=== PATIENT | male | born 1955 | race Caucasian/White ===

== ENCOUNTER 2018-04-25 15:46 | Inpatient (IN) ==
--- NOTE | 2018-04-25 21:15 | ED ---
HPI General Chief Complaint: Extremity Injury, Lower Stated Complaint: sent Time Seen by Provider: 04/25/18 20:29 Source: patient Mode of arrival: ambulatory Limitations: no limitations History of Present Illness HPI Narrative: 63-year-old male with PMH of DM, HNT, BPH, CAd s/p CABG, bovine MVR, on aspirin presents to the ED for evaluation of chronic foot wound. Patient states that he was sent in by his banking attorney, Dr. Layne for surgery tomorrow. The patient states that he has wound care daily at home and has had low grade temps of ~99.9 frequently. He endorses chills. He voices several frustrations regarding the course of his worsening foot problem, but has no acute complaints today. He stopped taking antibiotics earlier this week. He states that he has a PICC line in the right arm. He is very concerned that he does not currently have a wound vac on his wound. He endorses compliance with his daily medications. Related Data Home Medications Medication Instructions Recorded Confirmed amlodipine 5 mg PO DAILY 04/25/18 04/25/18 aspirin 81 mg PO DAILY 04/25/18 04/25/18 atorvastatin 40 mg PO DAILY 04/25/18 04/25/18 baclofen 10 mg PO TID 04/25/18 04/25/18 finasteride 5 mg PO DAILY 04/25/18 04/25/18 furosemide 20 mg PO DAILY 04/25/18 04/25/18 hydrocodone-acetaminophen 1 tab PO Q4H 04/25/18 04/25/18 insulin degludec [Tresiba 12 unit SUBCUT DAILY 04/25/18 04/25/18 FlexTouch U-100] linezolid [Zyvox] 600 mg PO BID 04/25/18 04/25/18 lisinopril 20 mg PO DAILY 04/25/18 04/25/18 metoprolol tartrate 25 mg PO BID 04/25/18 04/25/18 pantoprazole 40 mg PO DAILY 04/25/18 04/25/18 promethazine 25 mg PO Q6H PRN 04/25/18 04/25/18 tamsulosin 0.4 mg PO DAILY 04/25/18 04/25/18 Allergies Allergy/AdvReac Type Severity Reaction Status Date / Time bee venom protein (honey bee) Allergy Anaphylaxis Verified 04/25/18 16:15 Review of Systems ROS: all other systems reviewed are negative [facility] Surgical History Surgical History Aortic valve replaced (Acute) History of foot surgery (Acute) S/P CABG x 3 (Acute) Social History Social History Smoking Status: Never smoker How Often Do You Have a Drink Containing Alcohol: Never Recent Travel in [facility] [[email or web address]] within the Last 8 Weeks: No Recent Out of Country Travel within the Last 8 Weeks: No Immunization History Tetanus Immunization: Unsure Exam Narrative Exam Narrative: GENERAL: Well-nourished, well-developed white male no acute distress. SKIN: Focused skin assessment warm/dry. There is a approximate 2-1/2 cm x 2-1/ 2 cm wound over the MP joint of the great toe of the right foot. Majority of the wound is well granulated. There is a 1 cm area of yellow biofilm. The wound has a pseudomonal odor. Mild localized erythema and tenderness. HEAD: Atraumatic. Normocephalic. EYES: Pupils equal and round. No scleral icterus. No injection or drainage. ENT: No nasal bleeding or discharge. Mucous membranes pink and moist. NECK: Trachea midline. No JVD. CARDIOVASCULAR: Regular rate and rhythm. No murmur appreciated. RESPIRATORY: No accessory muscle use. Clear to auscultation. Breath sounds equal bilaterally. GASTROINTESTINAL: Abdomen soft, non-tender, nondistended. Hepatic and splenic margins not palpable. MUSCULOSKELETAL: No obvious deformities. No clubbing. No cyanosis. No edema. PICC LINE in the right arm. FOCUSED RIGHT LOWER EXTREMITY EXAM: 2+ DP pulse. Neurovascularly intact distally on each digit. Patient is able to flex and extend the toes and ankle. NEUROLOGICAL: Awake and alert. No obvious cranial nerve deficits. Motor grossly within normal limits. Normal speech. PSYCHIATRIC: Appropriate mood and affect; insight and judgment normal. Course Initial Documented Vital Signs Temperature 98.1 F 04/25/18 16:08 Pulse Rate 62 04/25/18 16:08 Respiratory Rate 18 04/25/18 16:08 Blood Pressure 145/65 H 04/25/18 16:08 Pulse Oximetry 100 04/25/18 16:08 Last Documented Vital Signs Temperature 98.1 F 04/25/18 16:08 Pulse Rate 70 04/25/18 23:44 Respiratory Rate 16 04/25/18 23:44 Blood Pressure 198/91 H 04/25/18 23:44 Pulse Oximetry 98 04/25/18 23:44 Medical Decision Making MDM Narrative Medical decision making narrative: 63-year-old male with PMH of DM, HTN, BPH, CAD status post CABG, bovine MVR, on aspirin presents the ED for admission for surgery. Patient states that his banking attorney, Dr. Layne sent him. He has several complaints about the course of his disease but no acute issues today. Afebrile on presentation. On physical exam is a chronic wound of the MP joint of the right foot without any cellulitic changes. Basic lab work with evidence of dehydration and elevated BGL. The patient was administered 1L NS, will recheck labs. I spoke with Dr. Will who states that he does not want the patient to have antibiotics or wound vac placed. I spoke with Dr. Bellamy who agrees to accept the patient to the medical service. Please see podiatry and medicine notes for disposition. The patient has another . Registration was unable to correct this issue overnight. Medical Screen Exam Complete: Yes Emergency Medical Condition: Yes Differential Diagnosis Differential Diagnosis: Chronic foot wound versus osteomyelitis versus cellulitis versus other Lab Data Result diagrams: 04/25/18 21:44 04/25/18 21:44 Lab Results 04/25/18 04/25/18 04/25/18 Range/Units 21:44 21:44 21:44 WBC 6.5 (4.0-11.0) th/mm3 RBC 2.99 L (4.50-5.90) mil/mm3 Hgb 8.7 L (13.0-17.0) gm/dL Hct 24.5 L (39.0-51.0) % MCV 82.1 (80.0-100.0) fL MCH 28.9 (27.0-34.0) pg MCHC 35.3 (32.0-36.0) % RDW 15.5 (11.6-17.2) % Plt Count 121 L (150-450) th/mm3 MPV 8.1 (7.0-11.0) fL Neut % (Auto) 65.1 (16.0-70.0) % Lymph % (Auto) 17.6 (9.0-44.0) % Pettis % (Auto) 13.5 H (0.0-8.0) % Eos % (Auto) 3.3 (0.0-4.0) % Baso % (Auto) 0.5 (0.0-2.0) % Neut # (Auto) 4.2 (1.8-7.7) th/mm3 Lymph # (Auto) 1.1 (1.0-4.8) th/mm3 [place]ettis # (Auto) 0.9 (0.0-0.9) th/mm3 Eos # (Auto) 0.2 (0.0-0.4) th/mm3 Baso # (Auto) 0.0 (0.0-0.2) th/mm3 WBC Differential . Differential Comment Auto diff final PT 10.8 (9.8-11.6) sec INR 1.1 Ratio APTT 26.8 (23.4-31.7) sec Sodium 138 (136-145) meq/L Potassium 4.7 (3.5-5.1) meq/L Chloride 104 (98-107) meq/L Carbon Dioxide 26.1 (21.0-32.0) meq/L Anion Gap 8 (5-15) meq/L BUN 28 H (7-18) mg/dL Creatinine 1.70 H (0.60-1.30) mg/dL Estimated GFR 41 L (>89) mL/min Random Glucose 314 H (74-106) mg/dL Calcium 8.4 L (8.5-10.1) mg/dL Total Bilirubin 0.3 (0.2-1.0) mg/dL AST 14 L (15-37) U/L ALT 20 (12-78) U/L Alkaline Phosphatase 84 (45-117) U/L Total Protein 6.8 (6.4-8.2) g/dL Albumin 3.2 L (3.4-5.0) g/dL Blood Type Antibody Screen 04/25/18 Range/Units 21:44 WBC (4.0-11.0) th/mm3 RBC (4.50-5.90) mil/mm3 Hgb (13.0-17.0) gm/dL Hct (39.0-51.0) % MCV (80.0-100.0) fL MCH (27.0-34.0) pg MCHC (32.0-36.0) % RDW (11.6-17.2) % Plt Count (150-450) th/mm3 MPV (7.0-11.0) fL Neut % (Auto) (16.0-70.0) % Lymph % (Auto) (9.0-44.0) % [place]ett[place] % (Auto) (0.0-8.0) % Eos % (Auto) (0.0-4.0) % Baso % (Auto) (0.0-2.0) % Neut # (Auto) (1.8-7.7) th/mm3 Lymph # (Auto) (1.0-4.8) th/mm3 [place]ettis # (Auto) (0.0-0.9) th/mm3 Eos # (Auto) (0.0-0.4) th/mm3 Baso # (Auto) (0.0-0.2) th/mm3 WBC Differential Differential Comment PT (9.8-11.6) sec INR Ratio APTT (23.4-31.7) sec Sodium (136-145) meq/L Potassium (3.5-5.1) meq/L Chloride (98-107) meq/L Carbon Dioxide (21.0-32.0) meq/L Anion Gap (5-15) meq/L BUN (7-18) mg/dL Creatinine (0.60-1.30) mg/dL Estimated GFR (>89) mL/min Random Glucose (74-106) mg/dL Calcium (8.5-10.1) mg/dL Total Bilirubin (0.2-1.0) mg/dL AST (15-37) U/L ALT (12-78) U/L Alkaline Phosphatase (45-117) U/L Total Protein (6.4-8.2) g/dL Albumin (3.4-5.0) g/dL Blood Type O Positive Antibody Screen Negative Imaging Data Radiologist's impression: Chest X-Ray 04/25/18 21:11 CONCLUSION: No infiltrates seen. Foot X-Ray 04/25/18 21:11 CONCLUSION: Bony erosive changes at the distal medial aspect of the first metatarsal and probably the medial sesamoid at the MTP most characteristic of osteomyelitis with overlying soft tissue swelling. There is periarticular osteopenia in the right foot as well. ECG Data Attestation: I personally reviewed and interpreted this ECG as follows: Interpretation: Rate 66, sinus rhythm. AL interval 167, QRS 90, QTc [address] changes. Reviewed by Dr. Nelson. Discharge Plan Discharge Disposition Patient Disposition: 30 Still Patient Physicians Team ED Provider: Evans Nelson ED Midlevel Provider: Kiara Schultz Primary Care Provider: NON STAFF,PROVIDER Attending Provider: Gabby Bellamy Other Providers: Andrew Morales ; Silvia Will Status ED Status: Admitted Observation Patient
--- NOTE | 2018-04-25 21:49 | XR ---
EXAM DATE: 04/25/2018 9:46 PM EST AGE/SEX: 63 years / Male INDICATIONS: Evaluate for pneumonia, pneumothorax, or communicable disease. Pre-op right foot. CLINICAL DATA: This is the patient's initial encounter. Patient reports that signs and symptoms have been present for 1 day and indicates a pain score of 0/10. MEDICAL/SURGICAL HISTORY: None. CABG. COMPARISON: [facility] [place] 1[place] AP, 02/15/2018. . FINDINGS: A single AP view of the chest demonstrates the lungs to be symmetrically aerated without evidence of mass, infiltrate or effusion. The cardiomediastinal contours are unremarkable. Osseous structures a re intact. Evidence of prior median sternotomy. CONCLUSION: No infiltrates seen. Electronically signed by: Luis A Hernandez MD 04/25/2018 9:47 PM EST
--- NOTE | 2018-04-25 21:56 | XR ---
EXAM DATE: 04/25/2018 9:50 PM EST AGE/SEX: 63 years / Male INDICATIONS: Right foot infection, swelling, and inflammation. Pre-op right foot. CLINICAL DATA: This is the patient's initial encounter. Patient reports that signs and symptoms have been present for 1 month and indicates a pain score of 5/10. MEDICAL/SURGICAL HISTORY: None. None. [place] [facility] [place]. . FINDINGS: There is soft tissue swelling in the medial aspect of the first MTP with bony erosive changes at the medial aspect of the distal first metatarsal most characteristic of osteomyelitis. There may also be some erosive changes at the medial sesamoid bone at the first MTP. There is periarticular osteopenia in the right foot. CONCLUSION: Bony erosive changes at the distal medial aspect of the first metatarsal and probably the medial sesa moid at the MTP most characteristic of osteomyelitis with overlying soft tissue swelling. There is pe riarticular osteopenia in the right foot as well. Electronically signed by: Memo Braden MD 04/25/2018 9:54 PM EST
[2018-04-25 22:10] LABS: Baso % (Auto) 0.5 % (0.0-2.0); Eos # (Auto) 0.2 th/mm3 (0.0-0.4); Eos % (Auto) 3.3 % (0.0-4.0); Hematocrit 24.5 % (39.0-51.0); Hemoglobin 8.7 gm/dL (13.0-17.0); Lymph # (Auto) 1.1 th/mm3 (1.0-4.8); Lymph % (Auto) 17.6 % (9.0-44.0); Mean Corpuscular HGB Conc 35.3 % (32.0-36.0); Mean Corpuscular Hemoglobin 28.9 pg (27.0-34.0); Mean Corpuscular Volume 82.1 fL (80.0-100.0); Mean Platelet Volume 8.1 fL (7.0-11.0); Mono # (Auto) 0.9 th/mm3 (0.0-0.9); Mono % (Auto) 13.5 % (0.0-8.0); Neut # (Auto) 4.2 th/mm3 (1.8-7.7); Neut % (Auto) 65.1 % (16.0-70.0); Platelet Count 121 th/mm3 (150-450); Red Blood Count 2.99 mil/mm3 (4.50-5.90); Red Cell Distribution Width 15.5 % (11.6-17.2); White Blood Count 6.5 th/mm3 (4.0-11.0)
[2018-04-25 22:30] LABS: Albumin 3.2 g/dL (3.4-5.0); Anion Gap 8 meq/L (5-15); Aspartate Aminotransferase 14 U/L (15-37); Blood Urea Nitrogen 28 mg/dL (7-18); Calcium 8.4 mg/dL (8.5-10.1); Carbon Dioxide 26.1 meq/L (21.0-32.0); Chloride 104 meq/L (98-107); Glomerular Filtration Rate 41 mL/min (>89); Glucose,Random 314 mg/dL (74-106); Potassium 4.7 meq/L (3.5-5.1); Sodium 138 meq/L (136-145)
[2018-04-25 22:31] LABS: Alanine Aminotransferase 20 U/L (12-78)
[2018-04-25 22:33] LABS: Alkaline Phosphatase 84 U/L (45-117); Total Protein 6.8 g/dL (6.4-8.2)
[2018-04-25 22:40] LABS: Activated Partial Thrombo Time 26.8 sec (23.4-31.7); INR 1.1 Ratio; Prothrombin Time 10.8 sec (9.8-11.6)
[2018-04-25] MEDS ORDERED: Sod Chloride 0.9% Inj 1,000 ML IV.SIG ONE (22:46)
[2018-04-26] MEDS ORDERED: Acetaminophen 325 MG Tablet PO PRN (01:03)
[2018-04-26] MEDS ORDERED: Zolpidem Tartrate 5 MG Tablet PO PRN (01:03)
[2018-04-26] MEDS ORDERED: Bisacodyl 10 MG Supp RECTAL PRN (01:03)
[2018-04-26] MEDS ORDERED: Dextrose 50% in Water 50 ML Vial IV.PUSH PRN (01:05)
[2018-04-26] MEDS ORDERED: Sodium Chloride 0.9% 2 ML Flush PRN IV.FLUSH (01:08)
[2018-04-26] MEDS ORDERED: hydrALAZINE HCl Inj 20 MG/ML Vial IV.PUSH ONE (01:15)
[2018-04-26] MEDS: Sod Chloride 0.9% Inj 1,000 ML IV.CONT SCH ×3 (01:23→18:35)
--- NOTE | 2018-04-26 05:09 | P.HP ---
History of Present Illness Service: [facility] Primary Care Physician: PROVIDER NON STAFF History of Present Illness: 63-year-old male with past medical history significant for hypertension, diabetes mellitus, coronary artery disease and hyperlipidemia presents to the emergency department for a scheduled bone biopsy of his right foot with Dr. Layne. The patient reports that he was told he would be a direct admission however on his arrival he was instructed to come to the emergency department. Per the patient, he is being treated for osteomyelitis of the right foot. He was previously on Zyvox through a PICC line for the past 3 weeks that was stopped on Sunday at the instruction of his infectious disease doctor, Dr. 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 He also had a wound VAC present until 3 days ago. The patient denies any recent fevers/chills. No chest pain or shortness of breath. No abdominal pain. No nausea/vomiting/ diarrhea. No focal neurologic symptoms. Inpatient Certification: I certify that the inpatient services were ordered in accordance with Medicare regulations governing the order. This includes certification that hospital inpatient services are reasonable and necessary and in the case of services not specified as inpatient-only under 42 CFR 419.22(n), that they are appropriately provided as inpatient services in accordance to with the 2-midnight benchmark under 43 CFR 412.3(e) Estimated Total Length of Stay (Days): 3 Plans for Post Hospital Care: Home Review of Systems All other systems reviewed negative except as stated [facility] - History History Provided By: Patient - Medical History Medical History: Medical History (Last Updated 04/26/18 @ 04:56 by Gabby Bellamy MD) Coronary artery disease Diabetes mellitus Hypertension - Surgical History Surgical History: Surgical History (Last Reviewed 04/26/18 @ 04:56 by Gabby Bellamy MD) Aortic valve replaced History of foot surgery S/P CABG x 3 - Family History Family History: Family History (Last Updated 04/26/18 @ 04:56 by Gabby Bellamy MD) Other Coronary artery disease Diabetes mellitus - Social History I have reviewed the patient's Social History: Yes - Tobacco History Smoking Status: Never smoker - Alcohol History How Often Do You Have a Drink Containing Alcohol: Never - Travel History Recent Travel in the [facility] Within the Last 8 Weeks: No Recent Travel Out of the Country Within the Last 8 Weeks: No - Immunization History Tetanus Immunization: Unsure Medications and Allergies Active Medications: Active Medications Acetaminophen (Tylenol) 650 mg PO Q4H PRN PRN Reason: Temp > 100.4 Hydrocodone Bitart/Acetaminophen ([place] 10/325) 1 tab PO Q4H PRN PRN Reason: pain>4 Amlodipine Besylate (Norvasc) 5 mg PO DAILY@0600 [facility] Atorvastatin Calcium (Lipitor) 40 mg PO DAILY [facility] Baclofen (Lioresal) 10 mg PO TID [facility] Bisacodyl (Dulcolax Supp) 10 mg RECTAL DAILY PRN PRN Reason: SEVERE CONSITIPATION Dextrose (D50w Vial) 50 ml IV.PUSH UNSCH PRN PRN Reason: PER HYPOGLYCEMIA PROTOCOL Finasteride (Proscar) 5 mg PO DAILY [facility] Furosemide (Lasix) 20 mg PO DAILY [facility] Glucagon (Glucagon Inj) 1 mg OTHER PRN PRN PRN Reason: for Hypoglycemia Protocol Sodium Chloride (Ns Inj) 1,000 mls @ 75 mls/hr IV.CONT .[id number] [facility] Last Admin: 04/26/18 01:23 Dose: 75 mls/hr Insulin Aspart (Novolog Insulin Correctional Sugar Inj) 0 unit SQ ACHS JENNIFER; Protocol Lisinopril (Prinivil) 20 mg PO DAILY [facility] Metoprolol Tartrate (Lopressor) 25 mg PO BID [facility] Pantoprazole Sodium (Protonix) 40 mg PO DAILY [facility] Promethazine HCl (Phenergan) 25 mg PO Q6H PRN PRN Reason: Nausea Sennosides (Senokot) 17.2 mg PO Q12H PRN PRN Reason: Moderate Constipation Sodium Chloride (Ns Flush) 2 ml IV.FLUSH BID [facility] Sodium Chloride (Ns Flush) 2 ml IV.FLUSH PRN PRN PRN Reason: FLUSH AFTER USING IV ACCESS Tamsulosin HCl (Flomax) 0.4 mg PO DAILY [facility] Zolpidem Tartrate (Ambien) 5 mg PO HS PRN PRN Reason: INSOMNIA Allergies Allergy/AdvReac Type Severity Reaction Status Date / Time bee venom protein (honey bee) Allergy Anaphylaxis Verified 04/25/18 16:15 Home Medications Medication Instructions Recorded Confirmed Type amlodipine 5 mg PO DAILY 04/25/18 04/25/18 History aspirin 81 mg PO DAILY 04/25/18 04/25/18 History atorvastatin 40 mg PO DAILY 04/25/18 04/25/18 History baclofen 10 mg PO TID 04/25/18 04/25/18 History finasteride 5 mg PO DAILY 04/25/18 04/25/18 History furosemide 20 mg PO DAILY 04/25/18 04/25/18 History hydrocodone-acetaminophen 1 tab PO Q4H 04/25/18 04/25/18 History insulin degludec [Tresiba 12 unit SUBCUT DAILY 04/25/18 04/25/18 History FlexTouch U-100] linezolid [Zyvox] 600 mg PO BID 04/25/18 04/25/18 History lisinopril 20 mg PO DAILY 04/25/18 04/25/18 History metoprolol tartrate 25 mg PO BID 04/25/18 04/25/18 History pantoprazole 40 mg PO DAILY 04/25/18 04/25/18 History promethazine 25 mg PO Q6H PRN 04/25/18 04/25/18 History tamsulosin 0.4 mg PO DAILY 04/25/18 04/25/18 History Exam Vital signs: Vital Signs 04/25/18 16:08 04/25/18 21:30 04/25/18 22:20 Temperature 98.1 F Pulse Rate 62 68 Respiratory Rate 18 16 Blood Pressure 145/65 H 178/79 H Pulse Oximetry 100 97 98 04/25/18 23:12 04/25/18 23:44 04/26/18 01:21 Temperature Pulse Rate 70 68 Respiratory Rate 16 16 16 Blood Pressure 198/91 H 202/91 H Pulse Oximetry 98 98 04/26/18 01:27 04/26/18 01:32 04/26/18 01:37 Temperature Pulse Rate 71 70 72 Respiratory Rate 18 Blood Pressure 178/79 H 161/72 H 154/59 H Pulse Oximetry 97 04/26/18 01:42 04/26/18 01:47 04/26/18 01:52 Temperature Pulse Rate 72 70 70 Respiratory Rate 18 Blood Pressure 146/65 H 139/65 141/62 H Pulse Oximetry 97 04/26/18 03:58 Temperature 98.5 F Pulse Rate 76 Respiratory Rate 17 Blood Pressure 190/90 H Pulse Oximetry 96 Intake & Output 04/25/18 04/25/18 04/26/18 06:59 18:59 06:59 Intake Total 1000 / 1000 Balance 1000 / 1000 Weight 92.986 kg Intake: IV 1000 / 1000 NS Inj 1,000 ML @ Wide Open IV. 1000 / 1000 SIG BOLUS ONE Rx#:[id number] Narrative: Gen.: No acute distress Head: Normocephalic. Atraumatic. EENT: Pupils equal round and reactive to light. Nose without drainage. Airway intact. Throat without injection. Cardiovascular: Regular rate and rhythm. No murmurs, rubs or gallops. Respiratory: Lungs clear to auscultation bilaterally. No wheezes or rhonchi. Abdomen: Soft, nontender, nondistended. No peritoneal signs. Musculoskeletal: No gross deformities. No edema. Skin: Right foot wound, dressed. Dressing clean/dry/intact. Neuro: Sensory and motor grossly intact. Cranial nerves II through XII grossly intact. Results - Labs CBC & Chem 7: 04/25/18 21:44 04/25/18 21:44 Labs: Laboratory Results - last 24 hr 04/25/18 04/25/18 04/25/18 21:44 21:44 21:44 WBC 6.5 RBC 2.99 L Hgb 8.7 L Hct 24.5 L MCV 82.1 MCH 28.9 MCHC 35.3 RDW 15.5 Plt Count 121 L MPV 8.1 Neut % (Auto) 65.1 Lymph % (Auto) 17.6 [place] % (Auto) 13.5 H Eos % (Auto) 3.3 Baso % (Auto) 0.5 Neut # (Auto) 4.2 Lymph # (Auto) 1.1 [place] # (Auto) 0.9 Eos # (Auto) 0.2 Baso # (Auto) 0.0 WBC Differential . Differential Comment Auto diff final PT 10.8 INR 1.1 APTT 26.8 Sodium 138 Potassium 4.7 Chloride 104 Carbon Dioxide 26.1 Anion Gap 8 BUN 28 H Creatinine 1.70 H Estimated GFR 41 L Random Glucose 314 H Calcium 8.4 L Total Bilirubin 0.3 AST 14 L ALT 20 Alkaline Phosphatase 84 Total Protein 6.8 Albumin 3.2 L Blood Type Antibody Screen 04/25/18 21:44 WBC RBC Hgb Hct MCV MCH MCHC RDW Plt Count MPV Neut % (Auto) Lymph % (Auto) [place] % (Auto) Eos % (Auto) Baso % (Auto) Neut # (Auto) Lymph # (Auto) [place] # (Auto) Eos # (Auto) Baso # (Auto) WBC Differential Differential Comment PT INR APTT Sodium Potassium Chloride Carbon Dioxide Anion Gap BUN Creatinine Estimated GFR Random Glucose Calcium Total Bilirubin AST ALT Alkaline Phosphatase Total Protein Albumin Blood Type O Positive Antibody Screen Negative - Imaging Impressions Chest X-Ray 04/25/18 21:11 CONCLUSION: No infiltrates seen. Foot X-Ray 04/25/18 21:11 CONCLUSION: Bony erosive changes at the distal medial aspect of the first metatarsal and probably the medial sesamoid at the MTP most characteristic of osteomyelitis with overlying soft tissue swelling. There is periarticular osteopenia in the right foot as well. Caprini VTE Risk Assessment Caprini VTE Risk Assessment: Moderate/High Risk (score >= 2) Caprini Risk Assessment Model: Point Value = 1 Point Value = 2 Point Value = 3 Point Value = 5 Age 41-60 Minor surgery BMI > 25 kg/m2 Swollen legs Varicose veins or History of unexplained or recurrent spontaneous Oral contraceptives or hormone replacement Sepsis (< 1 month) Serious lung disease, including pneumonia (< 1 month) Abnormal pulmonary function Acute myocardial infarction Congestive heart failure (< 1 month) History of inflammatory bowel disease Medical patient at bed rest Age 61-74 Arthroscopic surgery Major open surgery (> 45 min) Laparoscopic surgery (> 45 min) Malignancy Confined to bed (> 72 hours) Immobilizing plaster cast Central venous access Age >= 75 History of VTE Family history of VTE Factor V Leiden Prothrombin [id number] Lupus anticoagulant Anticardiolipin antibodies Elevated serum homocysteine Heparin-induced thrombocytopenia Other congenital or acquired thrombophilia Stroke (< 1 month) Elective arthroplasty Hip, pelvis, or leg fracture Acute spinal cord injury (< 1 month) Prophylaxis Regimen: Total Risk Factor Score Risk Level Prophylaxis Regimen 0-1 Low Early ambulation 2 Moderate Order ONE of the following: *Sequential Compression Device (SCD) *Heparin 5000 units SQ BID 3-4 Higher Order ONE of the following medications: *Heparin 5000 units SQ TID *Enoxaparin/Lovenox 40 mg SQ daily (WT < 150 kg, CrCl > 30 mL/min) *Enoxaparin/Lovenox 30 mg SQ daily (WT < 150 kg, CrCl > 10-29 mL/min) *Enoxaparin/Lovenox 30 mg SQ BID (WT < 150 kg, CrCl > 30 mL/min) AND/OR *Sequential Compression Device (SCD) 5 or more Highest Order ONE of the following medications: *Heparin 5000 units SQ TID (Preferred with Epidurals) *Enoxaparin/Lovenox 40 mg SQ daily (WT < 150 kg, CrCl > 30 mL/min) *Enoxaparin/Lovenox 30 mg SQ daily (WT < 150 kg, CrCl > 10-29 mL/min) *Enoxaparin/Lovenox 30 mg SQ BID (WT < 150 kg, CrCl > 30 mL/min) AND *Sequential Compression Device (SCD) Assessment and Plan - Plan Assessment/plan: 1. Right foot osteomyelitis Patient with known MRSA osteomyelitis, admitted at the recommendation of his oxygen plant operator for bone biopsy Foot x-ray significant for bony erosive changes at the distal medial aspect of the first metatarsal most characteristic of osteomyelitis Per podiatry recommendations, holding antibiotics until after bone biopsy completed. See ED documentation for further details. Podiatry consulted, appreciate assistance 2. Coronary artery disease Status post CABG Continue home medications Holding aspirin for bone biopsy 3. Diabetes Sliding-scale insulin Monitor blood glucose 4. Hypertension/hyperlipidemia Continue home medications 5. Acute renal insufficiency Cr 1.70, baseline unknown Likely chronic component IV fluid hydration Monitor renal function FEN N.p.o. Electrolytes: Monitor and replete as needed NS at 100 cc/hour Holding pharmacologic anticoagulation for surgical intervention
[2018-04-26] MEDS: amLODIPine 5 MG Tablet PO SCH (05:18)
[2018-04-26 05:40] LABS: Baso # (Auto) 0.1 th/mm3 (0.0-0.2); Baso % (Auto) 0.9 % (0.0-2.0); Eos # (Auto) 0.2 th/mm3 (0.0-0.4); Eos % (Auto) 2.5 % (0.0-4.0); Hematocrit 23.4 % (39.0-51.0); Hemoglobin 8.3 gm/dL (13.0-17.0); Lymph # (Auto) 0.9 th/mm3 (1.0-4.8); Lymph % (Auto) 12.7 % (9.0-44.0); Mean Corpuscular HGB Conc 35.4 % (32.0-36.0); Mean Platelet Volume 8.1 fL (7.0-11.0); Mono # (Auto) 0.9 th/mm3 (0.0-0.9); Mono % (Auto) 11.9 % (0.0-8.0); Neut # (Auto) 5.2 th/mm3 (1.8-7.7); Platelet Count 108 th/mm3 (150-450); Red Blood Count 2.86 mil/mm3 (4.50-5.90); Red Cell Distribution Width 15.4 % (11.6-17.2); White Blood Count 7.2 th/mm3 (4.0-11.0)
[2018-04-26 06:05] LABS: Carbon Dioxide 24.5 meq/L (21.0-32.0); Potassium 4.2 meq/L (3.5-5.1)
[2018-04-26] MEDS ORDERED: amLODIPine 5 MG Tablet PO SCH (09:00)
[2018-04-26] MEDS: Furosemide 20 MG Tablet PO SCH (09:07)
[2018-04-26] MEDS: Finasteride 5 MG Tablet PO SCH (09:07)
[2018-04-26] MEDS: Lisinopril 20 MG Tablet PO SCH (09:07)
[2018-04-26] MEDS: Baclofen 10 MG Tablet PO SCH ×3 (09:07→18:25)
[2018-04-26] MEDS: Metoprolol Tartrate 25 MG Tablet PO SCH ×2 (09:08→21:04)
[2018-04-26] MEDS: Insulin NovoLOG Aspart Correctional Sugar Inj SQ SCH ×4 (09:09→21:40)
[2018-04-26] MEDS: Sodium Chloride 0.9% 2 ML Flush BID IV.FLUSH SCH ×2 (09:09→22:27)
--- NOTE | 2018-04-26 14:29 | ECG ---
Date Performed: 04/25/2018 Time Performed: 21:41:29 PTAGE: 63 years EKG: Sinus rhythm PROBABLE INFERIOR MYOCARDIAL INFARCTION ABNORMAL ECG NO PREVIOUS TRACING DOCTOR: Afia Fernandez Interpretating Date/Time 04/26/2018 14:27:19
[2018-04-26] MEDS ORDERED: Succinylcholine Inj 100 MG/5 ML Syringe IV.PUSH ONE (15:50)
[2018-04-26] MEDS ORDERED: Glycopyrrolate Inj 1 MG/5 ML Syringe IV.PUSH ONE (15:50)
[2018-04-26] MEDS ORDERED: Bupivacaine PF 0.5% Inj 30 ML Vial ONE (16:14)
--- NOTE | 2018-04-26 16:30 | P.PN ---
Subjective Interval history: Follow up for right foot infection: Patient seen and examined, awake alert and oriented x3. Patient very anxious, has multiple complaints and concerns about his blood pressure. Blood pressure this morning 201/89. Patient very concerned that fifth floor staff cannot administer hydralazine as he was promised. Informed that the staff is not able to give certain types of IV medications to treat blood pressure. Informed him that I have ordered Vasotec PRN. He has just taken his morning medications so we will reevaluate his blood pressure in 1 hour. Reassurance provided to patient, RN and charge nurse at bedside. Physical Exam Vital signs: Vital Signs 04/25/18 21:30 04/25/18 22:20 04/25/18 23:12 Temperature Pulse Rate 68 Respiratory Rate 16 16 Blood Pressure 178/79 H Pulse Oximetry 97 98 04/25/18 23:44 04/26/18 01:21 04/26/18 01:27 Temperature Pulse Rate 70 68 71 Respiratory Rate 16 16 Blood Pressure 198/91 H 202/91 H 178/79 H Pulse Oximetry 98 98 04/26/18 01:32 04/26/18 01:37 04/26/18 01:42 Temperature Pulse Rate 70 72 72 Respiratory Rate 18 18 Blood Pressure 161/72 H 154/59 H 146/65 H Pulse Oximetry 97 97 04/26/18 01:47 04/26/18 01:52 04/26/18 03:58 Temperature 98.5 F Pulse Rate 70 70 76 Respiratory Rate 17 Blood Pressure 139/65 141/62 H 190/90 H Pulse Oximetry 96 04/26/18 08:00 04/26/18 11:15 04/26/18 12:00 Temperature 98.1 F 97.9 F 98.1 F Pulse Rate 84 58 L 84 Respiratory Rate 20 20 20 Blood Pressure 146/73 H 159/74 H 154/73 H Pulse Oximetry 98 98 98 Intake & Output 04/25/18 04/26/18 04/26/18 18:59 06:59 18:59 Intake Total 1000 / 1000 1000 / 1000 Balance 1000 / 1000 1000 / 1000 Weight 92.986 kg 92.98 kg Intake: IV 1000 / 1000 1000 / 1000 NS Inj 1,000 ML @ 100 mls/hr IV 1000 / 1000 .CONT .Q10H [facility] Rx#:[id number] NS Inj 1,000 ML @ Wide Open IV. 1000 / 1000 SIG BOLUS ONE Rx#:[id number] Other: # Voids 1 Date of Last Bowel Movement 04/26/18 04/26/18 Weight On Admission 92.98 kg Narrative: Gen.: No acute distress Head: Normocephalic. Atraumatic. EENT: Pupils equal round and reactive to light. Nose without drainage. Airway intact. Throat without injection. Cardiovascular: Regular rate and rhythm. No murmurs, rubs or gallops. Respiratory: Lungs clear to auscultation bilaterally. No wheezes or rhonchi. Abdomen: Soft, nontender, nondistended. No peritoneal signs. Musculoskeletal: No gross deformities. Bilateral lower extremities with pretibial edema, right leg greater than left. Pedal pulses difficult to palpate on the right foot due to edema. Left pedal pulses 1+. Skin: Right foot wound, dressed. Dressing clean/dry/intact. Neuro: Awake, alert oriented x3. No focal deficits Results - Labs CBC & Chem 7: 04/26/18 05:25 04/26/18 05:25 Laboratory Results - last 24 hr 04/25/18 04/25/18 04/25/18 21:44 21:44 21:44 WBC 6.5 RBC 2.99 L Hgb 8.7 L Hct 24.5 L MCV 82.1 MCH 28.9 MCHC 35.3 RDW 15.5 Plt Count 121 L MPV 8.1 Neut % (Auto) 65.1 Lymph % (Auto) 17.6 Mills % (Auto) 13.5 H Eos % (Auto) 3.3 Baso % (Auto) 0.5 Neut # (Auto) 4.2 Lymph # (Auto) 1.1 [place] # (Auto) 0.9 Eos # (Auto) 0.2 Baso # (Auto) 0.0 WBC Differential . Differential Comment Auto diff final PT 10.8 INR 1.1 APTT 26.8 Sodium 138 Potassium 4.7 Chloride 104 Carbon Dioxide 26.1 Anion Gap 8 BUN 28 H Creatinine 1.70 H Estimated GFR 41 L POC Glucose Random Glucose 314 H Calcium 8.4 L Total Bilirubin 0.3 AST 14 L ALT 20 Alkaline Phosphatase 84 Total Protein 6.8 Albumin 3.2 L Blood Type Antibody Screen 04/25/18 04/26/18 04/26/18 21:44 05:25 05:25 WBC 7.2 RBC 2.86 L Hgb 8.3 L Hct 23.4 L MCV 82.0 MCH 29.0 MCHC 35.4 RDW 15.4 Plt Count 108 L MPV 8.1 Neut % (Auto) 72.0 H Lymph % (Auto) 12.7 [place] % (Auto) 11.9 H Eos % (Auto) 2.5 Baso % (Auto) 0.9 Neut # (Auto) 5.2 Lymph # (Auto) 0.9 L [place] # (Auto) 0.9 Eos # (Auto) 0.2 Baso # (Auto) 0.1 WBC Differential . Differential Comment Auto diff final PT INR APTT Sodium 140 Potassium 4.2 Chloride 107 Carbon Dioxide 24.5 Anion Gap 9 BUN 28 H Creatinine 1.56 H Estimated GFR 45 L POC Glucose Random Glucose 242 H Calcium 8.0 L Total Bilirubin AST ALT Alkaline Phosphatase Total Protein Albumin Blood Type O Positive Antibody Screen Negative 04/26/18 04/26/18 08:12 12:49 WBC RBC Hgb Hct MCV MCH MCHC RDW Plt Count MPV Neut % (Auto) Lymph % (Auto) [place] % (Auto) Eos % (Auto) Baso % (Auto) Neut # (Auto) Lymph # (Auto) [place] # (Auto) Eos # (Auto) Baso # (Auto) WBC Differential Differential Comment PT INR APTT Sodium Potassium Chloride Carbon Dioxide Anion Gap BUN Creatinine Estimated GFR POC Glucose 253 H 139 H Random Glucose Calcium Total Bilirubin AST ALT Alkaline Phosphatase Total Protein Albumin Blood Type Antibody Screen - Imaging Impressions Chest X-Ray 04/25/18 21:11 CONCLUSION: No infiltrates seen. Foot X-Ray 04/25/18 21:11 CONCLUSION: Bony erosive changes at the distal medial aspect of the first metatarsal and probably the medial sesamoid at the MTP most characteristic of osteomyelitis with overlying soft tissue swelling. There is periarticular osteopenia in the right foot as well. 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 - Methicillin resistant Staphylococcus aureus infection, unspecified site Status: Chronic (3) Diabetes 1.5, managed as type 2 Code(s): E10.9 - Type 1 diabetes mellitus without complications Status: Chronic (4) Hypertension Code(s): I10 - Essential (primary) hypertension Status: Chronic (5) Renal insufficiency Code(s): N28.9 - Disorder of kidney and ureter, unspecified Status: Acute (6) Anxiety Code(s): F41.9 - Anxiety disorder, unspecified Status: Acute - Plan 63-year-old male with past medical history significant for hypertension, diabetes mellitus, coronary artery disease and hyperlipidemia presents to the emergency department for a scheduled bone biopsy of his right foot with Dr. Layne. Right foot osteomyelitis Hx of incision and drainage of right foot 02/16/2018 and right foot redebridement 02/19 Patient with known MRSA osteomyelitis, admitted at the recommendation of his campus director for bone biopsy Foot x-ray significant for bony erosive changes at the distal medial aspect of the first metatarsal most characteristic of osteomyelitis -Per podiatry recommendations, holding antibiotics until after bone biopsy completed. See ED documentation for further details. -Podiatry consulted, appreciate assistance Coronary artery disease Status post CABG -Holding aspirin for bone biopsy Diabetes Blood glucose elevated -Sliding-scale insulin -Add Levemir 12 units SQ daily Hypertension/hyperlipidemia -Continue Prinivil, Lopressor, Lasix, Norvasc -continue Lipitor CKD (stage III) Cr 1.70 -continue IV fluid hydration -Monitor renal function -avoid nephrotoxic agents History of prosthetic valve replacement -Had recent echo -stable, continue medical management Hx of urinary retention -continue Flomax. Anemia Likely due to CKD -monitor HH BMP in am Holding pharmacologic anticoagulation for surgical intervention Code Status: Full code Discussed Condition With: RN, pt, charge nurse on Discharge Planning: Likely HHC in 2-3 days (1) Osteomyelitis Qualifiers: Osteomyelitis type: unspecified type Osteomyelitis location: foot (4) Hypertension Qualifiers: Hypertension type: essential hypertension Qualified Code(s): I10 - Essential (primary) hypertension
--- NOTE | 2018-04-26 16:40 | P.CONPOD ---
History of Present Illness Service: Podiatry Consult date: 04/26/18 Reason for Consult: right foot infection, possible osteomyelitis Primary Care Provider: PROVIDER NON STAFF History of Present Illness: Patient had gas gangrene a few months ago and has been on IV antibiotics with wound care and wound vac to right foot. He had areas of beginning necrotic tissue to the medial aspect of the capsule and I explained that bone is beneath that area and he would need to undergo bone biopsy prior to any kind of grafting over the wound. Patient was admitted for further work up and medical/ surgical management of this infection to try to achieve resolution. He has minimal discomfort secondary to neuropathy Review of Systems All other systems reviewed negative except as stated in HPI PMFSH - History History Provided By: Patient - Medical History Medical History: Medical History (Last Updated 04/26/18 @ 04:56 by Gabby Bellamy MD) Coronary artery disease Diabetes mellitus Hypertension - Surgical History Surgical History: Surgical History (Last Reviewed 04/26/18 @ 04:56 by Gabby Bellamy MD) Aortic valve replaced History of foot surgery S/P CABG x 3 - Family History Family History: Family History (Last Updated 04/26/18 @ 04:56 by Gabby Bellamy MD) Other Coronary artery disease Diabetes mellitus - Tobacco History Second Hand Smoke Exposure: No Smoking Status: Never smoker - Alcohol History How Often Do You Have a Drink Containing Alcohol: Never - Substance Use History Substance History: No History of Abuse - Travel History Recent Travel in the [place] Within the Last 8 Weeks: No Recent Travel Out of the Country Within the Last 8 Weeks: No - Immunization History Tetanus Immunization: Unsure Medications and Allergies Active Medications: Active Medications Acetaminophen (Tylenol) 650 mg PO Q4H PRN PRN Reason: Temp > 100.4 Hydrocodone Bitart/Acetaminophen (Laverne 10/325) 1 tab PO Q4H PRN PRN Reason: pain>4 Amlodipine Besylate (Norvasc) 5 mg PO DAILY@0600 [facility] Last Admin: 04/26/18 05:18 Dose: 5 mg Atorvastatin Calcium (Lipitor) 40 mg PO DAILY [facility] Last Admin: 04/26/18 09:08 Dose: 40 mg Baclofen (Lioresal) 10 mg PO TID [facility] Last Admin: 04/26/18 13:23 Dose: 10 mg Bisacodyl (Dulcolax Supp) 10 mg RECTAL DAILY PRN PRN Reason: SEVERE CONSITIPATION Dextrose (D50w Vial) 50 ml IV.PUSH UNSCH PRN PRN Reason: PER HYPOGLYCEMIA PROTOCOL Enalaprilat (Vasotec Inj) 1.25 mg IV.PUSH Q6H PRN PRN Reason: SBP> 165 or DBP> 90 Finasteride (Proscar) 5 mg PO DAILY [facility] Last Admin: 04/26/18 09:07 Dose: 5 mg Furosemide (Lasix) 20 mg PO DAILY [facility] Last Admin: 04/26/18 09:07 Dose: 20 mg Glucagon (Glucagon Inj) 1 mg OTHER PRN PRN PRN Reason: for Hypoglycemia Protocol Sodium Chloride (Ns Inj) 1,000 mls @ 100 mls/hr IV.CONT .Q10H [facility] Last Admin: 04/26/18 13:30 Dose: 75 mls/hr Insulin Aspart (Novolog Insulin Correctional Sugar Inj) 0 unit SQ ACHS [facility]; Protocol Last Admin: 04/26/18 13:02 Dose: Not Given Insulin Detemir (Levemir Inj) 12 unit SQ DAILY [facility] Lisinopril (Prinivil) 20 mg PO DAILY [facility] Last Admin: 04/26/18 09:07 Dose: 20 mg Metoprolol Tartrate (Lopressor) 25 mg PO BID [facility] Last Admin: 04/26/18 09:08 Dose: 25 mg Pantoprazole Sodium (Protonix) 40 mg PO DAILY [facility] Last Admin: 04/26/18 09:07 Dose: 40 mg Promethazine HCl (Phenergan) 25 mg PO Q6H PRN PRN Reason: Nausea Last Admin: 04/26/18 05:19 Dose: 25 mg Sennosides (Senokot) 17.2 mg PO Q12H PRN PRN Reason: Moderate Constipation Sodium Chloride (Ns Flush) 2 ml IV.FLUSH BID [facility] Last Admin: 04/26/18 09:09 Dose: 2 ml Sodium Chloride (Ns Flush) 2 ml IV.FLUSH PRN PRN PRN Reason: FLUSH AFTER USING IV ACCESS Tamsulosin HCl (Flomax) 0.4 mg PO DAILY [facility] Last Admin: 04/26/18 09:07 Dose: 0.4 mg Zolpidem Tartrate (Ambien) 5 mg PO HS PRN PRN Reason: INSOMNIA Allergies Allergy/AdvReac Type Severity Reaction Status Date / Time bee venom protein (honey bee) Allergy Anaphylaxis Verified 04/25/18 16:15 Home Medications Medication Instructions Recorded Confirmed Type amlodipine 5 mg PO DAILY 04/25/18 04/25/18 History aspirin 81 mg PO DAILY 04/25/18 04/25/18 History atorvastatin 40 mg PO DAILY 04/25/18 04/25/18 History baclofen 10 mg PO TID 04/25/18 04/25/18 History finasteride 5 mg PO DAILY 04/25/18 04/25/18 History furosemide 20 mg PO DAILY 04/25/18 04/25/18 History hydrocodone-acetaminophen 1 tab PO Q4H 04/25/18 04/25/18 History insulin degludec [Tresiba 12 unit SUBCUT DAILY 04/25/18 04/25/18 History FlexTouch U-100] linezolid [Zyvox] 600 mg PO BID 04/25/18 04/25/18 History lisinopril 20 mg PO DAILY 04/25/18 04/25/18 History metoprolol tartrate 25 mg PO BID 04/25/18 04/25/18 History pantoprazole 40 mg PO DAILY 04/25/18 04/25/18 History promethazine 25 mg PO Q6H PRN 04/25/18 04/25/18 History tamsulosin 0.4 mg PO DAILY 04/25/18 04/25/18 History Physical Exam Vital signs: Vital Signs 04/25/18 21:30 04/25/18 22:20 04/25/18 23:12 Temperature Pulse Rate 68 Respiratory Rate 16 16 Blood Pressure 178/79 H Pulse Oximetry 97 98 04/25/18 23:44 04/26/18 01:21 04/26/18 01:27 Temperature Pulse Rate 70 68 71 Respiratory Rate 16 16 Blood Pressure 198/91 H 202/91 H 178/79 H Pulse Oximetry 98 98 04/26/18 01:32 04/26/18 01:37 04/26/18 01:42 Temperature Pulse Rate 70 72 72 Respiratory Rate 18 18 Blood Pressure 161/72 H 154/59 H 146/65 H Pulse Oximetry 97 97 04/26/18 01:47 04/26/18 01:52 04/26/18 03:58 Temperature 98.5 F Pulse Rate 70 70 76 Respiratory Rate 17 Blood Pressure 139/65 141/62 H 190/90 H Pulse Oximetry 96 04/26/18 08:00 04/26/18 11:15 04/26/18 12:00 Temperature 98.1 F 97.9 F 98.1 F Pulse Rate 84 58 L 84 Respiratory Rate 20 20 20 Blood Pressure 146/73 H 159/74 H 154/73 H Pulse Oximetry 98 98 98 Intake & Output 04/25/18 04/26/18 04/26/18 18:59 06:59 18:59 Intake Total 1000 / 1000 1000 / 1000 Balance 1000 / 1000 1000 / 1000 Weight 92.986 kg 92.98 kg Intake: IV 1000 / 1000 1000 / 1000 NS Inj 1,000 ML @ 100 mls/hr IV 1000 / 1000 .CONT .Q10H [facility] Rx#:[id number] NS Inj 1,000 ML @ Wide Open IV. 1000 / 1000 SIG BOLUS ONE Rx#:[id number] Other: # Voids 1 Date of Last Bowel Movement 04/26/18 04/26/18 Weight On Admission 92.98 kg Narrative: Right foot sensation to light touch absent, brisk capillary refill to digits, minimal edema. No purulence. No malodor. There is a granular wound over medial/plantar 1st metatarsophalangeal joint area with central necrotic tissue of medial 1st MTP joint capsule present 1cm x 1cm area. Entire wound measures 4 x 3.2 x 0.5cm. Results - Labs CBC & Chem 7: 04/26/18 05:25 04/26/18 05:25 Laboratory Results - last 24 hr 04/25/18 04/25/18 04/25/18 21:44 21:44 21:44 WBC 6.5 RBC 2.99 L Hgb 8.7 L Hct 24.5 L MCV 82.1 MCH 28.9 MCHC 35.3 RDW 15.5 Plt Count 121 L MPV 8.1 Neut % (Auto) 65.1 Lymph % (Auto) 17.6 [place] % (Auto) 13.5 H Eos % (Auto) 3.3 Baso % (Auto) 0.5 Neut # (Auto) 4.2 Lymph # (Auto) 1.1 [place] # (Auto) 0.9 Eos # (Auto) 0.2 Baso # (Auto) 0.0 WBC Differential . Differential Comment Auto diff final PT 10.8 INR 1.1 APTT 26.8 Sodium 138 Potassium 4.7 Chloride 104 Carbon Dioxide 26.1 Anion Gap 8 BUN 28 H Creatinine 1.70 H Estimated GFR 41 L POC Glucose Random Glucose 314 H Calcium 8.4 L Total Bilirubin 0.3 AST 14 L ALT 20 Alkaline Phosphatase 84 Total Protein 6.8 Albumin 3.2 L Blood Type Antibody Screen 04/25/18 04/26/18 04/26/18 21:44 05:25 05:25 WBC 7.2 RBC 2.86 L Hgb 8.3 L Hct 23.4 L MCV 82.0 MCH 29.0 MCHC 35.4 RDW 15.4 Plt Count 108 L MPV 8.1 Neut % (Auto) 72.0 H Lymph % (Auto) 12.7 [place] % (Auto) 11.9 H Eos % (Auto) 2.5 Baso % (Auto) 0.9 Neut # (Auto) 5.2 Lymph # (Auto) 0.9 L [place] # (Auto) 0.9 Eos # (Auto) 0.2 Baso # (Auto) 0.1 WBC Differential . Differential Comment Auto diff final PT INR APTT Sodium 140 Potassium 4.2 Chloride 107 Carbon Dioxide 24.5 Anion Gap 9 BUN 28 H Creatinine 1.56 H Estimated GFR 45 L POC Glucose Random Glucose 242 H Calcium 8.0 L Total Bilirubin AST ALT Alkaline Phosphatase Total Protein Albumin Blood Type O Positive Antibody Screen Negative 04/26/18 04/26/18 08:12 12:49 WBC RBC Hgb Hct MCV MCH MCHC RDW Plt Count MPV Neut % (Auto) Lymph % (Auto) [place] % (Auto) Eos % (Auto) Baso % (Auto) Neut # (Auto) Lymph # (Auto) [place] # (Auto) Eos # (Auto) Baso # (Auto) WBC Differential Differential Comment PT INR APTT Sodium Potassium Chloride Carbon Dioxide Anion Gap BUN Creatinine Estimated GFR POC Glucose 253 H 139 H Random Glucose Calcium Total Bilirubin AST ALT Alkaline Phosphatase Total Protein Albumin Blood Type Antibody Screen - Imaging Impressions Chest X-Ray 04/25/18 21:11 CONCLUSION: No infiltrates seen. Foot X-Ray 04/25/18 21:11 CONCLUSION: Bony erosive changes at the distal medial aspect of the first metatarsal and probably the medial sesamoid at the MTP most characteristic of osteomyelitis with overlying soft tissue swelling. There is periarticular osteopenia in the right foot as well. Assessment and Plan - Plan Osteomyelitis, diabetic foot infection right foot. Plan: To OR for irrigation and debridement of wound right foot with bone biopsy right foot Continue wound vac until bone biopsy results are in. Plan is for further surgery early next week when bone biopsy results are in NPO
--- NOTE | 2018-04-26 16:41 | P.BOP ---
- Preoperative Diagnosis (1) Diabetic infection of right foot (2) Osteomyelitis of right foot - Postoperative Diagnosis (1) Diabetic infection of right foot (2) Osteomyelitis of right foot Date of procedure: 04/26/18 Procedure: 1. Irrigation and debridement of ulcer/bone right foot 2. bone biopsy right foot Right foot sensation to light touch absent, brisk capillary refill to digits, minimal edema. No purulence. No malodor. There is a granular wound over medial/plantar 1st metatarsophalangeal joint area with central necrotic tissue of medial 1st MTP joint capsule present 1cm x 1cm area. Entire wound measures 4 x 3.2 x 0.5cm. Necrotic tissue debrided excisionally with #15 blade and sent for culture. Bone removed from underlying medial eminence of 1st metatarsal head and sent for culture. More bone from the same area was removed and sent as biopsy to pathology. Excisional debridement of the remainder of the wound of fibrotic tissue with # 15 blade down to healthy bleeding granular tissue. No tourniquet utilized. Small granufoam wound vac applied. Maintain at 125mmHg medium continuous setting. DISPOSITION: Nonweightbearing right foot Await bone biopsy to determine further surgery Plan for further surgery early next week with Dr Layne Anesthesia: GETA, local (10mL 0.5% marcaine plain) Surgeon: Ofelia Layne DPM Leather Dresser: staff Estimated blood loss (mL): 10 Pathology: other (1) culture tissue right foot, 2) culture bone right 1st metatarsal head, 3) bone biopsy right 1st metatarsal head) Condition: stable Disposition: PACU
[2018-04-26] MEDS ORDERED: fentaNYL Citrate Inj 100 MCG/2 ML Ampul ONE (16:51)
[2018-04-27] MEDS: Sod Chloride 0.9% Inj 1,000 ML IV.CONT SCH ×2 (01:25→13:16)
[2018-04-27] MEDS: amLODIPine 5 MG Tablet PO SCH ×4 (05:45→22:57)
[2018-04-27 08:30] LABS: Hemoglobin 8.2 gm/dL (13.0-17.0); Mean Corpuscular Hemoglobin 28.5 pg (27.0-34.0); Mean Corpuscular Volume 83.9 fL (80.0-100.0); Mean Platelet Volume 7.9 fL (7.0-11.0); Platelet Count 118 th/mm3 (150-450); Red Blood Count 2.86 mil/mm3 (4.50-5.90); Red Cell Distribution Width 16.2 % (11.6-17.2); White Blood Count 6.3 th/mm3 (4.0-11.0)
[2018-04-27 08:52] LABS: Calcium 7.9 mg/dL (8.5-10.1); Carbon Dioxide 25.6 meq/L (21.0-32.0); Potassium 4.3 meq/L (3.5-5.1)
[2018-04-27] MEDS: Furosemide 20 MG Tablet PO SCH (08:59)
[2018-04-27] MEDS: Lisinopril 20 MG Tablet PO SCH (08:59)
[2018-04-27] MEDS: Metoprolol Tartrate 25 MG Tablet PO SCH ×2 (09:00→22:57)
[2018-04-27] MEDS: Insulin NovoLOG Aspart Correctional Sugar Inj SQ SCH ×4 (09:00→22:58)
[2018-04-27] MEDS ORDERED: Vancomycin Consult Pharmacy OTHER PRN (09:00)
[2018-04-27] MEDS: Finasteride 5 MG Tablet PO SCH (09:00)
[2018-04-27] MEDS: Baclofen 10 MG Tablet PO SCH ×3 (09:00→17:43)
[2018-04-27] MEDS ORDERED: Insulin Detemir Inj 1,000 UNIT/10 ML Vial SQ SCH ×2 (09:00→18:05)
[2018-04-27] MEDS: Sodium Chloride 0.9% 2 ML Flush BID IV.FLUSH SCH ×3 (10:44→22:58)
[2018-04-27] MEDS ORDERED: Vancomycin Inj 1,500 MG in Sodium Chlor 0.9% Inj 500 ML IV.SIG SCH (12:00)
--- NOTE | 2018-04-27 14:54 | P.PNPOD ---
Subjective Interval history: s/p Right foot bone biopsy and VAC application DOS 04/26/18, Dr Layne Surgical site is doing excellent. No Pain. Concerted about his PICC line. Physical Exam Vital signs: Vital Signs 04/26/18 16:42 04/26/18 16:45 04/26/18 17:00 Temperature 97.4 F L Pulse Rate 68 66 65 Respiratory Rate 20 12 13 Blood Pressure 119/62 119/61 132/68 Pulse Oximetry 97 98 98 04/26/18 17:15 04/26/18 17:25 04/26/18 17:30 Temperature 98.4 F Pulse Rate 65 65 Respiratory Rate 14 16 Blood Pressure 159/71 H 158/75 H Pulse Oximetry 99 99 100 04/26/18 17:39 04/26/18 20:00 04/27/18 00:00 Temperature 97.8 F 97.3 F L 98.2 F Pulse Rate 65 68 71 Respiratory Rate 20 20 18 Blood Pressure 179/78 H 153/72 H 179/84 H Pulse Oximetry 100 99 95 04/27/18 04:00 04/27/18 08:00 04/27/18 11:59 Temperature 97.3 F L 98 F 98.7 F Pulse Rate 65 60 59 L Respiratory Rate 20 18 20 Blood Pressure 178/81 H 149/71 H 176/84 H Pulse Oximetry 97 96 100 Intake & Output 04/26/18 04/27/18 04/27/18 18:59 06:59 18:59 Intake Total 3050 / 3050 1000 / 1000 Output Total 20 / 20 Balance 3030 / 3030 1000 / 1000 Weight 89.4 kg Intake: IV 1999 1000 / 1000 NS Inj 1,000 ML @ 100 mls/hr IV 1999 1000 / 1000 .CONT .Q10H JENNIFER Rx#:[id number] Oral 300 / 300 Other 750 / 750 Output: Estimated Blood Loss Wound Vac Amount Right Posterior Foot Other: Mode Setting Right Posterior Foot Continuous Other Intake Source Saline Solution # Voids 2 1 # Incontinent Voids 1 Date of Last Bowel Movement 04/26/18 04/27/18 # Bowel Movements 1 Narrative: RLE Dressing intact and no strikethrough Minimal drainage in the VAC NVS unchanged. Medications and Allergies Active Medications: Active Medications Acetaminophen (Tylenol) 650 mg PO Q4H PRN PRN Reason: Temp > 100.4 Hydrocodone Bitart/Acetaminophen ([place] 10/325) 1 tab PO Q4H PRN PRN Reason: pain>4 Amlodipine Besylate (Norvasc) 5 mg PO DAILY@0600 [facility] Last Admin: 04/27/18 07:36 Dose: Not Given Atorvastatin Calcium (Lipitor) 40 mg PO DAILY [facility] Last Admin: 04/27/18 08:59 Dose: 40 mg Baclofen (Lioresal) 10 mg PO TID [facility] Last Admin: 04/27/18 13:11 Dose: 10 mg Bisacodyl (Dulcolax Supp) 10 mg RECTAL DAILY PRN PRN Reason: SEVERE CONSITIPATION Dextrose (D50w Vial) 50 ml IV.PUSH UNSCH PRN PRN Reason: PER HYPOGLYCEMIA PROTOCOL Enalaprilat (Vasotec Inj) 1.25 mg IV.PUSH Q6H PRN PRN Reason: SBP> 165 or DBP> 90 Last Admin: 04/27/18 06:40 Dose: 1.25 mg Finasteride (Proscar) 5 mg PO DAILY [facility] Last Admin: 04/27/18 09:00 Dose: 5 mg Furosemide (Lasix) 20 mg PO DAILY [facility] Last Admin: 04/27/18 08:59 Dose: 20 mg Glucagon (Glucagon Inj) 1 mg OTHER PRN PRN PRN Reason: for Hypoglycemia Protocol Sodium Chloride (Ns Inj) 1,000 mls @ 100 mls/hr IV.CONT .Q10H [facility] Last Admin: 04/27/18 13:16 Dose: 75 mls/hr Vancomycin HCl 1,500 mg/ (Sodium Chloride) 515 mls @ 250 mls/hr IV.SIG Q18H [facility] Last Admin: 04/27/18 13:08 Dose: 250 mls/hr Insulin Aspart (Novolog Insulin Correctional Sugar Inj) 0 unit SQ ACHS [facility]; Protocol Last Admin: 04/27/18 13:52 Dose: 3 unit Insulin Detemir (Levemir Inj) 12 unit SQ DAILY [facility] Last Admin: 04/27/18 09:01 Dose: 12 unit Lisinopril (Prinivil) 20 mg PO DAILY [facility] Last Admin: 04/27/18 08:59 Dose: 20 mg Metoprolol Tartrate (Lopressor) 25 mg PO BID [facility] Last Admin: 04/27/18 09:00 Dose: 25 mg Miscellaneous Information ([facility] Nursing Information) 1 each OTHER UNSCH PRN PRN Reason: SEE LABEL COMMENTS Stop: 04/27/18 16:42 Miscellaneous Information ([facility] Ordered Lab Info) 0 each OTHER ONCE ONE Stop: 04/29/18 17:46 Pantoprazole Sodium (Protonix) 40 mg PO DAILY [facility] Last Admin: 04/27/18 08:59 Dose: 40 mg Pharmacy Profile Note (Vancomycin Consult Pharmacy) 1 each OTHER UNSCH PRN PRN Reason: Pharmacy to dose Promethazine HCl (Phenergan) 25 mg PO Q6H PRN PRN Reason: Nausea Last Admin: 04/26/18 05:19 Dose: 25 mg Sennosides (Senokot) 17.2 mg PO Q12H PRN PRN Reason: Moderate Constipation Sodium Chloride (Ns Flush) 2 ml IV.FLUSH BID [facility] Last Admin: 04/27/18 10:44 Dose: Not Given Sodium Chloride (Ns Flush) 2 ml IV.FLUSH PRN PRN PRN Reason: FLUSH AFTER USING IV ACCESS Tamsulosin HCl (Flomax) 0.4 mg PO DAILY [facility] Last Admin: 04/27/18 09:00 Dose: 0.4 mg Zolpidem Tartrate (Ambien) 5 mg PO HS PRN PRN Reason: INSOMNIA Allergies Allergy/AdvReac Type Severity Reaction Status Date / Time bee venom protein (honey bee) Allergy Anaphylaxis Verified 04/25/18 16:15 Home Medications Medication Instructions Recorded Confirmed Type amlodipine 5 mg PO DAILY 04/25/18 04/25/18 History aspirin 81 mg PO DAILY 04/25/18 04/25/18 History atorvastatin 40 mg PO DAILY 04/25/18 04/25/18 History baclofen 10 mg PO TID 04/25/18 04/25/18 History finasteride 5 mg PO DAILY 04/25/18 04/25/18 History furosemide 20 mg PO DAILY 04/25/18 04/25/18 History hydrocodone-acetaminophen 1 tab PO Q4H 04/25/18 04/25/18 History insulin degludec [Tresiba 12 unit SUBCUT DAILY 04/25/18 04/25/18 History FlexTouch U-100] linezolid [Zyvox] 600 mg PO BID 04/25/18 04/25/18 History lisinopril 20 mg PO DAILY 04/25/18 04/25/18 History metoprolol tartrate 25 mg PO BID 04/25/18 04/25/18 History pantoprazole 40 mg PO DAILY 04/25/18 04/25/18 History promethazine 25 mg PO Q6H PRN 04/25/18 04/25/18 History tamsulosin 0.4 mg PO DAILY 04/25/18 04/25/18 History Results - Labs CBC & Chem 7: 04/27/18 07:42 04/27/18 07:42 Laboratory Results - last 24 hr 04/26/18 04/26/18 04/26/18 16:46 19:10 19:10 WBC RBC Hgb Hct MCV MCH MCHC RDW Plt Count MPV ESR 45 H Sodium Potassium Chloride Carbon Dioxide Anion Gap BUN Creatinine Estimated GFR POC Glucose 127 H Random Glucose Calcium C-Reactive Protein 0.58 H 04/26/18 04/27/18 04/27/18 21:06 07:40 07:42 WBC 6.3 RBC 2.86 L Hgb 8.2 L Hct 24.0 L MCV 83.9 MCH 28.5 MCHC 34.0 RDW 16.2 Plt Count 118 L MPV 7.9 ESR Sodium Potassium Chloride Carbon Dioxide Anion Gap BUN Creatinine Estimated GFR POC Glucose 202 H 196 H Random Glucose Calcium C-Reactive Protein 04/27/18 04/27/18 07:42 13:19 WBC RBC Hgb Hct MCV MCH MCHC RDW Plt Count MPV ESR Sodium 143 Potassium 4.3 Chloride 109 H Carbon Dioxide 25.6 Anion Gap 8 BUN 22 H Creatinine 1.43 H Estimated GFR 50 L POC Glucose 232 H Random Glucose 173 H Calcium 7.9 L C-Reactive Protein Microbiology 04/26/18 16:15 Tissue - Foot Gram Stain - Final 04/26/18 16:15 Tissue - Foot Wound Culture - Preliminary gram negative rods 04/26/18 16:15 Tissue - Foot Fungal Smear - Final No fungal elements seen 04/26/18 16:15 Tissue - Other Gram Stain - Final 04/26/18 16:15 Tissue - Other Wound Culture - Preliminary No growth in 24 hours 04/26/18 16:15 Other Fungal Smear - Final No fungal elements seen 04/26/18 05:20 Blood - Peripheral Aerobic Blood Culture - Preliminary No growth in 1 day 04/26/18 05:20 Blood - Peripheral Anaerobic Blood Culture - Preliminary No growth in 1 day 04/26/18 05:25 Blood - Peripheral Aerobic Blood Culture - Preliminary No growth in 1 day 04/26/18 05:25 Blood - Peripheral Anaerobic Blood Culture - Preliminary No growth in 1 day Assessment and Plan - Assessment (1) Diabetic infection of right foot Code(s): E11.628 - Type 2 diabetes mellitus with other skin complications; L08.9 - Local infection of the skin and subcutaneous tissue, unspecified Status: Acute (2) Osteomyelitis of right foot Code(s): M86.9 - Osteomyelitis, unspecified Status: Acute - Plan Pending bone biopsy Continue with [facility] Dr Layne will re-evaluate on 04/29/18
[2018-04-27] MEDS ORDERED: Cathflo Activase Inj 2 MG Vial I-CATHETER ONE (16:58)
--- NOTE | 2018-04-27 17:00 | P.PNIM ---
Subjective Interval history: Reports no significant pain. Reports nursing staff is unable to draw labs from his PICC line. No fever or chills. Physical Exam Vital signs: Last Vital Signs Temp 97.9 F 04/27/18 16:00 Pulse 59 L 04/27/18 16:00 Resp 18 04/27/18 16:00 BP 159/74 H 04/27/18 16:00 Pulse Ox 98 04/27/18 16:00 Intake & Output 04/25/18 04/26/18 04/27/18 04/28/18 06:59 06:59 06:59 06:59 Intake Total 1000 / 1000 3050 / 3050 1600 / 1600 Output Total 20 / 20 Balance 1000 / 1000 3030 / 3030 1600 / 1600 Weight 92.98 kg 89.4 kg Narrative: Gen.: Well-nourished well-developed white male no acute distress Respiratory: Lungs clear to auscultation bilaterally. No wheezes or rhonchi. Abdomen: Soft, nontender, nondistended. No peritoneal signs. Musculoskeletal: No gross deformities. Bilateral lower extremities with pretibial edema, right leg greater than left. Skin: Right foot wound, dressed. Dressing clean/dry/intact. Neuro: Awake, alert oriented x3. No focal deficits Results Labs CBC & Chem 7: 04/27/18 07:42 04/27/18 07:42 Labs: Microbiology 04/26/18 16:15 Tissue - Foot Gram Stain - Final 04/26/18 16:15 Tissue - Foot Wound Culture - Preliminary gram negative rods 04/26/18 16:15 Tissue - Foot Fungal Smear - Final No fungal elements seen 04/26/18 16:15 Tissue - Other Gram Stain - Final 04/26/18 16:15 Tissue - Other Wound Culture - Preliminary No growth in 24 hours 04/26/18 16:15 Other Fungal Smear - Final No fungal elements seen 04/26/18 05:20 Blood - Peripheral Aerobic Blood Culture - Preliminary No growth in 1 day 04/26/18 05:20 Blood - Peripheral Anaerobic Blood Culture - Preliminary No growth in 1 day 04/26/18 05:25 Blood - Peripheral Aerobic Blood Culture - Preliminary No growth in 1 day 04/26/18 05:25 Blood - Peripheral Anaerobic Blood Culture - Preliminary No growth in 1 day Assessment and Plan (1) Diabetic infection of right foot: Code(s): E11.628 - Type 2 diabetes mellitus with other skin complications; L08.9 - Local infection of the skin and subcutaneous tissue, unspecified Status: Acute (2) Osteomyelitis of right foot: Code(s): M86.9 - Osteomyelitis, unspecified Status: Acute Plan 63-year-old male with past medical history significant for hypertension, diabetes mellitus, coronary artery disease and hyperlipidemia presents to the emergency department for a scheduled bone biopsy of his right foot with Dr. Layne. 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 Patient's ID provider Dr. Betancur has stopped his Zyvox 5 days ago and requested a bone biopsy. results pending. -Podiatry consulted, appreciate assistance Coronary artery disease Status post CABG -resume aspirin, continue BB Diabetes mellitus, type II, Uncontrolled, insulin dependent with nephropathy Blood glucose elevated -Sliding-scale insulin -increase Levemir to 20 units SQ daily Hypertension/hyperlipidemia -Continue Prinivil, Lopressor, Lasix, Norvasc -continue Lipitor CKD (stage III) -Monitor renal function -avoid nephrotoxic agents History of prosthetic valve replacement -Had recent echo -stable, continue medical management Hx of urinary retention -continue Flomax. Anemia, chronic Likely due to CKD -monitor HH DVT prophylaxis Lovenox Progress Note: Quality VTE Deep Vein Thrombosis/Pulmonary Embolism Present on Admission: No _ (1) Osteomyelitis of right foot Qualifiers: Osteomyelitis type:
--- NOTE | 2018-04-27 21:18 | P.CONPSY ---
Provisional Diagnosis Admission Date: April 26, 2018 02:05 [place] I.: Adjustment disorder History of Present Illness Service: psychiatry Consult date: 04/27/18 Reason for Consult: Evaluate for depression or anxiety Primary Care Provider: PROVIDER NON STAFF Chief Complaint: "frustration" History of Present Illness: Pt is a 63 YOWM who with hx of DM, HTN who was admitted for bone biopsy of foot. Staff report that he has been at times irritable but no agitation or aggression. of 45 years is present at bedside. Pt states that he is frustrated because he feels that primary team is not listening to him or his input. He states that this started at admission when instead of a direct admit like ordered, he was sent to wait for hours in ED. He states that this situation has been hard because his is anxious and that makes him stressed out. He denies depression or anxiety symptoms. He states that today, Dr. Gupta spent 30 minutes with him and he felt heard and trusts her judgment. He states physical therapy session also went well and he has been more pleased with care. He states that he is a glass half-full person and survived open heart surgery, but has been surprised how difficult this illness has been. He states that he now feels that he has a good handle on his treatment plan and he is going to "fight this with everything I have." He denies hx of depression or anxiety. No hx of psychiatric medications or treatment. He denies any symptoms of depression. states that pt has encouraged her to go to [facility] and take time away from bedside in order to prevent burnout. He reports that he has a good support system. No SI/HI. No psychosis or hx of junior. [facility] - History History Provided By: Patient - Medical History Medical History: Medical History (Last Reviewed 04/27/18 @ 06:46 by Marvin Mcfadden) Coronary artery disease Diabetes mellitus Hypertension - Surgical History Surgical History: Surgical History (Last Reviewed 04/27/18 @ 06:46 by Marvin Mcfadden) Aortic valve replaced History of foot surgery S/P CABG x 3 - Family History Family History: Family History (Last Updated 04/26/18 @ 04:56 by Gabby Bellamy MD) Other Coronary artery disease Diabetes mellitus - Tobacco History Second Hand Smoke Exposure: No Smoking Status: Never smoker - Alcohol History How Often Do You Have a Drink Containing Alcohol: Never - Substance Use History Substance History: No History of Abuse - Travel History Recent Travel in the [place] Within the Last 8 Weeks: No Recent Travel Out of the Country Within the Last 8 Weeks: No - Immunization History Tetanus Immunization: Unsure Medications and Allergies Active Medications: Active Medications Acetaminophen (Tylenol) 650 mg PO Q4H PRN PRN Reason: Temp > 100.4 Hydrocodone Bitart/Acetaminophen ([place] 10/325) 1 tab PO Q4H PRN PRN Reason: pain>4 Amlodipine Besylate (Norvasc) 5 mg PO BID [facility] Aspirin (Aspirin Chew) 81 mg PO DAILY [facility] Atorvastatin Calcium (Lipitor) 40 mg PO DAILY [facility] Last Admin: 04/27/18 08:59 Dose: 40 mg Baclofen (Lioresal) 10 mg PO TID [facility] Last Admin: 04/27/18 17:43 Dose: 10 mg Bisacodyl (Dulcolax Supp) 10 mg RECTAL DAILY PRN PRN Reason: SEVERE CONSITIPATION Dextrose (D50w Vial) 50 ml IV.PUSH UNSCH PRN PRN Reason: PER HYPOGLYCEMIA PROTOCOL Enalaprilat (Vasotec Inj) 1.25 mg IV.PUSH Q6H PRN PRN Reason: SBP> 165 or DBP> 90 Last Admin: 04/27/18 06:40 Dose: 1.25 mg Enoxaparin Sodium (Lovenox Inj) 40 mg SQ Q24H [facility] Finasteride (Proscar) 5 mg PO DAILY [facility] Last Admin: 04/27/18 09:00 Dose: 5 mg Furosemide (Lasix) 20 mg PO DAILY [facility] Last Admin: 04/27/18 08:59 Dose: 20 mg Glucagon (Glucagon Inj) 1 mg OTHER PRN PRN PRN Reason: for Hypoglycemia Protocol Insulin Aspart (Novolog Insulin Correctional Sugar Inj) 0 unit SQ ACHS [facility]; Protocol Last Admin: 04/27/18 17:39 Dose: 3 unit Insulin Detemir (Levemir Inj) 20 unit SQ DAILY [facility] Lisinopril (Prinivil) 20 mg PO DAILY [facility] Last Admin: 04/27/18 08:59 Dose: 20 mg Metoprolol Tartrate (Lopressor) 25 mg PO BID [facility] Last Admin: 04/27/18 09:00 Dose: 25 mg Miscellaneous Information ([facility] Ordered Lab Info) 0 each OTHER ONCE ONE Stop: 04/29/18 17:46 Pantoprazole Sodium (Protonix) 40 mg PO DAILY [facility] Last Admin: 04/27/18 08:59 Dose: 40 mg Promethazine HCl (Phenergan) 25 mg PO Q6H PRN PRN Reason: Nausea Last Admin: 04/26/18 05:19 Dose: 25 mg Sennosides (Senokot) 17.2 mg PO Q12H PRN PRN Reason: Moderate Constipation Sodium Chloride (Ns Flush) 2 ml IV.FLUSH BID [facility] Last Admin: 04/27/18 10:44 Dose: Not Given Sodium Chloride (Ns Flush) 2 ml IV.FLUSH PRN PRN PRN Reason: FLUSH AFTER USING IV ACCESS Tamsulosin HCl (Flomax) 0.4 mg PO DAILY [facility] Last Admin: 04/27/18 09:00 Dose: 0.4 mg Zolpidem Tartrate (Ambien) 5 mg PO HS PRN PRN Reason: INSOMNIA Allergies Allergy/AdvReac Type Severity Reaction Status Date / Time bee venom protein (honey bee) Allergy Anaphylaxis Verified 04/25/18 16:15 Home Medications Medication Instructions Recorded Confirmed Type amlodipine 5 mg PO DAILY 04/25/18 04/25/18 History aspirin 81 mg PO DAILY 04/25/18 04/25/18 History atorvastatin 40 mg PO DAILY 04/25/18 04/25/18 History baclofen 10 mg PO TID 04/25/18 04/25/18 History finasteride 5 mg PO DAILY 04/25/18 04/25/18 History furosemide 20 mg PO DAILY 04/25/18 04/25/18 History hydrocodone-acetaminophen 1 tab PO Q4H 04/25/18 04/25/18 History insulin degludec [Tresiba 12 unit SUBCUT DAILY 04/25/18 04/25/18 History FlexTouch U-100] linezolid [Zyvox] 600 mg PO BID 04/25/18 04/25/18 History lisinopril 20 mg PO DAILY 04/25/18 04/25/18 History metoprolol tartrate 25 mg PO BID 04/25/18 04/25/18 History pantoprazole 40 mg PO DAILY 04/25/18 04/25/18 History promethazine 25 mg PO Q6H PRN 04/25/18 04/25/18 History tamsulosin 0.4 mg PO DAILY 04/25/18 04/25/18 History Exam Vital signs: Vital Signs 04/27/18 00:00 04/27/18 04:00 04/27/18 08:00 Temperature 98.2 F 97.3 F L 98 F Pulse Rate 71 65 60 Respiratory Rate 18 20 18 Blood Pressure 179/84 H 178/81 H 149/71 H Pulse Oximetry 95 97 96 04/27/18 11:59 04/27/18 16:00 04/27/18 20:00 Temperature 98.7 F 97.9 F 97.3 F L Pulse Rate 59 L 59 L 64 Respiratory Rate 20 18 18 Blood Pressure 176/84 H 159/74 H 177/79 H Pulse Oximetry 100 98 96 Intake & Output 04/27/18 04/27/18 04/28/18 06:59 18:59 06:59 Intake Total 1600 / 1600 Balance 1600 / 1600 Weight 89.4 kg Intake: IV 1000 / 1000 NS Inj 1,000 ML @ 100 mls/hr IV 1000 / 1000 .CONT .Q10H JENNIFER Rx#:[id number] Oral 600 / 600 Other: # Voids 1 # Incontinent Voids 1 Date of Last Bowel Movement 04/27/18 04/27/18 # Bowel Movements 1 Mental Status Examination Appearance: Appropriate Consciousness: Alert Orientation: x4 Motor Activity: Other (lying in hospital) Speech: Unremarkable Language: Adequate Fund of Knowledge: Adequate Attention and Concentration: Adequate Memory: Unremarkable Mood: Appropriate Affect: Appropriate Thought Process & Associations: Intact Thought Content: Appropriate Hallucination Type: None Delusion Type: None Suicidal Ideation: No Suicidal Plan: No Suicidal Intention: No Homicidal Ideation: No Homicidal Plan: No Homicidal Intention: No Insight: Adequate Judgment: Adequate Assessment and Plan - Assessment (1) Adjustment disorder Code(s): F43.20 - Adjustment disorder, unspecified Status: Acute - Plan Plan: Estimated LOS: [] days Recommend clear communication with team about treatment plans. No medications at this time. Pt was given psychoeducation about depression and anxiety risks with chronic illness and was instructed to monitor mood and notify team if symptoms occur. Justification for Continued Inpatient Stay: complicating medical conditions
[2018-04-27] MEDS: Enoxaparin Inj 40 MG/0.4 ML Syringe SQ SCH (22:57)
[2018-04-28 05:58] LABS: Baso % (Auto) 0.3 % (0.0-2.0); Eos # (Auto) 0.2 th/mm3 (0.0-0.4); Eos % (Auto) 3.6 % (0.0-4.0); Hematocrit 23.2 % (39.0-51.0); Hemoglobin 8.1 gm/dL (13.0-17.0); Mean Corpuscular HGB Conc 34.8 % (32.0-36.0); Mean Corpuscular Hemoglobin 28.8 pg (27.0-34.0); Mean Corpuscular Volume 82.7 fL (80.0-100.0); Mean Platelet Volume 7.9 fL (7.0-11.0); Mono # (Auto) 0.7 th/mm3 (0.0-0.9); Mono % (Auto) 11.1 % (0.0-8.0); Neut # (Auto) 4.2 th/mm3 (1.8-7.7); Platelet Count 131 th/mm3 (150-450); Red Blood Count 2.81 mil/mm3 (4.50-5.90); Red Cell Distribution Width 16.2 % (11.6-17.2); White Blood Count 6.1 th/mm3 (4.0-11.0)
[2018-04-28 06:18] LABS: Calcium 8.3 mg/dL (8.5-10.1); Carbon Dioxide 27.2 meq/L (21.0-32.0); Potassium 4.4 meq/L (3.5-5.1)
[2018-04-28] MEDS: Sodium Chloride 0.9% 2 ML Flush BID IV.FLUSH SCH ×2 (09:23→22:53)
[2018-04-28] MEDS: Metoprolol Tartrate 25 MG Tablet PO SCH ×2 (09:23→22:53)
[2018-04-28] MEDS: Furosemide 20 MG Tablet PO SCH (09:23)
[2018-04-28] MEDS: Lisinopril 20 MG Tablet PO SCH (09:23)
[2018-04-28] MEDS: amLODIPine 5 MG Tablet PO SCH ×2 (09:23→22:53)
[2018-04-28] MEDS: Finasteride 5 MG Tablet PO SCH (09:24)
[2018-04-28] MEDS: Baclofen 10 MG Tablet PO SCH ×2 (09:24→18:24)
[2018-04-28] MEDS: Insulin NovoLOG Aspart Correctional Sugar Inj SQ SCH ×4 (13:27→22:54)
--- NOTE | 2018-04-28 14:47 | P.PNIM ---
Subjective Interval history: Reports PICC line is finally working wand happy to have the left peripheral IV site reviewed. He is complaining of dry mouth. Reports he would prefer to have the p.o. Phenergan as needed for nausea versus the Zofran. He was taking that at home. He will also like to independently unhooked himself from the wound VAC to go to the restroom independently as he has been educated on this by his previous home health care nursing staff. Physical Exam Vital signs: Last Vital Signs Temp 97.9 F 04/28/18 11:41 Pulse 57 L 04/28/18 11:41 Resp 18 04/28/18 11:41 BP 113/61 04/28/18 11:41 Pulse Ox 98 04/28/18 11:41 Intake & Output 04/26/18 04/27/18 04/28/18 04/29/18 06:59 06:59 06:59 06:59 Intake Total 1000 / 1000 3050 / 3050 1600 / 1600 Output Total 20 / 20 Balance 1000 / 1000 3030 / 3030 1600 / 1600 Weight 92.98 kg 89.4 kg 101.1 kg Narrative: Gen.: Well-nourished well-developed white male no acute distress Respiratory: Lungs clear to auscultation bilaterally. No wheezes or rhonchi. Abdomen: Soft, nontender, nondistended. No peritoneal signs. Musculoskeletal: No gross deformities. Bilateral lower extremities with pretibial edema, right leg greater than left. Skin: Right foot with wound VAC. Neuro: Awake, alert oriented x3. No focal deficits Results Labs CBC & Chem 7: 04/28/18 05:35 04/28/18 05:35 Labs: Microbiology 04/26/18 05:20 Blood - Peripheral Aerobic Blood Culture - Preliminary No growth in 2 days 04/26/18 05:20 Blood - Peripheral Anaerobic Blood Culture - Preliminary No growth in 2 days 04/26/18 05:25 Blood - Peripheral Aerobic Blood Culture - Preliminary No growth in 2 days 04/26/18 05:25 Blood - Peripheral Anaerobic Blood Culture - Preliminary No growth in 2 days 04/26/18 16:15 Tissue - Foot Gram Stain - Final 04/26/18 16:15 Tissue - Foot Wound Culture - Preliminary Pseudomonas aeruginosa Escherichia coli Group D Enterococcus 04/26/18 16:15 Tissue - Foot Fungal Smear - Final No fungal elements seen 04/26/18 16:15 Tissue - Other Gram Stain - Final 04/26/18 16:15 Tissue - Other Wound Culture - Preliminary No growth in 48 hours 04/26/18 16:15 Other Fungal Smear - Final No fungal elements seen Assessment and Plan (1) Adjustment disorder: Code(s): F43.20 - Adjustment disorder, unspecified Status: Acute (2) Osteomyelitis of right foot: Code(s): M86.9 - Osteomyelitis, unspecified Status: Acute (3) Diabetes 1.5, managed as type 2: Code(s): E10.9 - Type 1 diabetes mellitus without complications Status: Chronic (4) CKD stage 3 due to type 2 diabetes mellitus: Code(s): E11.22 - Type 2 diabetes mellitus with diabetic chronic kidney disease; N18.3 - Chronic kidney disease, stage 3 (moderate) Status: Acute Plan 63-year-old male with past medical history significant for hypertension, diabetes mellitus, coronary artery disease and hyperlipidemia presents to the emergency department for a scheduled bone biopsy of his right foot with Dr. Layne. 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 Patient's ID provider Dr. Betancur has stopped his Zyvox 5 days ago and requested a bone biopsy. Preliminary cultures show Pseudomonas, E. coli, group D enterococcus, consideration for ID consult when final cultures are available. -Podiatry consulted, appreciate assistance Coronary artery disease Status post CABG -resume aspirin, continue BB Diabetes mellitus, type II, Uncontrolled, insulin dependent with nephropathy Blood glucose elevated -Sliding-scale insulin -increase Levemir to 25 units SQ daily Hypertension/hyperlipidemia -Continue Prinivil, Lopressor, Lasix, Norvasc, blood pressure labile however better controlled after increasing Norvasc to twice daily. -continue Lipitor CKD (stage III) -Monitor renal function, continues to be stable. -avoid nephrotoxic agents History of prosthetic valve replacement -Had recent echo -stable, continue medical management Hx of urinary retention -continue Flomax. Anemia, chronic Likely due to CKD -monitor HH which has remained stable. DVT prophylaxis Lovenox Progress Note: Quality VTE Deep Vein Thrombosis/Pulmonary Embolism Present on Admission: No _ (1) Adjustment disorder Qualifiers: Adjustment disorder type: (2) Osteomyelitis of right foot Qualifiers: Osteomyelitis type:
[2018-04-28] MEDS ORDERED: Insulin Detemir Inj 1,000 UNIT/10 ML Vial SQ SCH (14:48)
[2018-04-28] MEDS: Enoxaparin Inj 40 MG/0.4 ML Syringe SQ SCH (22:53)
[2018-04-29] MEDS: amLODIPine 5 MG Tablet PO SCH ×2 (08:57→22:25)
[2018-04-29] MEDS: Finasteride 5 MG Tablet PO SCH (08:57)
[2018-04-29] MEDS: Lisinopril 20 MG Tablet PO SCH (08:57)
[2018-04-29] MEDS: Furosemide 20 MG Tablet PO SCH (08:57)
[2018-04-29] MEDS: Insulin Detemir Inj 1,000 UNIT/10 ML Vial SQ SCH (08:58)
[2018-04-29] MEDS: Metoprolol Tartrate 25 MG Tablet PO SCH ×2 (08:58→22:25)
[2018-04-29] MEDS: Sodium Chloride 0.9% 2 ML Flush BID IV.FLUSH SCH ×2 (08:58→22:26)
[2018-04-29] MEDS: Insulin NovoLOG Aspart Correctional Sugar Inj SQ SCH ×4 (08:58→22:26)
--- NOTE | 2018-04-29 13:48 | P.PNIM ---
Subjective Interval history: Reports that his nausea is better. No vomiting. No abdominal pain. States that he had 2 episodes of loose stools and diarrhea. Physical Exam Vital signs: Last Vital Signs Temp 97.9 F 04/29/18 12:00 Pulse 61 04/29/18 12:00 Resp 17 04/29/18 12:00 BP 177/84 H 04/29/18 12:00 Pulse Ox 100 04/29/18 12:00 Intake & Output 04/27/18 04/28/18 04/29/18 04/30/18 06:59 06:59 06:59 06:59 Intake Total 3050 / 3050 1600 / 1600 600 / 600 Output Total Balance 3030 / 3030 1600 / 1600 600 / 600 Weight 89.4 kg 101.1 kg 99.2 kg Narrative: Gen.: Well-nourished well-developed white male no acute distress Respiratory: Lungs clear to auscultation bilaterally. No wheezes or rhonchi. Abdomen: Soft, nontender, nondistended. No peritoneal signs. Normoactive bowel sounds Musculoskeletal: No gross deformities. Bilateral lower extremities with pretibial edema, right leg greater than left. Skin: Right foot with wound VAC. Neuro: Awake, alert oriented x3. No focal deficits Results Labs CBC & Chem 7: 04/28/18 05:35 04/28/18 05:35 Labs: Microbiology 04/26/18 05:20 Blood - Peripheral Aerobic Blood Culture - Preliminary No growth in 3 days 04/26/18 05:20 Blood - Peripheral Anaerobic Blood Culture - Preliminary No growth in 3 days 04/26/18 05:25 Blood - Peripheral Aerobic Blood Culture - Preliminary No growth in 3 days 04/26/18 05:25 Blood - Peripheral Anaerobic Blood Culture - Preliminary No growth in 3 days 04/26/18 16:15 Tissue - Foot Acid Fast Bacilli Smear - Final No acid fast bacilli seen 04/26/18 16:15 Other Acid Fast Bacilli Smear - Final No acid fast bacilli seen 04/26/18 16:15 Tissue - Foot Gram Stain - Final 04/26/18 16:15 Tissue - Foot Wound Culture - Final Pseudomonas aeruginosa Escherichia coli Enterococcus faecium VRE 04/26/18 16:15 Tissue - Other Gram Stain - Final 04/26/18 16:15 Tissue - Other Wound Culture - Final No growth in 72 hours (aerobically and anaerobically ) 04/26/18 16:15 Tissue - Foot Fungal Smear - Final No fungal elements seen Assessment and Plan (1) Adjustment disorder: Code(s): F43.20 - Adjustment disorder, unspecified Status: Acute (2) Osteomyelitis of right foot: Code(s): M86.9 - Osteomyelitis, unspecified Status: Acute (3) Diabetes 1.5, managed as type 2: Code(s): E10.9 - Type 1 diabetes mellitus without complications Status: Chronic (4) CKD stage 3 due to type 2 diabetes mellitus: Code(s): E11.22 - Type 2 diabetes mellitus with diabetic chronic kidney disease; N18.3 - Chronic kidney disease, stage 3 (moderate) Status: Acute Plan 63-year-old male with past medical history significant for hypertension, diabetes mellitus, coronary artery disease and hyperlipidemia presents to the emergency department for a scheduled bone biopsy of his right foot with Dr. Layne. History of Right foot osteomyelitis Hx of incision and drainage of right foot 02/16/2018 and right foot redebridement 02/19 Patient with known MRSA osteomyelitis, admitted at the recommendation of his wire setter for bone biopsy Foot x-ray significant for bony erosive changes at the distal medial aspect of the first metatarsal most characteristic of osteomyelitis -Per podiatry recommendations, holding antibiotics until after bone biopsy completed. Patient's ID provider Dr. Betancur has stopped his Zyvox 5 days ago and requested a bone biopsy. Final cultures from bone biopsy show Pseudomonas, E. coli, enterococcus faecalis VRE, will obtain an infectious disease consultation for further recommendations on antibiotic type and duration needed. Coronary artery disease Status post CABG -resume aspirin, continue BB Diabetes mellitus, type II, Uncontrolled, insulin dependent with nephropathy Blood glucose elevated -Sliding-scale insulin -increase Levemir to 30 units SQ daily Hypertension/hyperlipidemia -Continue Prinivil, Lopressor, Lasix, Norvasc, blood pressure labile We will add hydralazine 10 mg p.o. 3 times daily today -continue Lipitor CKD (stage III) -Monitor renal function, continues to be stable. -avoid nephrotoxic agents History of prosthetic valve replacement -Had recent echo -stable, continue medical management Hx of urinary retention -continue Flomax. Anemia, chronic Likely due to CKD -monitor HH which has remained stable. Diarrhea, initially Lactinex if it persists we will do further workup with C. difficile DVT prophylaxis Jonx Progress Note: Quality VTE Deep Vein Thrombosis/Pulmonary Embolism Present on Admission: No _ (1) Adjustment disorder Qualifiers: Adjustment disorder type: (2) Osteomyelitis of right foot Qualifiers: Osteomyelitis type:
[2018-04-29] MEDS ORDERED: Pharmacy Ordered Lab Info OTHER ONE (17:45)
[2018-04-29] MEDS: hydrALAZINE 10 MG Tablet PO SCH (17:47)
[2018-04-29] MEDS: Lactobacillus Acidophilus/L. Spores Tablet PO SCH (17:47)
--- NOTE | 2018-04-29 20:20 | MB ---
cc: Ramo Lei MD DATE: 04/29/2018 DATE OF CONSULTATION: 04/29/2018 REQUESTING PHYSICIAN: Dr. Gupta. REASON FOR VISIT: History of right foot osteomyelitis with positive cultures. HISTORY OF PRESENT ILLNESS: This is a 63-year-old white male who has had a history of right foot infection, which has been treated with antibiotics for some time. The patient was on IV antibiotics for MRSA with vancomycin and then was changed to Zyvox over the past 10 weeks. He was taken off antibiotics a week ago and saw the rocket engine component mechanic and was sent to the hospital for further evaluation. He presented to the emergency department on 04/25/2018 and plans were to do surgery. He underwent bone biopsy of the right foot first metatarsal head. The result is pending. The patient is awake and alert. His white blood cell count is normal. He has no other complaints. The patient states that he has been evaluated for hyperbaric treatment and plans were to possibly do a graft to cover the skin of the open wound at the left 5th metatarsal region. This consultation is requested for infection management. PAST MEDICAL HISTORY: Diabetes mellitus, hypertension, coronary artery disease, aortic valve replacement 3 years ago. PAST SURGICAL HISTORY: History of foot surgery, coronary artery bypass graft surgery x3. ALLERGIES: BEE VENOM. MEDICATIONS: Flomax, Phenergan, Prinivil, Lopressor, Protonix, insulin, Proscar, Vasotec p.r.n., Lovenox, aspirin, Norvasc, Hammond 10 p.r.n. SOCIAL HISTORY: The patient is . No tobacco, no alcohol, no illicit drugs. FAMILY HISTORY: Noncontributory. REVIEW OF SYSTEMS: Negative on 10-point review. PHYSICAL EXAM: GENERAL: This is a well-developed male who is in no acute distress. He is awake and alert and oriented. VITAL SIGNS: Temperature 97.7, BP 143/69, respirations 18, heart rate 60. HEENT: The head is atraumatic. Extraocular movements are grossly intact. Pupils reactive to light. No icterus. NECK: Supple without adenopathy. LUNGS: Clear to auscultation. HEART: Regular rate and rhythm without murmurs, rubs or gallops. ABDOMEN: Bowel sounds present. Soft. No tenderness. RECTAL: Not performed. EXTREMITIES: Right foot has a surgical dressing in place with a wound VAC, which has serosanguineous drainage at the wound bed. SKIN: No diffuse rash. NEUROLOGIC: No gross focal findings. PSYCHIATRIC: The patient is calm and cooperative. LABORATORY DATA: WBC 6.1, platelets 131, hemoglobin 8.1. Estimated GFR 44, creatinine 1.58, BUN 24. Wound culture has pseudomonas, E. coli and VRE. IMPRESSION: 1. Chronic wound infection of the right foot and possibly osteomyelitis. Bone culture is pending. The plain film of the foot shows changes at the MTP characteristic of osteomyelitis. 2. Diabetes mellitus. RECOMMENDATIONS: 1. Give Zyvox p.o. for the VRE. 2. Give cefepime adjusted for kidney function for pseudomonas and E. coli. 3. Monitor the bone culture. If the bone culture is negative, I would give the patient a 2-week course of antibiotic treatment with these antibiotics and after that he can start hyperbaric treatments. If the bone culture is positive, then he will need a longer course of antibiotics and/or surgical intervention versus further debridement and future hyperbaric treatments. Thank you for this consultation. I will monitor the patient's progress along with you. MD JACOBO Julien/eloisa , 04:31 PM , 04:42 PM
--- NOTE | 2018-04-29 21:06 | P.PNPOD ---
Physical Exam Vital signs: Vital Signs 04/29/18 00:00 04/29/18 04:00 04/29/18 08:00 Temperature 97.9 F 98.0 F 97.7 F Pulse Rate 62 66 61 Respiratory Rate 18 20 18 Blood Pressure 154/80 H 163/73 H 194/86 H Pulse Oximetry 98 96 97 04/29/18 12:00 04/29/18 15:54 04/29/18 16:19 Temperature 97.9 F 97.7 F Pulse Rate 61 60 69 Respiratory Rate 17 18 Blood Pressure 177/84 H 143/69 H Pulse Oximetry 100 100 Intake & Output 04/29/18 04/29/18 04/30/18 06:59 18:59 06:59 Intake Total 1100 / 1100 Balance 1100 / 1100 Weight 99.2 kg Intake: IV 100 / 100 Maxipime Inj 2,000 MG In NS Inj 100 / 100 100 ML @ 200 mls/hr IV.SIG Q12H [facility] Rx#:[id number] Oral 1000 / 1000 Other: # Voids 2 3 Date of Last Bowel Movement 04/27/18 04/29/18 # Bowel Movements 1 Narrative: right foot with wound vac in place Medications and Allergies Active Medications: Active Medications Acetaminophen (Tylenol) 650 mg PO Q4H PRN PRN Reason: Temp > 100.4 Hydrocodone Bitart/Acetaminophen (Maljamar 10/325) 1 tab PO Q4H PRN PRN Reason: pain>4 Amlodipine Besylate (Norvasc) 5 mg PO BID [facility] Last Admin: 04/29/18 08:57 Dose: 5 mg Aspirin (Aspirin Chew) 81 mg PO DAILY [facility] Last Admin: 04/29/18 08:57 Dose: 81 mg Atorvastatin Calcium (Lipitor) 40 mg PO DAILY [facility] Last Admin: 04/29/18 08:58 Dose: 40 mg Bisacodyl (Dulcolax Supp) 10 mg RECTAL DAILY PRN PRN Reason: SEVERE CONSITIPATION Dextrose (D50w Vial) 50 ml IV.PUSH UNSCH PRN PRN Reason: PER HYPOGLYCEMIA PROTOCOL Enalaprilat (Vasotec Inj) 1.25 mg IV.PUSH Q6H PRN PRN Reason: SBP> 165 or DBP> 90 Last Admin: 04/27/18 23:53 Dose: 1.25 mg Enoxaparin Sodium (Lovenox Inj) 40 mg SQ Q24H [facility] Last Admin: 04/28/18 22:53 Dose: 40 mg Finasteride (Proscar) 5 mg PO DAILY [facility] Last Admin: 04/29/18 08:57 Dose: 5 mg Furosemide (Lasix) 20 mg PO DAILY [facility] Last Admin: 04/29/18 08:57 Dose: 20 mg Glucagon (Glucagon Inj) 1 mg OTHER PRN PRN PRN Reason: for Hypoglycemia Protocol Hydralazine HCl (Apresoline) 10 mg PO TID [facility] Last Admin: 04/29/18 17:47 Dose: 10 mg Cefepime HCl 2,000 mg/ Sodium (Chloride) 100 mls @ 200 mls/hr IV.SIG Q12H [facility] Last Infusion: 04/29/18 18:43 Dose: Infused Insulin Aspart (Novolog Insulin Correctional Sugar Inj) 0 unit SQ ACHS [facility]; Protocol Last Admin: 04/29/18 17:47 Dose: 3 unit Insulin Detemir (Levemir Inj) 30 unit SQ DAILY [facility] Last Admin: 04/29/18 08:58 Dose: 30 unit Lactobacillus Acidophilus (Lactinex) 1 tab PO TID [facility] Last Admin: 04/29/18 17:47 Dose: 1 tab Linezolid (Zyvox) 600 mg PO Q12HR [facility] Lisinopril (Prinivil) 20 mg PO DAILY [facility] Last Admin: 04/29/18 08:57 Dose: 20 mg Metoprolol Tartrate (Lopressor) 25 mg PO BID [facility] Last Admin: 04/29/18 08:58 Dose: 25 mg Pantoprazole Sodium (Protonix) 40 mg PO DAILY [facility] Last Admin: 04/29/18 08:58 Dose: 40 mg Promethazine HCl (Phenergan) 25 mg PO Q6H PRN PRN Reason: Nausea Last Admin: 04/28/18 09:34 Dose: 25 mg Sennosides (Senokot) 17.2 mg PO Q12H PRN PRN Reason: Moderate Constipation Sodium Chloride (Ns Flush) 2 ml IV.FLUSH BID [facility] Last Admin: 04/29/18 08:58 Dose: 2 ml Sodium Chloride (Ns Flush) 2 ml IV.FLUSH PRN PRN PRN Reason: FLUSH AFTER USING IV ACCESS Tamsulosin HCl (Flomax) 0.4 mg PO DAILY [facility] Last Admin: 04/29/18 08:57 Dose: 0.4 mg Zolpidem Tartrate (Ambien) 5 mg PO HS PRN PRN Reason: INSOMNIA Allergies Allergy/AdvReac Type Severity Reaction Status Date / Time bee venom protein (honey bee) Allergy Anaphylaxis Verified 04/25/18 16:15 Home Medications Medication Instructions Recorded Confirmed Type amlodipine 5 mg PO DAILY 04/25/18 04/25/18 History aspirin 81 mg PO DAILY 04/25/18 04/25/18 History atorvastatin 40 mg PO DAILY 04/25/18 04/25/18 History baclofen 10 mg PO TID 04/25/18 04/25/18 History finasteride 5 mg PO DAILY 04/25/18 04/25/18 History furosemide 20 mg PO DAILY 04/25/18 04/25/18 History hydrocodone-acetaminophen 1 tab PO Q4H 04/25/18 04/25/18 History insulin degludec [Tresiba 12 unit SUBCUT DAILY 04/25/18 04/25/18 History FlexTouch U-100] linezolid [Zyvox] 600 mg PO BID 04/25/18 04/25/18 History lisinopril 20 mg PO DAILY 04/25/18 04/25/18 History metoprolol tartrate 25 mg PO BID 04/25/18 04/25/18 History pantoprazole 40 mg PO DAILY 04/25/18 04/25/18 History promethazine 25 mg PO Q6H PRN 04/25/18 04/25/18 History tamsulosin 0.4 mg PO DAILY 04/25/18 04/25/18 History Results - Labs CBC & Chem 7: 04/28/18 05:35 04/28/18 05:35 Laboratory Results - last 24 hr 04/28/18 04/29/18 04/29/18 21:22 07:45 11:38 POC Glucose 243 H 169 H 215 H 04/29/18 04/29/18 16:46 20:45 POC Glucose 211 H 246 H Microbiology 04/26/18 05:20 Blood - Peripheral Aerobic Blood Culture - Preliminary No growth in 3 days 04/26/18 05:20 Blood - Peripheral Anaerobic Blood Culture - Preliminary No growth in 3 days 04/26/18 05:25 Blood - Peripheral Aerobic Blood Culture - Preliminary No growth in 3 days 04/26/18 05:25 Blood - Peripheral Anaerobic Blood Culture - Preliminary No growth in 3 days 04/26/18 16:15 Tissue - Foot Acid Fast Bacilli Smear - Final No acid fast bacilli seen 04/26/18 16:15 Other Acid Fast Bacilli Smear - Final No acid fast bacilli seen 04/26/18 16:15 Tissue - Foot Gram Stain - Final 04/26/18 16:15 Tissue - Foot Wound Culture - Final Pseudomonas aeruginosa Escherichia coli Enterococcus faecium VRE 04/26/18 16:15 Tissue - Other Gram Stain - Final 04/26/18 16:15 Tissue - Other Wound Culture - Final No growth in 72 hours (aerobically and anaerobically ) Assessment and Plan - Assessment (1) Diabetic infection of right foot Code(s): E11.628 - Type 2 diabetes mellitus with other skin complications; L08.9 - Local infection of the skin and subcutaneous tissue, unspecified Status: Acute (2) Osteomyelitis of right foot Code(s): M86.9 - Osteomyelitis, unspecified Status: Acute - Plan Osteomyelitis, diabetic foot infection right foot. s/p Irrigation and debridement of ulcer/bone right foot and bone biopsy right foot Plan: To OR for further debridement of bone and possible graft tomorrow pending biopsy results. Per pathology, should be resulted by tomorrow morning or mid- day. Long-term plan will be to achieve closure over bone tomorrow, in addition to continued antibiotics per ID, as well as continuing with hyperbarics to assist with healing. NPO after breakfast tomorrow
[2018-04-29] MEDS: Enoxaparin Inj 40 MG/0.4 ML Syringe SQ SCH (22:25)
[2018-04-29] MEDS: Linezolid 600 MG Tablet PO SCH (22:25)
[2018-04-30] MEDS ORDERED: Chlorhexidine Gluconate 2% 1 Pack (2 Cloths) TOPICAL ONE (06:13)
[2018-04-30] MEDS ORDERED: Sodium Chlor 0.9% Inj 500 ML IV.SIG SCH (07:00)
[2018-04-30] MEDS: Insulin NovoLOG Aspart Correctional Sugar Inj SQ SCH ×4 (08:33→21:31)
[2018-04-30] MEDS: hydrALAZINE 10 MG Tablet PO SCH ×3 (08:35→18:30)
[2018-04-30] MEDS: Linezolid 600 MG Tablet PO SCH ×2 (08:36→21:30)
[2018-04-30] MEDS: Furosemide 20 MG Tablet PO SCH (08:36)
[2018-04-30] MEDS: Metoprolol Tartrate 25 MG Tablet PO SCH ×2 (08:36→21:29)
[2018-04-30] MEDS: Finasteride 5 MG Tablet PO SCH (08:36)
[2018-04-30] MEDS: Lactobacillus Acidophilus/L. Spores Tablet PO SCH ×3 (08:36→18:30)
[2018-04-30] MEDS: Lisinopril 20 MG Tablet PO SCH (08:37)
[2018-04-30] MEDS: Insulin Detemir Inj 1,000 UNIT/10 ML Vial SQ SCH (08:37)
[2018-04-30] MEDS: Sodium Chloride 0.9% 2 ML Flush BID IV.FLUSH SCH ×2 (08:37→21:32)
[2018-04-30] MEDS: amLODIPine 5 MG Tablet PO SCH ×2 (08:37→21:30)
[2018-04-30] MEDS ORDERED: Gadobutrol PF 10 MMOL/10 ML Vial (for RAD) IV.SIG ONE (12:04)
--- NOTE | 2018-04-30 12:42 | MR ---
EXAM DATE: 04/30/2018 12:15 PM EST AGE/SEX: 63 years / Male INDICATIONS: . Wound on plantar surface of 1st digit on right foot. CLINICAL DATA: This is the patient's subsequent encounter. Patient reports that signs and symptoms h ave been present for 2 months and indicates a pain score of 3/10. MEDICAL/SURGICAL HISTORY: Diabetes mellitus type II. CABG. Right foot surgery, Aortic valve rep laced, throat surgery COMPARISON: [facility] [place], MR FOOT RIGHT W/O CONTRAST, 02/15/2018. . TECHNIQUE: Multiplanar, multisequence MRI examination was performed without contrast and after th e intravenous administration of 10 ml Gadavist (gadobutrol) single exam dose. FINDINGS: Bones: Since the prior study the patient has developed focal cortical erosion with underlying bone ma rrow edema involving the first metatarsal just proximal to the metatarsal phalangeal joint. Mild alex a is also seen at the base of the proximal phalanx of the great toe. Joint Spaces: A moderate size joint effusion is identified in the first metatarsophalangeal joint. Marva ints are otherwise unremarkable. Tendons: The flexor tendons are intact. Soft Tissues: Status of soft tissue inflammation remains evident throughout the forefoot significant soft tissue swelling along the dorsum soft tissue defect seen along the medial forefoot adjacent to t he above described bony abnormalities. Other: The plantar fascia is intact. No signal abnormalities are seen in the plantar musculature. Post Contrast: Significant enhancement is identified in the bony structures exhibiting bone marrow ed maryam which includes the distal first metatarsal and the base of the proximal phalanx. Soft tissue enha ncement outlines what may be a tract extending to the first metatarsophalangeal joint. CONCLUSION: 1. Interval development of bone marrow edema, cortical erosion and abnormal enhancement involving th e distal first metatarsal characteristic of osteomyelitis. 2. Moderate joint effusion of the first metatarsophalangeal joint which may represent septic arthrit is. 3. Bone marrow edema at the base of the proximal phalanx of the great toe which may represent reacti ve changes or early osteomyelitis. 4. Extensive soft tissue swelling throughout the forefoot with possible tract extending from medial forefoot wound to first metatarsophalangeal joint. Electronically signed by: Taye Harper MD 04/30/2018 12:41 PM EST
[2018-04-30] MEDS ORDERED: Zolpidem Tartrate 5 MG Tablet PO PRN (13:00)
--- NOTE | 2018-04-30 16:15 | P.PNIM ---
Subjective Interval history: Reports that he still having diarrhea. No abdominal pain. Overall pain control. Still with nausea. Did not eat anything last night or this morning anxious about the final pathology report Physical Exam Vital signs: Last Vital Signs Temp 97.1 F L 04/30/18 12:00 Pulse 52 L 04/30/18 12:00 Resp 18 04/30/18 12:00 BP 142/70 H 04/30/18 12:00 Pulse Ox 100 04/30/18 12:00 Intake & Output 04/28/18 04/29/18 04/30/18 05/01/18 06:59 06:59 06:59 06:59 Intake Total 1600 / 1600 600 / 600 1580 / 1580 100 / 100 Balance 1600 / 1600 600 / 600 1580 / 1580 100 / 100 Weight 101.1 kg 99.2 kg 99.3 kg Narrative: Gen.: Well-nourished well-developed white male no acute distress Respiratory: Lungs clear to auscultation bilaterally. No wheezes or rhonchi. Abdomen: Soft, nontender, nondistended. No peritoneal signs. Normoactive bowel sounds Musculoskeletal: Bilateral lower extremities with pretibial edema, right leg greater than left. Skin: Right foot with wound VAC. Neuro: Awake, alert oriented x3. No focal deficits, moves bilateral upper and lower extremities Results Labs CBC & Chem 7: 04/28/18 05:35 04/28/18 05:35 Labs: Microbiology 04/26/18 05:20 Blood - Peripheral Aerobic Blood Culture - Preliminary No growth in 4 days 04/26/18 05:20 Blood - Peripheral Anaerobic Blood Culture - Preliminary No growth in 4 days 04/26/18 05:25 Blood - Peripheral Aerobic Blood Culture - Preliminary No growth in 4 days 04/26/18 05:25 Blood - Peripheral Anaerobic Blood Culture - Preliminary No growth in 4 days Imaging Imaging: Impressions Foot MRI 04/30/18 00:00 CONCLUSION: 1. Interval development of bone marrow edema, cortical erosion and abnormal enhancement involving the distal first metatarsal characteristic of osteomyelitis. 2. Moderate joint effusion of the first metatarsophalangeal joint which may represent septic arthritis. 3. Bone marrow edema at the base of the proximal phalanx of the great toe which may represent reactive changes or early osteomyelitis. 4. Extensive soft tissue swelling throughout the forefoot with possible tract extending from medial forefoot wound to first metatarsophalangeal joint. Assessment and Plan (1) Adjustment disorder: Code(s): F43.20 - Adjustment disorder, unspecified Status: Acute (2) Osteomyelitis of right foot: Code(s): M86.9 - Osteomyelitis, unspecified Status: Acute (3) Diabetes 1.5, managed as type 2: Code(s): E10.9 - Type 1 diabetes mellitus without complications Status: Chronic (4) CKD stage 3 due to type 2 diabetes mellitus: Code(s): E11.22 - Type 2 diabetes mellitus with diabetic chronic kidney disease; N18.3 - Chronic kidney disease, stage 3 (moderate) Status: Acute Plan 63-year-old male with past medical history significant for hypertension, diabetes mellitus, coronary artery disease and hyperlipidemia presents to the emergency department for a scheduled bone biopsy of his right foot with Dr. Layne. History of Right foot osteomyelitis Hx of incision and drainage of right foot 02/16/2018 and right foot redebridement 02/19 Patient with known MRSA osteomyelitis, admitted at the recommendation of his special education supervisor for bone biopsy Foot x-ray significant for bony erosive changes at the distal medial aspect of the first metatarsal most characteristic of osteomyelitis -Per podiatry recommendations, was holding antibiotics until after bone biopsy completed. Patient's ID provider Dr. Betancur has stopped his Zyvox 5 days ago and requested a bone biopsy. Final cultures from bone biopsy show Pseudomonas, E. coli, enterococcus faecalis VRE, infectious disease Dr. Lei consulted and recommending starting Zyvox and cefepime, path from the bone biopsy showed osteomyelitis. Per podiatry likely for surgical intervention today with bone resection. MRI of the right foot also reviewed which showed interval development of bone marrow edema characteristic of osteomyelitis involving the distal first metatarsal Coronary artery disease Status post CABG -resume aspirin, continue BB Diabetes mellitus, type II, Uncontrolled, insulin dependent with nephropathy Blood glucose elevated -Sliding-scale insulin -increase Levemir to 30 units SQ daily Hypertension/hyperlipidemia -Continue Prinivil, Lopressor, Lasix, Norvasc, blood pressure labile We will add hydralazine 10 mg p.o. 3 times daily today -continue Lipitor CKD (stage III) -Monitor renal function, continues to be stable. -avoid nephrotoxic agents History of prosthetic valve replacement -Had recent echo -stable, continue medical management Hx of urinary retention -continue Flomax. Anemia, chronic Likely due to CKD -monitor HH which has remained stable. Diarrhea, on Lactinex will check C. difficile due to persistent diarrhea. DVT prophylaxis Lovenox Progress Note: Quality VTE Deep Vein Thrombosis/Pulmonary Embolism Present on Admission: No _ (1) Adjustment disorder Qualifiers: Adjustment disorder type: (2) Osteomyelitis of right foot Qualifiers: Osteomyelitis type:
[2018-04-30] MEDS: Polymyxin/Trimethop Opth Drops 10 ML Bottle RIGHT EYE SCH (18:55)
[2018-04-30] MEDS: Enoxaparin Inj 40 MG/0.4 ML Syringe SQ SCH (21:28)
--- NOTE | 2018-04-30 22:18 | P.PNPOD ---
Physical Exam Vital signs: Vital Signs 04/30/18 00:00 04/30/18 04:00 04/30/18 08:00 Temperature 98.2 F 98.6 F 96.9 F L Pulse Rate 66 60 57 L Respiratory Rate 18 Blood Pressure 149/69 H 157/72 H 153/97 H Pulse Oximetry 97 98 97 04/30/18 12:00 04/30/18 16:00 04/30/18 20:00 Temperature 97.1 F L 97.7 F 97.4 F L Pulse Rate 52 L 52 L 62 Respiratory Rate 18 Blood Pressure 142/70 H 162/75 H 147/66 H Pulse Oximetry 100 98 100 Intake & Output 04/30/18 04/30/18 05/01/18 06:59 18:59 06:59 Intake Total 480 / 480 100 / 100 100 / 100 Balance 480 / 480 100 / 100 100 / 100 Weight 99.3 kg Intake: IV 100 / 100 100 / 100 Maxipime Inj 2,000 MG In NS Inj 100 / 100 100 / 100 100 ML @ 200 mls/hr IV.SIG Q12H [facility] Rx#:[id number] Oral 480 / 480 Other: # Voids 1 2 Date of Last Bowel Movement 04/29/18 04/29/18 Narrative: Right medial foot wound with granulation tissue starting to form to medial aspect of foot where necrotic tissue and bone was removed for biopsy. No purulence, no malodor. Medications and Allergies Active Medications: Active Medications Acetaminophen (Tylenol) 650 mg PO Q4H PRN PRN Reason: Temp > 100.4 Hydrocodone Bitart/Acetaminophen ([place] 10/325) 1 tab PO Q4H PRN PRN Reason: pain>4 Last Admin: 04/30/18 21:32 Dose: 1 tab Amlodipine Besylate (Norvasc) 5 mg PO BID [facility] Last Admin: 04/30/18 21:30 Dose: 5 mg Aspirin (Aspirin Chew) 81 mg PO DAILY [facility] Last Admin: 04/30/18 08:36 Dose: 81 mg Atorvastatin Calcium (Lipitor) 40 mg PO DAILY [facility] Last Admin: 04/30/18 08:35 Dose: 40 mg Bisacodyl (Dulcolax Supp) 10 mg RECTAL DAILY PRN PRN Reason: SEVERE CONSITIPATION Dextrose (D50w Vial) 50 ml IV.PUSH UNSCH PRN PRN Reason: PER HYPOGLYCEMIA PROTOCOL Enalaprilat (Vasotec Inj) 1.25 mg IV.PUSH Q6H PRN PRN Reason: SBP> 165 or DBP> 90 Last Admin: 04/27/18 23:53 Dose: 1.25 mg Enoxaparin Sodium (Lovenox Inj) 40 mg SQ Q24H [facility] Last Admin: 04/30/18 21:28 Dose: 40 mg Finasteride (Proscar) 5 mg PO DAILY [facility] Last Admin: 04/30/18 08:36 Dose: 5 mg Furosemide (Lasix) 20 mg PO DAILY [facility] Last Admin: 04/30/18 08:36 Dose: 20 mg Glucagon (Glucagon Inj) 1 mg OTHER PRN PRN PRN Reason: for Hypoglycemia Protocol Hydralazine HCl (Apresoline) 10 mg PO TID [facility] Last Admin: 04/30/18 18:30 Dose: 10 mg Cefepime HCl 2,000 mg/ Sodium (Chloride) 100 mls @ 200 mls/hr IV.SIG Q12H [facility] Last Infusion: 04/30/18 19:39 Dose: Infused Lactated Ringer's (Lr 1000 Ml Inj) 1,000 mls @ 30 mls/hr IV.SIG .Q24H [facility] Stop: 05/01/18 06:14 Sodium Chloride (Ns Inj) 500 mls @ 30 mls/hr IV.SIG .Q10H [facility] Insulin Aspart (Novolog Insulin Correctional Sugar Inj) 0 unit SQ ACHS [facility]; Protocol Last Admin: 04/30/18 21:31 Dose: 7 unit Insulin Detemir (Levemir Inj) 30 unit SQ DAILY [facility] Last Admin: 04/30/18 08:37 Dose: Not Given Lactobacillus Acidophilus (Lactinex) 1 tab PO TID [facility] Last Admin: 04/30/18 18:30 Dose: 1 tab Linezolid (Zyvox) 600 mg PO Q12HR [facility] Last Admin: 04/30/18 21:30 Dose: 600 mg Lisinopril (Prinivil) 20 mg PO DAILY [facility] Last Admin: 04/30/18 08:37 Dose: 20 mg Metoprolol Tartrate (Lopressor) 25 mg PO BID [facility] Last Admin: 04/30/18 21:29 Dose: 25 mg Pantoprazole Sodium (Protonix) 40 mg PO DAILY [facility] Last Admin: 04/30/18 08:37 Dose: 40 mg Polymyxin/Trimethoprim Sulfate (Polytrim Opth Drops) 1 drop RIGHT EYE TID [facility] Stop: 05/06/18 09:00 Last Admin: 04/30/18 18:55 Dose: Not Given Promethazine HCl (Phenergan) 25 mg PO Q6H PRN PRN Reason: Nausea Last Admin: 04/30/18 04:01 Dose: 25 mg Sennosides (Senokot) 17.2 mg PO Q12H PRN PRN Reason: Moderate Constipation Sodium Chloride (Ns Flush) 2 ml IV.FLUSH BID [facility] Last Admin: 04/30/18 21:32 Dose: 2 ml Sodium Chloride (Ns Flush) 2 ml IV.FLUSH PRN PRN PRN Reason: FLUSH AFTER USING IV ACCESS Tamsulosin HCl (Flomax) 0.4 mg PO DAILY [facility] Last Admin: 04/30/18 08:35 Dose: 0.4 mg Zolpidem Tartrate (Ambien) 5 mg PO HS PRN PRN Reason: INSOMNIA Allergies Allergy/AdvReac Type Severity Reaction Status Date / Time bee venom protein (honey bee) Allergy Anaphylaxis Verified 04/25/18 16:15 Home Medications Medication Instructions Recorded Confirmed Type amlodipine 5 mg PO DAILY 04/25/18 04/25/18 History aspirin 81 mg PO DAILY 04/25/18 04/25/18 History atorvastatin 40 mg PO DAILY 04/25/18 04/25/18 History baclofen 10 mg PO TID 04/25/18 04/25/18 History finasteride 5 mg PO DAILY 04/25/18 04/25/18 History furosemide 20 mg PO DAILY 04/25/18 04/25/18 History hydrocodone-acetaminophen 1 tab PO Q4H 04/25/18 04/25/18 History insulin degludec [Tresiba 12 unit SUBCUT DAILY 04/25/18 04/25/18 History FlexTouch U-100] linezolid [Zyvox] 600 mg PO BID 04/25/18 04/25/18 History lisinopril 20 mg PO DAILY 04/25/18 04/25/18 History metoprolol tartrate 25 mg PO BID 04/25/18 04/25/18 History pantoprazole 40 mg PO DAILY 04/25/18 04/25/18 History promethazine 25 mg PO Q6H PRN 04/25/18 04/25/18 History tamsulosin 0.4 mg PO DAILY 04/25/18 04/25/18 History Results - Labs CBC & Chem 7: 04/28/18 05:35 04/28/18 05:35 Laboratory Results - last 24 hr 04/30/18 04/30/18 04/30/18 07:48 12:42 17:46 POC Glucose 187 H 156 H 228 H 04/30/18 20:48 POC Glucose 326 H Microbiology 04/26/18 05:20 Blood - Peripheral Aerobic Blood Culture - Preliminary No growth in 4 days 04/26/18 05:20 Blood - Peripheral Anaerobic Blood Culture - Preliminary No growth in 4 days 04/26/18 05:25 Blood - Peripheral Aerobic Blood Culture - Preliminary No growth in 4 days 04/26/18 05:25 Blood - Peripheral Anaerobic Blood Culture - Preliminary No growth in 4 days - Imaging Impressions Foot MRI 04/30/18 00:00 CONCLUSION: 1. Interval development of bone marrow edema, cortical erosion and abnormal enhancement involving the distal first metatarsal characteristic of osteomyelitis. 2. Moderate joint effusion of the first metatarsophalangeal joint which may represent septic arthritis. 3. Bone marrow edema at the base of the proximal phalanx of the great toe which may represent reactive changes or early osteomyelitis. 4. Extensive soft tissue swelling throughout the forefoot with possible tract extending from medial forefoot wound to first metatarsophalangeal joint. Assessment and Plan - Assessment (1) Diabetic infection of right foot Code(s): E11.628 - Type 2 diabetes mellitus with other skin complications; L08.9 - Local infection of the skin and subcutaneous tissue, unspecified Status: Acute (2) Osteomyelitis of right foot Code(s): M86.9 - Osteomyelitis, unspecified Status: Acute - Plan Osteomyelitis, diabetic foot infection right foot. s/p Irrigation and debridement of ulcer/bone right foot and bone biopsy right foot PLAN: Contine M/W/F vac changes while in-house. Reviewed Bone biopsy showing chronic osteomyelitis Discussed with patient to continue current new IV antibiotics per new cultures and hyperbaric oxygen with continued wound vac to foot and possible graft in the future. Recommend patient stay through holiday weekend and monitor reaction to IV antibiotics due to diarrhea with it to make sure he will be able to adhere to this new regimen. Ok with discharge home with [facility] wound vac M/W/F next week. Follow up in my clinic 2 weeks after discharge for wound assessment.
[2018-05-01 07:30] LABS: Baso % (Auto) 0.7 % (0.0-2.0); Eos # (Auto) 0.2 th/mm3 (0.0-0.4); Eos % (Auto) 3.7 % (0.0-4.0); Hematocrit 23.2 % (39.0-51.0); Hemoglobin 7.9 gm/dL (13.0-17.0); Lymph # (Auto) 0.8 th/mm3 (1.0-4.8); Lymph % (Auto) 12.7 % (9.0-44.0); Mean Corpuscular HGB Conc 33.8 % (32.0-36.0); Mean Corpuscular Hemoglobin 28.5 pg (27.0-34.0); Mean Corpuscular Volume 84.2 fL (80.0-100.0); Mean Platelet Volume 8.6 fL (7.0-11.0); Mono # (Auto) 0.6 th/mm3 (0.0-0.9); Mono % (Auto) 9.4 % (0.0-8.0); Neut # (Auto) 4.5 th/mm3 (1.8-7.7); Neut % (Auto) 73.5 % (16.0-70.0); Platelet Count 147 th/mm3 (150-450); Red Blood Count 2.76 mil/mm3 (4.50-5.90); Red Cell Distribution Width 15.9 % (11.6-17.2); White Blood Count 6.1 th/mm3 (4.0-11.0)
[2018-05-01 08:05] LABS: Calcium 7.9 mg/dL (8.5-10.1); Carbon Dioxide 23.3 meq/L (21.0-32.0); Potassium 4.7 meq/L (3.5-5.1)
[2018-05-01] MEDS: Lactobacillus Acidophilus/L. Spores Tablet PO SCH ×3 (08:51→18:17)
[2018-05-01] MEDS: Furosemide 20 MG Tablet PO SCH (08:51)
[2018-05-01] MEDS: Finasteride 5 MG Tablet PO SCH (08:51)
[2018-05-01] MEDS: Lisinopril 20 MG Tablet PO SCH (08:51)
[2018-05-01] MEDS: amLODIPine 5 MG Tablet PO SCH ×2 (08:51→20:56)
[2018-05-01] MEDS: Insulin NovoLOG Aspart Correctional Sugar Inj SQ SCH ×5 (08:52→21:49)
[2018-05-01] MEDS: hydrALAZINE 10 MG Tablet PO SCH ×3 (08:52→18:17)
[2018-05-01] MEDS: Linezolid 600 MG Tablet PO SCH ×2 (08:52→20:57)
[2018-05-01] MEDS: Insulin Detemir Inj 1,000 UNIT/10 ML Vial SQ SCH (08:53)
[2018-05-01] MEDS: Sodium Chloride 0.9% 2 ML Flush BID IV.FLUSH SCH ×2 (08:53→20:56)
[2018-05-01] MEDS: Metoprolol Tartrate 25 MG Tablet PO SCH ×2 (08:53→20:56)
[2018-05-01] MEDS: Polymyxin/Trimethop Opth Drops 10 ML Bottle RIGHT EYE SCH ×3 (09:53→18:17)
--- NOTE | 2018-05-01 13:11 | P.PNID ---
Subjective Remarks: Patient is without complaints. Afebrile. 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 No complaints of pain. Tolerating biotics without problems. This is a 63-year-old white male who has had a history of right foot infection, which has been treated with antibiotics for some time. The patient was on IV antibiotics for MRSA with vancomycin and then was changed to Zyvox over the past 10 weeks. He was taken off antibiotics a week ago and saw the cook ice cream and was sent to the hospital for further evaluation. This consultation is requested for infection management. Past Medical History: PAST MEDICAL HISTORY: Diabetes mellitus, hypertension, coronary artery disease, aortic valve replacement 3 years ago. PAST SURGICAL HISTORY: History of foot surgery, coronary artery bypass graft surgery x3. Allergies/Adverse Reactions: Allergies bee venom protein (honey bee) Allergy (Verified 04/25/18 16:15) Anaphylaxis Objective Vital Signs 04/30/18 16:00 04/30/18 20:00 05/01/18 00:00 Temperature 97.7 F 97.4 F L 97.8 F Pulse Rate 52 L 62 61 Respiratory Rate 18 18 20 Blood Pressure 162/75 H 147/66 H 154/67 H Pulse Oximetry 98 100 98 05/01/18 04:00 05/01/18 08:00 05/01/18 12:00 Temperature 97.8 F 98.4 F 97.4 F L Pulse Rate 55 L 58 L 56 L Respiratory Rate 17 16 16 Blood Pressure 104/59 L 149/70 H 136/69 Pulse Oximetry 98 97 99 Intake & Output 04/30/18 05/01/18 05/01/18 18:59 06:59 18:59 Intake Total 100 / 100 100 / 100 100 / 100 Balance 100 / 100 100 / 100 100 / 100 Weight 101.3 kg Intake: IV 100 / 100 100 / 100 100 / 100 Maxipime Inj 2,000 MG In NS Inj 100 / 100 100 / 100 100 / 100 100 ML @ 200 mls/hr IV.SIG Q12H [facility] Rx#:[id number] Other: # Voids 3 Date of Last Bowel Movement 04/29/18 04/30/18 04/30/18 04/26/18 05:20 Blood - Peripheral Aerobic Blood Culture - Final No growth in 5 days 04/26/18 05:20 Blood - Peripheral Anaerobic Blood Culture - Final No growth in 5 days 04/26/18 05:25 Blood - Peripheral Aerobic Blood Culture - Final No growth in 5 days 04/26/18 05:25 Blood - Peripheral Anaerobic Blood Culture - Final No growth in 5 days 04/26/18 16:15 Tissue - Foot Acid Fast Bacilli Smear - Final No acid fast bacilli seen 04/26/18 16:15 Tissue - Foot Mycobacterial Culture - Pending 04/26/18 16:15 Other Acid Fast Bacilli Smear - Final No acid fast bacilli seen 04/26/18 16:15 Other Mycobacterial Culture - Pending 04/26/18 16:15 Tissue - Foot Gram Stain - Final 04/26/18 16:15 Tissue - Foot Wound Culture - Final Pseudomonas aeruginosa Escherichia coli Enterococcus faecium VRE 04/26/18 16:15 Tissue - Other Gram Stain - Final 04/26/18 16:15 Tissue - Other Wound Culture - Final No growth in 72 hours (aerobically and anaerobically ) 04/26/18 16:15 Tissue - Foot Fungal Smear - Final No fungal elements seen 04/26/18 16:15 Tissue - Foot Fungal Culture - Pending Lab - Hematology Results 05/01/18 06:00 WBC 6.1 RBC 2.76 L Hgb 7.9 L Hct 23.2 L MCV 84.2 MCH 28.5 MCHC 33.8 RDW 15.9 Plt Count 147 L MPV 8.6 Neut % (Auto) 73.5 H Lymph % (Auto) 12.7 [place] % (Auto) 9.4 H Eos % (Auto) 3.7 Baso % (Auto) 0.7 Neut # (Auto) 4.5 Lymph # (Auto) 0.8 L [place] # (Auto) 0.6 Eos # (Auto) 0.2 Baso # (Auto) 0.0 WBC Differential . Differential Comment Auto diff final Lab - Chemistry Results 04/29/18 04/29/18 04/30/18 16:46 20:45 07:48 Sodium Potassium Chloride Carbon Dioxide Anion Gap BUN Creatinine Estimated GFR POC Glucose 211 H 246 H 187 H Random Glucose Calcium 04/30/18 04/30/18 04/30/18 12:42 17:46 20:48 Sodium Potassium Chloride Carbon Dioxide Anion Gap BUN Creatinine Estimated GFR POC Glucose 156 H 228 H 326 H Random Glucose Calcium 05/01/18 05/01/18 05/01/18 06:00 07:46 11:22 Sodium 138 Potassium 4.7 Chloride 106 Carbon Dioxide 23.3 Anion Gap 9 BUN 33 H Creatinine 1.81 H Estimated GFR 38 L POC Glucose 181 H 226 H Random Glucose 184 H Calcium 7.9 L Imaging: ITS Impressions Chest X-Ray 04/25/18 21:11 CONCLUSION: No infiltrates seen. Foot X-Ray 04/25/18 21:11 CONCLUSION: Bony erosive changes at the distal medial aspect of the first metatarsal and probably the medial sesamoid at the MTP most characteristic of osteomyelitis with overlying soft tissue swelling. There is periarticular osteopenia in the right foot as well. Foot MRI 04/30/18 00:00 CONCLUSION: 1. Interval development of bone marrow edema, cortical erosion and abnormal enhancement involving the distal first metatarsal characteristic of osteomyelitis. 2. Moderate joint effusion of the first metatarsophalangeal joint which may represent septic arthritis. 3. Bone marrow edema at the base of the proximal phalanx of the great toe which may represent reactive changes or early osteomyelitis. 4. Extensive soft tissue swelling throughout the forefoot with possible tract extending from medial forefoot wound to first metatarsophalangeal joint. Physical Exam: PHYSICAL EXAM: GENERAL: No acute distress. Awake and alert and oriented. HEENT: The head is atraumatic. Extraocular movements are grossly intact. Pupils reactive to light. No icterus. NECK: Supple without adenopathy. LUNGS: Clear to auscultation. HEART: Regular rate and rhythm without murmurs, rubs or gallops. ABDOMEN: Bowel sounds present. Soft. No tenderness. EXTREMITIES: Right foot has a surgical dressing in place with a wound VAC, which has serosanguineous drainage at the wound bed. SKIN: No diffuse rash. NEUROLOGIC: No gross focal findings. PSYCHIATRIC: Calm and cooperative. Assessment and Plan - Plan IMPRESSION: 1. Chronic wound infection of the right foot with osteomyelitis of the first metatarsal. Bone tissue culture has no growth. Wound of the right foot. Culture has VRE and Pseudomonas and E. coli. 2. Diabetes mellitus. RECOMMENDATIONS: 1. Continue Zyvox p.o. for the VRE x 2 weeks. Monitor platelet count while on Zyvox. 2. Continue cefepime for pseudomonas and E. coli for 2 weeks. Give a 2-week course of antibiotic treatment and after that he can start hyperbaric treatments. Approved for hyperbaric treatments already. He is known to Dr. Betancur and can follow-up with her on discharge.
--- NOTE | 2018-05-01 14:47 | P.PNIM ---
Subjective Interval history: Patient reports that he developed painful lesions down his chin and upper lip. His still has crusty eye discharge from the right eye. He reports no further diarrhea and is tolerating his diet. He has not had any chest pain or any shortness of breath. There is no associated abdominal pain at this time. He would like to see if he can follow-up with our wound care center here versus driving down to [place] for hyperbaric treatment when he is discharged from the hospital. He also reports Lovenox injections are painful and questioned the necessity of the medication. He is open to trying heparin Physical Exam Vital signs: Last Vital Signs Temp 97.4 F L 05/01/18 12:00 Pulse 56 L 05/01/18 12:00 Resp 16 05/01/18 12:00 BP 136/69 05/01/18 12:00 Pulse Ox 99 05/01/18 12:00 Intake & Output 04/29/18 04/30/18 05/01/18 05/02/18 06:59 06:59 06:59 06:59 Intake Total 600 / 600 1580 / 1580 200 / 200 100 / 100 Balance 600 / 600 1580 / 1580 200 / 200 100 / 100 Weight 99.2 kg 99.3 kg 101.3 kg Narrative: Gen.: Well-nourished well-developed white male no acute distress HEENT: No significant drainage seen from the right eye, pupils equal reactive to light bilaterally Respiratory: Lungs clear to auscultation bilaterally. No wheezes or rhonchi. Abdomen: Soft, nontender, nondistended. No peritoneal signs. Normoactive bowel sounds Musculoskeletal: Bilateral lower extremities with pretibial edema, right leg greater than left. Right foot with wound VAC Skin: Supple crusty vesicular papular lesions in the lower chin, left upper lip Neuro: Awake, alert oriented x3. No focal deficits, moves bilateral upper and lower extremities Results Labs CBC & Chem 7: 05/01/18 06:00 05/01/18 06:00 Labs: Microbiology 04/26/18 05:20 Blood - Peripheral Aerobic Blood Culture - Final No growth in 5 days 04/26/18 05:20 Blood - Peripheral Anaerobic Blood Culture - Final No growth in 5 days 04/26/18 05:25 Blood - Peripheral Aerobic Blood Culture - Final No growth in 5 days 04/26/18 05:25 Blood - Peripheral Anaerobic Blood Culture - Final No growth in 5 days Assessment and Plan (1) Adjustment disorder: Code(s): F43.20 - Adjustment disorder, unspecified Status: Acute (2) Osteomyelitis of right foot: Code(s): M86.9 - Osteomyelitis, unspecified Status: Acute (3) Diabetes 1.5, managed as type 2: Code(s): E10.9 - Type 1 diabetes mellitus without complications Status: Chronic (4) CKD stage 3 due to type 2 diabetes mellitus: Code(s): E11.22 - Type 2 diabetes mellitus with diabetic chronic kidney disease; N18.3 - Chronic kidney disease, stage 3 (moderate) Status: Acute Plan 63-year-old male with past medical history significant for hypertension, diabetes mellitus, coronary artery disease and hyperlipidemia presents to the emergency department for a scheduled bone biopsy of his right foot with Dr. Layne. History of Right foot osteomyelitis Hx of incision and drainage of right foot 02/16/2018 and right foot redebridement 02/19 Patient with known MRSA osteomyelitis, admitted at the recommendation of his hyperbaric nurse for bone biopsy Foot x-ray significant for bony erosive changes at the distal medial aspect of the first metatarsal most characteristic of osteomyelitis Patient's ID provider Dr. Betancur has stopped his Zyvox 5 days ago prior to admission and requested a bone biopsy. Final cultures from bone biopsy show Pseudomonas, E. coli, enterococcus faecalis VRE, infectious disease Dr. Lei consulted and recommending Zyvox and cefepime IV twice daily for 2 more weeks, path from the bone biopsy showed chronic osteomyelitis. MRI of the right foot also reviewed which showed interval development of bone marrow edema characteristic of osteomyelitis involving the distal first metatarsal No further surgical intervention from podiatry and recommended continue monitoring antibiotics with discharge planning next week. Patient had diarrhea during the past 2 days however during the past 24-hour had no further stool, will cancel the C. difficile collection Coronary artery disease Status post CABG -resume aspirin, continue BB Diabetes mellitus, type II, Uncontrolled, insulin dependent with nephropathy Blood glucose elevated and still uncontrolled -Sliding-scale insulin -Continue Levemir to 30 units SQ daily Start preprandial NovoLog 4 units p.o. 3 times daily Hypertension/hyperlipidemiablood pressure better controlled -Continue Prinivil, Lopressor, Lasix, Norvasc, and hydralazine -continue Lipitor CKD (stage III) -Monitor renal function, worsening today -continue to monitor on antibiotics. -avoid nephrotoxic agents History of prosthetic valve replacement -Had recent echo -stable, continue medical management, continue with Lopressor, Lasix Hx of urinary retention -continue Flomax. Anemia, chronic Likely due to CKD -monitor HH which has remained stable. Slight drop in hemoglobin today but remains asymptomatic; if continues to drop consider Epogen Diarrhea, on Lactinex -no further episodes to past 24 hours. We will cancel C. difficile collection DVT prophylaxis change Lovenox to heparin subcu twice daily Discharge Planning: Ask employment case manager to evaluate the patient can go to hyperbaric treatment at [facility] wound care as per patient's request as they live in [place]. Will need continued home health care for wound care and IV antibiotic infusion. Progress Note: Quality VTE Deep Vein Thrombosis/Pulmonary Embolism Present on Admission: No _ (1) Adjustment disorder Qualifiers: Adjustment disorder type: (2) Osteomyelitis of right foot Qualifiers: Osteomyelitis type:
[2018-05-01] MEDS ORDERED: Insulin NovoLOG Aspart Correctional Sugar Inj SQ SCH (17:00)
[2018-05-01] MEDS: Heparin - SQ 10,000 UNITS/ML Vial SQ SCH (18:17)
[2018-05-02] MEDS: Heparin - SQ 10,000 UNITS/ML Vial SQ SCH ×2 (05:59→18:11)
[2018-05-02] MEDS: Polymyxin/Trimethop Opth Drops 10 ML Bottle RIGHT EYE SCH ×3 (09:35→18:36)
[2018-05-02] MEDS: Insulin NovoLOG Aspart Correctional Sugar Inj SQ SCH ×7 (09:52→22:13)
[2018-05-02] MEDS: hydrALAZINE 10 MG Tablet PO SCH ×3 (09:53→18:40)
[2018-05-02] MEDS: Lactobacillus Acidophilus/L. Spores Tablet PO SCH ×3 (09:53→18:40)
[2018-05-02] MEDS: Furosemide 20 MG Tablet PO SCH ×2 (09:58→10:01)
[2018-05-02] MEDS: Metoprolol Tartrate 25 MG Tablet PO SCH ×2 (10:00→22:12)
[2018-05-02] MEDS: Lisinopril 20 MG Tablet PO SCH (10:00)
[2018-05-02] MEDS: Linezolid 600 MG Tablet PO SCH ×2 (10:00→22:11)
[2018-05-02] MEDS: amLODIPine 5 MG Tablet PO SCH ×2 (10:00→22:11)
[2018-05-02] MEDS: Sodium Chloride 0.9% 2 ML Flush BID IV.FLUSH SCH ×2 (10:00→22:14)
[2018-05-02] MEDS: Finasteride 5 MG Tablet PO SCH (10:00)
[2018-05-02 11:27] LABS: Hematocrit 23.8 % (39.0-51.0); Hemoglobin 8.1 gm/dL (13.0-17.0); Mean Corpuscular HGB Conc 33.9 % (32.0-36.0); Mean Corpuscular Hemoglobin 28.7 pg (27.0-34.0); Mean Corpuscular Volume 84.5 fL (80.0-100.0); Mean Platelet Volume 7.9 fL (7.0-11.0); Platelet Count 148 th/mm3 (150-450); Red Blood Count 2.82 mil/mm3 (4.50-5.90); Red Cell Distribution Width 16.5 % (11.6-17.2); White Blood Count 5.8 th/mm3 (4.0-11.0)
[2018-05-02 11:50] LABS: Calcium 8.2 mg/dL (8.5-10.1); Carbon Dioxide 26.6 meq/L (21.0-32.0); Potassium 4.4 meq/L (3.5-5.1)
[2018-05-02] MEDS: Insulin Detemir Inj 1,000 UNIT/10 ML Vial SQ SCH (12:02)
--- NOTE | 2018-05-02 14:38 | P.PNIM ---
Subjective Interval history: Patient reports nausea and vomiting today. He is inquiring if this may be related to Zyvox. He denies abdominal pain. He has been taking more pain medication since admitted to the hospital. Physical Exam Vital signs: Vital Signs 05/01/18 16:00 05/01/18 20:00 05/02/18 00:00 Temperature 97.3 F L 97.2 F L 98.3 F Pulse Rate 53 L 57 L 56 L Respiratory Rate 16 18 19 Blood Pressure 139/56 L 140/66 131/63 Pulse Oximetry 98 98 99 05/02/18 04:00 05/02/18 08:00 05/02/18 12:00 Temperature 97.6 F 97.7 F 97.4 F L Pulse Rate 53 L 53 L 56 L Respiratory Rate 20 17 18 Blood Pressure 116/56 L 133/63 120/58 L Pulse Oximetry 96 98 99 Intake & Output 05/01/18 05/02/18 05/02/18 18:59 06:59 18:59 Intake Total 1420 / 1420 100 / 100 Balance 1420 / 1420 100 / 100 Weight 102.3 kg Intake: IV 100 / 100 100 / 100 Maxipime Inj 2,000 MG In NS Inj 100 / 100 100 / 100 100 ML @ 200 mls/hr IV.SIG Q12H JENNIFER Rx#:[id number] Oral 1320 / 1320 Other: Mode Setting Right Posterior Foot Continuous Continuous # Voids 3 Date of Last Bowel Movement 04/30/18 04/30/18 04/30/18 Narrative: Gen.: Well-nourished well-developed white male no acute distress Respiratory: Lungs clear to auscultation bilaterally. No wheezes or rhonchi. Abdomen: Soft, nontender, nondistended. Hypoactive bowel sounds Musculoskeletal: Bilateral lower extremities with pretibial edema, right leg greater than left. Right foot with wound VAC Neuro: Awake, alert oriented x3. No focal deficits, moves bilateral upper and lower extremities Results - Labs CBC & Chem 7: 05/02/18 11:13 05/02/18 11:13 Laboratory Results - last 24 hr 05/01/18 05/01/18 05/02/18 16:56 21:01 08:19 WBC RBC Hgb Hct MCV MCH MCHC RDW Plt Count MPV Sodium Potassium Chloride Carbon Dioxide Anion Gap BUN Creatinine Estimated GFR POC Glucose 190 H 227 H 118 H Random Glucose Calcium 05/02/18 05/02/18 05/02/18 11:13 11:13 12:21 WBC 5.8 RBC 2.82 L Hgb 8.1 L Hct 23.8 L MCV 84.5 MCH 28.7 MCHC 33.9 RDW 16.5 Plt Count 148 L MPV 7.9 Sodium 139 Potassium 4.4 Chloride 106 Carbon Dioxide 26.6 Anion Gap 6 BUN 35 H Creatinine 1.73 H Estimated GFR 40 L POC Glucose 158 H Random Glucose 133 H Calcium 8.2 L Microbiology 04/26/18 05:20 Blood - Peripheral Aerobic Blood Culture - Final No growth in 5 days 04/26/18 05:20 Blood - Peripheral Anaerobic Blood Culture - Final No growth in 5 days 04/26/18 05:25 Blood - Peripheral Aerobic Blood Culture - Final No growth in 5 days 04/26/18 05:25 Blood - Peripheral Anaerobic Blood Culture - Final No growth in 5 days Assessment and Plan - Assessment (1) Adjustment disorder Code(s): F43.20 - Adjustment disorder, unspecified Status: Acute (2) Osteomyelitis of right foot Code(s): M86.9 - Osteomyelitis, unspecified Status: Acute (3) Diabetes 1.5, managed as type 2 Code(s): E10.9 - Type 1 diabetes mellitus without complications Status: Chronic (4) CKD stage 3 due to type 2 diabetes mellitus Code(s): E11.22 - Type 2 diabetes mellitus with diabetic chronic kidney disease ; N18.3 - Chronic kidney disease, stage 3 (moderate) Status: Acute - Plan 63-year-old male with past medical history significant for hypertension, diabetes mellitus, coronary artery disease and hyperlipidemia presents to the emergency department for a scheduled bone biopsy of his right foot with Dr. Layne. History of Right foot osteomyelitis Hx of incision and drainage of right foot 02/16/2018 and right foot redebridement 02/19 Patient with known MRSA osteomyelitis, admitted at the recommendation of his securities broker for bone biopsy Foot x-ray significant for bony erosive changes at the distal medial aspect of the first metatarsal most characteristic of osteomyelitis Patient's ID provider Dr. Betancur has stopped his Zyvox 5 days ago prior to admission and requested a bone biopsy. Final cultures from bone biopsy show Pseudomonas, E. coli, enterococcus faecalis VRE, infectious disease Dr. Lei consulted and recommending Zyvox and cefepime IV twice daily for 2 more weeks, path from the bone biopsy showed chronic osteomyelitis. MRI of the right foot also reviewed which showed interval development of bone marrow edema characteristic of osteomyelitis involving the distal first metatarsal No further surgical intervention from podiatry and recommended continue antibiotics and wound VAC changes. Case management working on obtaining wound VAC for home health. Nausea and vomiting today: - Could be medication side effects. Doubt Zyvox. - We will switch him from [place] to Percocet as it tends to have less GI side effects. - Obtain abdominal x-ray. Antiemetics as needed. Coronary artery disease Status post CABG -Continue aspirin, continue BB Diabetes mellitus, type II, Uncontrolled, insulin dependent with nephropathy Blood glucose elevated and still uncontrolled -Sliding-scale insulin -Continue Levemir to 30 units SQ daily Preprandial NovoLog 4 units p.o. 3 times daily Hypertension/hyperlipidemiablood pressure better controlled -Continue Prinivil, Lopressor, Lasix, Norvasc, and hydralazine -continue Lipitor CKD (stage III) -Monitor renal function, stable today -continue to monitor on antibiotics. -avoid nephrotoxic agents History of prosthetic valve replacement -Had recent echo -stable, continue medical management, continue with Lopressor, Lasix Hx of urinary retention -continue Flomax. Anemia, chronic Likely due to CKD -monitor HH which has remained stable. Diarrhea, on Lactinex -no further episodes for the past couple of days. C-diff testing canceled. DVT prophylaxis with heparin subcu twice daily Discharge Planning: Need to set up wound VAC and home antibiotics with home health. Case management assisting.
--- NOTE | 2018-05-02 15:07 | XR ---
EXAM DATE: 05/02/2018 3:03 PM EST AGE/SEX: 63 years / Male INDICATIONS: Vomiting today. CLINICAL DATA: This is the patient's initial encounter. Patient reports that signs and symptoms have been present for 1 day and indicates a pain score of 0/10. MEDICAL/SURGICAL HISTORY: . none known . none known COMPARISON: [facility] [place] & PELVIS W CONTRAST, 02/23/2018. . FINDINGS: Moderate amount of stool in the colon. No small, large bowel are gastric distention demonstrated. No free air. No evidence of organomegaly. CONCLUSION: Benign-appearing abdomen. Considerable stool in the colon. Electronically signed by: Khoa Eugene MD 05/02/2018 3:06 PM EST
[2018-05-02] MEDS: oxyCODONE/Acetaminophen 10/325 Tablet PO PRN ×2 (15:38→22:11)
[2018-05-03] MEDS: Heparin - SQ 10,000 UNITS/ML Vial SQ SCH ×2 (04:45→16:31)
[2018-05-03 05:13] LABS: Hematocrit 24.2 % (39.0-51.0); Hemoglobin 8.2 gm/dL (13.0-17.0); Mean Corpuscular HGB Conc 33.9 % (32.0-36.0); Mean Corpuscular Hemoglobin 28.4 pg (27.0-34.0); Mean Corpuscular Volume 83.8 fL (80.0-100.0); Mean Platelet Volume 8.4 fL (7.0-11.0); Platelet Count 175 th/mm3 (150-450); Red Blood Count 2.89 mil/mm3 (4.50-5.90); Red Cell Distribution Width 16.1 % (11.6-17.2); White Blood Count 5.6 th/mm3 (4.0-11.0)
[2018-05-03 05:30] LABS: Calcium 8.3 mg/dL (8.5-10.1); Carbon Dioxide 25.8 meq/L (21.0-32.0); Potassium 4.5 meq/L (3.5-5.1)
[2018-05-03] MEDS: amLODIPine 5 MG Tablet PO SCH ×2 (09:29→20:46)
[2018-05-03] MEDS: Furosemide 20 MG Tablet PO SCH (09:29)
[2018-05-03] MEDS: Polymyxin/Trimethop Opth Drops 10 ML Bottle RIGHT EYE SCH ×3 (09:29→18:05)
[2018-05-03] MEDS: Metoprolol Tartrate 25 MG Tablet PO SCH ×2 (09:30→20:46)
[2018-05-03] MEDS: Lactobacillus Acidophilus/L. Spores Tablet PO SCH ×3 (09:30→17:30)
[2018-05-03] MEDS: hydrALAZINE 10 MG Tablet PO SCH ×3 (09:30→17:30)
[2018-05-03] MEDS: Linezolid 600 MG Tablet PO SCH ×2 (09:30→20:46)
[2018-05-03] MEDS: Finasteride 5 MG Tablet PO SCH (09:31)
[2018-05-03] MEDS: Sodium Chloride 0.9% 2 ML Flush BID IV.FLUSH SCH ×2 (09:31→22:39)
[2018-05-03] MEDS: Lisinopril 20 MG Tablet PO SCH (09:31)
[2018-05-03] MEDS: Insulin NovoLOG Aspart Correctional Sugar Inj SQ SCH ×7 (09:31→20:52)
[2018-05-03] MEDS: Insulin Detemir Inj 1,000 UNIT/10 ML Vial SQ SCH (09:32)
[2018-05-03] MEDS: oxyCODONE/Acetaminophen 10/325 Tablet PO PRN ×3 (09:33→20:46)
--- NOTE | 2018-05-03 14:09 | P.PNIM ---
Subjective Interval history: Patient reports he is feeling better today. No longer having nausea or vomiting. Wound VAC scheduled to be changed today. Discussed with RN. Physical Exam Vital signs: Vital Signs 05/02/18 16:00 05/02/18 19:40 05/03/18 00:00 Temperature 97.3 F L 98.1 F 97.6 F Pulse Rate 57 L 84 64 Respiratory Rate 18 18 22 Blood Pressure 145/71 H 138/69 134/63 Pulse Oximetry 98 99 98 05/03/18 00:05 05/03/18 04:33 05/03/18 08:00 Temperature 98.0 F 97.8 F Pulse Rate 58 L 59 L Respiratory Rate 18 18 20 Blood Pressure 132/58 L 160/71 H Pulse Oximetry 97 94 L 05/03/18 10:18 Temperature Pulse Rate Respiratory Rate 18 Blood Pressure Pulse Oximetry Intake & Output 05/02/18 05/03/18 05/03/18 18:59 06:59 18:59 Intake Total 100 / 100 550 / 550 Balance 100 / 100 550 / 550 Weight 101 kg Intake: IV 100 / 100 100 / 100 Maxipime Inj 2,000 MG In NS Inj 100 / 100 100 / 100 100 ML @ 200 mls/hr IV.SIG Q12H JENNIFER Rx#:[id number] Oral 450 / 450 Other: Mode Setting Right Posterior Foot Continuous Continuous Continuous # Voids 4 Date of Last Bowel Movement 04/30/18 05/02/18 Narrative: Gen.: Well-nourished well-developed white male no acute distress Respiratory: Lungs clear to auscultation bilaterally. No wheezes or rhonchi. Abdomen: Soft, nontender, nondistended. Hypoactive bowel sounds Musculoskeletal: Bilateral lower extremities with pretibial edema, right leg greater than left. Right foot with wound VAC Neuro: Awake, alert oriented x3. No focal deficits, moves bilateral upper and lower extremities Results - Labs CBC & Chem 7: 05/03/18 04:40 05/03/18 04:40 Laboratory Results - last 24 hr 05/02/18 05/02/18 05/03/18 18:18 22:02 04:40 WBC 5.6 RBC 2.89 L Hgb 8.2 L Hct 24.2 L MCV 83.8 MCH 28.4 MCHC 33.9 RDW 16.1 Plt Count 175 MPV 8.4 Sodium Potassium Chloride Carbon Dioxide Anion Gap BUN Creatinine Estimated GFR POC Glucose 226 H 164 H Random Glucose Calcium 05/03/18 05/03/18 05/03/18 04:40 07:47 12:55 WBC RBC Hgb Hct MCV MCH MCHC RDW Plt Count MPV Sodium 138 Potassium 4.5 Chloride 106 Carbon Dioxide 25.8 Anion Gap 6 BUN 42 H Creatinine 2.09 H Estimated GFR 32 L POC Glucose 223 H 179 H Random Glucose 222 H Calcium 8.3 L Microbiology 04/26/18 16:15 Tissue - Foot Fungal Smear - Final No fungal elements seen 04/26/18 16:15 Tissue - Foot Fungal Culture - Preliminary No growth in 1 week 04/26/18 16:15 Tissue - Foot Acid Fast Bacilli Smear - Final No acid fast bacilli seen 04/26/18 16:15 Tissue - Foot Mycobacterial Culture - Preliminary No growth in 1 week 04/26/18 16:15 Other Fungal Smear - Final No fungal elements seen 04/26/18 16:15 Other Fungal Culture - Preliminary No growth in 1 week 04/26/18 16:15 Other Acid Fast Bacilli Smear - Final No acid fast bacilli seen 04/26/18 16:15 Other Mycobacterial Culture - Preliminary No growth in 1 week - Imaging Impressions Abdomen X-Ray 05/02/18 00:00 CONCLUSION: Benign-appearing abdomen. Considerable stool in the colon. Assessment and Plan - Assessment (1) Adjustment disorder Code(s): F43.20 - Adjustment disorder, unspecified Status: Acute (2) Osteomyelitis of right foot Code(s): M86.9 - Osteomyelitis, unspecified Status: Acute (3) Diabetes 1.5, managed as type 2 Code(s): E10.9 - Type 1 diabetes mellitus without complications Status: Chronic (4) CKD stage 3 due to type 2 diabetes mellitus Code(s): E11.22 - Type 2 diabetes mellitus with diabetic chronic kidney disease ; N18.3 - Chronic kidney disease, stage 3 (moderate) Status: Acute - Plan 63-year-old male with past medical history significant for hypertension, diabetes mellitus, coronary artery disease and hyperlipidemia presents to the emergency department for a scheduled bone biopsy of his right foot with Dr. Layne. History of Right foot osteomyelitis Hx of incision and drainage of right foot 02/16/2018 and right foot redebridement 02/19 Patient with known MRSA osteomyelitis, admitted at the recommendation of his rn pain management for bone biopsy Foot x-ray significant for bony erosive changes at the distal medial aspect of the first metatarsal most characteristic of osteomyelitis Patient's ID provider Dr. Betancur has stopped his Zyvox 5 days ago prior to admission and requested a bone biopsy. Final cultures from bone biopsy show Pseudomonas, E. coli, enterococcus faecalis VRE, infectious disease Dr. Lei consulted and recommending Zyvox and cefepime IV twice daily for 2 more weeks, path from the bone biopsy showed chronic osteomyelitis. MRI of the right foot also reviewed which showed interval development of bone marrow edema characteristic of osteomyelitis involving the distal first metatarsal No further surgical intervention from podiatry and recommended continue antibiotics and wound VAC changes. Case management working on obtaining wound VAC for home health. -Wound VAC change Sunday, Sunday, Sunday. Discussed with patient that the floor RN is qualified and trained to change the wound VAC. Nausea and vomiting: Likely secondary to medication side effect. Improved since he was changed from [place] to Percocet. -Nominal x-ray unremarkable except for some stool in the colon. Antiemetics and stool softener as needed. Coronary artery disease Status post CABG -Continue aspirin, continue BB Diabetes mellitus, type II, Uncontrolled, insulin dependent with nephropathy Blood glucose elevated and still uncontrolled -Sliding-scale insulin -Continue Levemir to 30 units SQ daily Preprandial NovoLog 4 units p.o. 3 times daily Hypertension/hyperlipidemiablood pressure better controlled -Continue Prinivil, Lopressor, Lasix, Norvasc, and hydralazine -continue Lipitor CKD (stage III) -Monitor renal function, stable today -continue to monitor on antibiotics. -avoid nephrotoxic agents History of prosthetic valve replacement -Had recent echo -stable, continue medical management, continue with Lopressor, Lasix Hx of urinary retention -continue Flomax. Anemia, chronic Likely due to CKD -monitor HH which has remained stable. Diarrhea, resolved. C-diff testing canceled. DVT prophylaxis with heparin subcu twice daily Discharge Planning: Need to set up wound VAC and home antibiotics with home health. Case management assisting.
[2018-05-04] MEDS: oxyCODONE/Acetaminophen 10/325 Tablet PO PRN ×4 (01:30→22:27)
[2018-05-04] MEDS: Heparin - SQ 10,000 UNITS/ML Vial SQ SCH ×2 (06:44→18:27)
[2018-05-04 08:10] LABS: Hematocrit 23.7 % (39.0-51.0); Hemoglobin 8.2 gm/dL (13.0-17.0); Mean Corpuscular HGB Conc 34.8 % (32.0-36.0); Mean Corpuscular Hemoglobin 28.8 pg (27.0-34.0); Mean Corpuscular Volume 82.9 fL (80.0-100.0); Mean Platelet Volume 8.9 fL (7.0-11.0); Platelet Count 159 th/mm3 (150-450); Red Blood Count 2.85 mil/mm3 (4.50-5.90); Red Cell Distribution Width 16.3 % (11.6-17.2); White Blood Count 5.3 th/mm3 (4.0-11.0)
[2018-05-04] MEDS: Insulin NovoLOG Aspart Correctional Sugar Inj SQ SCH ×7 (08:11→20:37)
[2018-05-04 08:28] LABS: Calcium 8.3 mg/dL (8.5-10.1); Carbon Dioxide 25.2 meq/L (21.0-32.0); Potassium 4.5 meq/L (3.5-5.1)
[2018-05-04] MEDS: Furosemide 20 MG Tablet PO SCH (10:42)
[2018-05-04] MEDS: Lactobacillus Acidophilus/L. Spores Tablet PO SCH ×3 (10:42→18:28)
[2018-05-04] MEDS: amLODIPine 5 MG Tablet PO SCH ×2 (10:43→20:37)
[2018-05-04] MEDS: Linezolid 600 MG Tablet PO SCH ×2 (10:43→20:36)
[2018-05-04] MEDS: hydrALAZINE 10 MG Tablet PO SCH ×3 (10:43→18:28)
[2018-05-04] MEDS: Metoprolol Tartrate 25 MG Tablet PO SCH ×2 (10:43→20:36)
[2018-05-04] MEDS: Finasteride 5 MG Tablet PO SCH (10:43)
[2018-05-04] MEDS: Lisinopril 20 MG Tablet PO SCH (10:44)
[2018-05-04] MEDS: Insulin Detemir Inj 1,000 UNIT/10 ML Vial SQ SCH (10:45)
[2018-05-04] MEDS: Sodium Chloride 0.9% 2 ML Flush BID IV.FLUSH SCH ×2 (10:47→20:38)
[2018-05-04] MEDS: Polymyxin/Trimethop Opth Drops 10 ML Bottle RIGHT EYE SCH ×3 (10:49→18:28)
--- NOTE | 2018-05-04 14:42 | P.PNIM ---
Subjective Interval history: Patient has no specific complaints today. He is generally unhappy about his hospitalization. No nausea or vomiting. Pain is controlled. Physical Exam Vital signs: Vital Signs 05/03/18 16:00 05/03/18 20:00 05/04/18 00:00 Temperature 98.2 F 97.6 F 98.6 F Pulse Rate 56 L 56 L 54 L Respiratory Rate 20 18 18 Blood Pressure 139/64 124/57 L 138/66 Pulse Oximetry 97 97 98 05/04/18 04:00 05/04/18 08:00 05/04/18 12:00 Temperature 98.2 F 98.4 F 97.8 F Pulse Rate 59 L 58 L 54 L Respiratory Rate 18 20 20 Blood Pressure 135/61 118/57 L 149/70 H Pulse Oximetry 96 97 97 Intake & Output 05/03/18 05/04/18 05/04/18 18:59 06:59 18:59 Intake Total 100 / 100 220 / 220 100 / 100 Balance 100 / 100 220 / 220 100 / 100 Intake: IV 100 / 100 100 / 100 Maxipime Inj 2,000 MG In NS Inj 100 / 100 100 / 100 100 ML @ 200 mls/hr IV.SIG Q12H JENNIFER Rx#:[id number] Oral 220 / 220 Other: Mode Setting Right Posterior Foot Continuous Continuous Continuous # Voids 2 4 Narrative: Gen.: Well-nourished well-developed white male no acute distress Respiratory: Lungs clear to auscultation bilaterally. No wheezes or rhonchi. Abdomen: Soft, nontender, nondistended. Hypoactive bowel sounds Musculoskeletal: Bilateral lower extremities with pretibial edema, right leg greater than left. Right foot with wound VAC Results - Labs CBC & Chem 7: 05/04/18 06:00 05/04/18 06:00 Laboratory Results - last 24 hr 05/03/18 05/03/18 05/04/18 16:29 20:52 06:00 WBC 5.3 RBC 2.85 L Hgb 8.2 L Hct 23.7 L MCV 82.9 MCH 28.8 MCHC 34.8 RDW 16.3 Plt Count 159 MPV 8.9 Sodium Potassium Chloride Carbon Dioxide Anion Gap BUN Creatinine Estimated GFR POC Glucose 113 H 115 H Random Glucose Calcium 05/04/18 05/04/18 05/04/18 06:00 08:07 11:49 WBC RBC Hgb Hct MCV MCH MCHC RDW Plt Count MPV Sodium 140 Potassium 4.5 Chloride 108 H Carbon Dioxide 25.2 Anion Gap 7 BUN 37 H Creatinine 1.92 H Estimated GFR 35 L POC Glucose 102 116 H Random Glucose 94 D Calcium 8.3 L Microbiology 04/26/18 16:15 Tissue - Foot Fungal Smear - Final No fungal elements seen 04/26/18 16:15 Tissue - Foot Fungal Culture - Preliminary No growth in 1 week 04/26/18 16:15 Tissue - Foot Acid Fast Bacilli Smear - Final No acid fast bacilli seen 04/26/18 16:15 Tissue - Foot Mycobacterial Culture - Preliminary No growth in 1 week 04/26/18 16:15 Other Fungal Smear - Final No fungal elements seen 04/26/18 16:15 Other Fungal Culture - Preliminary No growth in 1 week 04/26/18 16:15 Other Acid Fast Bacilli Smear - Final No acid fast bacilli seen 04/26/18 16:15 Other Mycobacterial Culture - Preliminary No growth in 1 week Assessment and Plan - Assessment (1) Adjustment disorder Code(s): F43.20 - Adjustment disorder, unspecified Status: Acute (2) Osteomyelitis of right foot Code(s): M86.9 - Osteomyelitis, unspecified Status: Acute (3) Diabetes 1.5, managed as type 2 Code(s): E10.9 - Type 1 diabetes mellitus without complications Status: Chronic (4) CKD stage 3 due to type 2 diabetes mellitus Code(s): E11.22 - Type 2 diabetes mellitus with diabetic chronic kidney disease ; N18.3 - Chronic kidney disease, stage 3 (moderate) Status: Acute - Plan 63-year-old male with past medical history significant for hypertension, diabetes mellitus, coronary artery disease and hyperlipidemia presents to the emergency department for a scheduled bone biopsy of his right foot with Dr. Layne. History of Right foot osteomyelitis Hx of incision and drainage of right foot 02/16/2018 and right foot redebridement 02/19 Patient with known MRSA osteomyelitis, admitted at the recommendation of his um specialist for bone biopsy Foot x-ray significant for bony erosive changes at the distal medial aspect of the first metatarsal most characteristic of osteomyelitis Patient's ID provider Dr. Betancur has stopped his Zyvox 5 days ago prior to admission and requested a bone biopsy. Final cultures from bone biopsy show Pseudomonas, E. coli, enterococcus faecalis VRE, infectious disease Dr. Lei consulted and recommending Zyvox and cefepime IV twice daily for 2 more weeks, path from the bone biopsy showed chronic osteomyelitis. MRI of the right foot also reviewed which showed interval development of bone marrow edema characteristic of osteomyelitis involving the distal first metatarsal No further surgical intervention from podiatry and recommended continue antibiotics and wound VAC changes. Case management working on obtaining wound VAC for home health. -Wound VAC change Sunday, Sunday, Sunday. Discussed with patient that the floor RN is qualified and trained to change the wound VAC. - Awaiting for arrangement for wound vac at home. Likely Sunday. Nausea and vomiting: Likely secondary to medication side effect. Resolved -Nominal x-ray unremarkable except for some stool in the colon. Antiemetics and stool softener as needed. Coronary artery disease Status post CABG -Continue aspirin, continue BB Diabetes mellitus, type II, Uncontrolled, insulin dependent with nephropathy Blood glucose elevated and still uncontrolled -Sliding-scale insulin -Continue Levemir to 30 units SQ daily Preprandial NovoLog 4 units p.o. 3 times daily Hypertension/hyperlipidemiablood pressure better controlled -Continue Prinivil, Lopressor, Lasix, Norvasc, and hydralazine -continue Lipitor CKD (stage III) -Monitor renal function, stable today -continue to monitor on antibiotics. -avoid nephrotoxic agents History of prosthetic valve replacement -Had recent echo -stable, continue medical management, continue with Lopressor, Lasix Hx of urinary retention -continue Flomax. Anemia, chronic Likely due to CKD -monitor HH which has remained stable. Diarrhea, resolved. DVT prophylaxis with heparin subcu twice daily Discharge Planning: Need to set up wound VAC and home antibiotics with home health. Case management assisting.
[2018-05-05] MEDS: Heparin - SQ 10,000 UNITS/ML Vial SQ SCH ×2 (04:46→17:25)
[2018-05-05] MEDS: oxyCODONE/Acetaminophen 10/325 Tablet PO PRN ×4 (04:47→21:30)
[2018-05-05] MEDS: Insulin NovoLOG Aspart Correctional Sugar Inj SQ SCH ×7 (08:45→21:52)
[2018-05-05] MEDS: Linezolid 600 MG Tablet PO SCH ×2 (08:47→21:27)
[2018-05-05] MEDS: hydrALAZINE 10 MG Tablet PO SCH ×3 (08:48→17:27)
[2018-05-05] MEDS: Metoprolol Tartrate 25 MG Tablet PO SCH ×2 (08:48→21:27)
[2018-05-05] MEDS: Furosemide 20 MG Tablet PO SCH (08:48)
[2018-05-05] MEDS: Finasteride 5 MG Tablet PO SCH (08:48)
[2018-05-05] MEDS: Lactobacillus Acidophilus/L. Spores Tablet PO SCH ×3 (08:48→17:27)
[2018-05-05] MEDS: Lisinopril 20 MG Tablet PO SCH (08:49)
[2018-05-05] MEDS: amLODIPine 5 MG Tablet PO SCH ×2 (08:49→21:27)
[2018-05-05] MEDS: Polymyxin/Trimethop Opth Drops 10 ML Bottle RIGHT EYE SCH ×3 (08:50→18:00)
[2018-05-05] MEDS: Insulin Detemir Inj 1,000 UNIT/10 ML Vial SQ SCH (09:59)
--- NOTE | 2018-05-05 12:36 | MP ---
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 He underwent incision and drainage with debridement and had a wound VAC placed on the area. He has had a wound VAC at home that has not been functioning properly and has had issues with it having to be replaced and the bandages not remaining adherent to the skin, as well as other failures of his equipment that he has made very clear to both his insurance and the company that is providing the equipment. I saw him in the clinic and discussed with him that we needed to take a bone biopsy, since there was noted to be some necrotic capsule to the medial aspect of the first metatarsal head area, in order to determine what his further treatment plan would be. He agreed to move forward with irrigation and debridement of ulcer and bone, right foot and bone biopsy, right foot. He was seen in preoperative holding by myself, nursing staff and anesthesia where the correct patient, side, and site were all confirmed to be correct in the right foot. He was then taken to the surgical suite in supine position. Right foot was prepped and draped in normal sterile fashion, after a timeout per facility protocol. There was noted to be a granular wound over the medial and plantar aspect of first metatarsophalangeal joint with a central necrotic area over the medial first metatarsophalangeal joint capsule that represented approximately 1 cm diameter area. The entire wound measured approximately 4 x 3.2 x 0.5 cm. The necrotic tissue was located, debrided excisionally with a 15 blade, and sent for culture. Bone was also removed from the underlying bone at the medial eminence of the first metatarsal head and sent for both culture and bone biopsy to pathology. Excisional debridement was also performed of the remainder of the wound, fibrotic tissue with 15 blade down to healthy clean granular tissue, followed by irrigation with normal saline and application of a small ring wound VAC after nonadherent Adaptic was applied to the wound overall. . Wound VAC was then set at 125 mmHg medium continuous. The patient tolerated the procedure and anesthesia well without complications and was taken back to PACU with vital signs stable and vascular status intact to the right foot. He will be nonweightbearing to the right foot. We will await the bone biopsy and cultures to determine further treatment. SHORT OPERATIVE NOTE SURGEON: Ofelia Layne DPM MAILROOM SUPERVISOR: Staff. PREOPERATIVE DIAGNOSES: 1. Diabetic infection, right foot, with ulcer. 2. Osteomyelitis. POSTOPERATIVE DIAGNOSES: 1. Diabetic infection, right foot, with ulcer. 2. Osteomyelitis. PROCEDURE: Irrigation and debridement of ulcer and bone, right foot, bone biopsy right foot. PATHOLOGY: 1. Culture right foot. 2. Culture bone, right first metatarsal head. 3. Biopsy of bone, right first metatarsal. ESTIMATED BLOOD LOSS: 10 mL. ANESTHESIA: General endotracheal anesthesia plus local consisting of 10 mL of 0.5% Marcaine plain. SPECIMENS: None. CONDITION: Stable to PACU. DISPOSITION: Nonweightbearing right foot. Await bone biopsy and culture results to determine further treatment. JEANINE Bowers/nadege , 09:16 AM , 09:25 AM
[2018-05-05] MEDS: Sodium Chloride 0.9% 2 ML Flush BID IV.FLUSH SCH ×2 (14:04→21:27)
--- NOTE | 2018-05-05 14:55 | P.PNIM ---
Subjective Interval history: Patient reports he is feeling okay today. Pain control. Afebrile. Physical Exam Vital signs: Vital Signs 05/04/18 16:00 05/04/18 20:00 05/04/18 23:39 Temperature 98.1 F 97.5 F L Pulse Rate 53 L 55 L Respiratory Rate 20 20 18 Blood Pressure 144/72 H 156/74 H Pulse Oximetry 99 97 05/05/18 00:00 05/05/18 00:45 05/05/18 04:00 Temperature 97.8 F 97.8 F Pulse Rate 54 L 73 Respiratory Rate 20 17 20 Blood Pressure 150/70 H 134/59 L Pulse Oximetry 98 94 L 05/05/18 08:00 05/05/18 12:00 Temperature 98.2 F 98.7 F Pulse Rate 58 L 56 L Respiratory Rate 20 20 Blood Pressure 138/66 111/56 L Pulse Oximetry 96 96 Intake & Output 05/04/18 05/05/18 05/05/18 18:59 06:59 18:59 Intake Total 100 / 100 200 / 200 Balance 100 / 100 200 / 200 Weight 72.3 kg Intake: IV 100 / 100 200 / 200 Maxipime Inj 2,000 MG In NS Inj 100 / 100 200 / 200 100 ML @ 200 mls/hr IV.SIG Q12H [facility] Rx#:[id number] Other: Mode Setting Right Posterior Foot Continuous Continuous # Voids 1 Date of Last Bowel Movement 05/04/18 Narrative: Gen.: Well-nourished well-developed white male no acute distress Respiratory: Lungs clear to auscultation bilaterally. No wheezes or rhonchi. Abdomen: Soft, nontender, nondistended. Musculoskeletal: Bilateral lower extremities with pretibial edema, right leg greater than left. Right foot with wound VAC Results - Labs CBC & Chem 7: 05/04/18 06:00 05/04/18 06:00 Laboratory Results - last 24 hr 05/04/18 05/04/18 05/05/18 17:41 19:49 08:42 POC Glucose 204 H 200 H 103 05/05/18 12:41 POC Glucose 108 Assessment and Plan - Assessment (1) Adjustment disorder Code(s): F43.20 - Adjustment disorder, unspecified Status: Acute (2) Osteomyelitis of right foot Code(s): M86.9 - Osteomyelitis, unspecified Status: Acute (3) Diabetes 1.5, managed as type 2 Code(s): E10.9 - Type 1 diabetes mellitus without complications Status: Chronic (4) CKD stage 3 due to type 2 diabetes mellitus Code(s): E11.22 - Type 2 diabetes mellitus with diabetic chronic kidney disease ; N18.3 - Chronic kidney disease, stage 3 (moderate) Status: Acute - Plan 63-year-old male with past medical history significant for hypertension, diabetes mellitus, coronary artery disease and hyperlipidemia presents to the emergency department for a scheduled bone biopsy of his right foot with Dr. Layne. History of Right foot osteomyelitis Hx of incision and drainage of right foot 02/16/2018 and right foot redebridement 02/19 Patient with known MRSA osteomyelitis, admitted at the recommendation of his chief executive officer for bone biopsy Foot x-ray significant for bony erosive changes at the distal medial aspect of the first metatarsal most characteristic of osteomyelitis Patient's ID provider Dr. Betancur has stopped his Zyvox 5 days ago prior to admission and requested a bone biopsy. Final cultures from bone biopsy show Pseudomonas, E. coli, enterococcus faecalis VRE, infectious disease Dr. Lei consulted and recommending Zyvox and cefepime IV twice daily for 2 more weeks, path from the bone biopsy showed chronic osteomyelitis. MRI of the right foot also reviewed which showed interval development of bone marrow edema characteristic of osteomyelitis involving the distal first metatarsal No further surgical intervention from podiatry and recommended continue antibiotics and wound VAC changes. Case management working on obtaining wound VAC for home health. -Wound VAC change Sunday, Sunday, Sunday. Discussed with patient that the floor RN is qualified and trained to change the wound VAC. - Awaiting for arrangement for wound vac at home. Likely tomorrow. Nausea and vomiting: Likely secondary to medication side effect. May have gastroparesis. Symptoms significantly improved. -Nominal x-ray unremarkable except for some stool in the colon. Antiemetics and stool softener as needed. Coronary artery disease Status post CABG -Continue aspirin, continue BB Diabetes mellitus, type II, Uncontrolled, insulin dependent with nephropathy Blood glucose elevated and still uncontrolled -Sliding-scale insulin -Continue Levemir to 30 units SQ daily Preprandial NovoLog 4 units p.o. 3 times daily Hypertension/hyperlipidemiablood pressure better controlled -Continue Prinivil, Lopressor, Lasix, Norvasc, and hydralazine -continue Lipitor CKD (stage III) -Monitor renal function, stable today -continue to monitor on antibiotics. -avoid nephrotoxic agents History of prosthetic valve replacement -Had recent echo -stable, continue medical management, continue with Lopressor, Lasix Hx of urinary retention -continue Flomax. Anemia, chronic Likely due to CKD -monitor HH which has remained stable. Diarrhea, resolved. DVT prophylaxis with heparin subcu twice daily Discharge Planning: Need to set up wound VAC and home antibiotics with home health. Case management assisting.
[2018-05-06] MEDS: oxyCODONE/Acetaminophen 10/325 Tablet PO PRN (02:43)
[2018-05-06] MEDS: Heparin - SQ 10,000 UNITS/ML Vial SQ SCH ×2 (05:04→17:00)
[2018-05-06 05:24] LABS: Hematocrit 24.5 % (39.0-51.0); Hemoglobin 8.3 gm/dL (13.0-17.0); Mean Corpuscular HGB Conc 33.7 % (32.0-36.0); Mean Corpuscular Hemoglobin 28.6 pg (27.0-34.0); Mean Corpuscular Volume 84.7 fL (80.0-100.0); Mean Platelet Volume 8.4 fL (7.0-11.0); Platelet Count 147 th/mm3 (150-450); Red Blood Count 2.89 mil/mm3 (4.50-5.90); Red Cell Distribution Width 16.8 % (11.6-17.2); White Blood Count 5.8 th/mm3 (4.0-11.0)
[2018-05-06 05:55] LABS: Calcium 8.3 mg/dL (8.5-10.1); Carbon Dioxide 24.9 meq/L (21.0-32.0)
[2018-05-06] MEDS: Linezolid 600 MG Tablet PO SCH ×2 (09:00→21:46)
[2018-05-06] MEDS: Insulin NovoLOG Aspart Correctional Sugar Inj SQ SCH ×7 (09:06→21:49)
[2018-05-06] MEDS: Insulin Detemir Inj 1,000 UNIT/10 ML Vial SQ SCH (09:08)
[2018-05-06] MEDS: Lisinopril 20 MG Tablet PO SCH (09:10)
[2018-05-06] MEDS: Lactobacillus Acidophilus/L. Spores Tablet PO SCH ×3 (09:10→18:00)
[2018-05-06] MEDS: Metoprolol Tartrate 25 MG Tablet PO SCH ×2 (09:10→21:46)
[2018-05-06] MEDS: hydrALAZINE 10 MG Tablet PO SCH ×3 (09:10→17:00)
[2018-05-06] MEDS: amLODIPine 5 MG Tablet PO SCH ×2 (09:10→21:46)
[2018-05-06] MEDS: Furosemide 20 MG Tablet PO SCH (09:10)
[2018-05-06] MEDS: Sodium Chloride 0.9% 2 ML Flush BID IV.FLUSH SCH ×2 (09:11→21:52)
[2018-05-06] MEDS: Finasteride 5 MG Tablet PO SCH (09:17)
[2018-05-06] MEDS: Polymyxin/Trimethop Opth Drops 10 ML Bottle RIGHT EYE SCH (09:17)
[2018-05-06 13:14] LABS: Hemoglobin A1c 7.5 % (4.3-6.0)
--- NOTE | 2018-05-06 17:05 | P.PNIM ---
Subjective Interval history: Patient expressing frustration that his insurance company has not approved wound VAC for home. He is requesting clarification from paving and surfacing labourer that bedside nursing are capable of changing his wound VAC. Physical Exam Vital signs: Vital Signs 05/05/18 20:00 05/05/18 22:30 05/06/18 00:00 Temperature 97.3 F L 97.5 F L Pulse Rate 57 L 63 Respiratory Rate 18 18 20 Blood Pressure 127/62 144/66 H Pulse Oximetry 98 98 05/06/18 01:30 05/06/18 03:30 05/06/18 04:00 Temperature 97.8 F Pulse Rate 62 Respiratory Rate 18 18 18 Blood Pressure 134/62 Pulse Oximetry 98 05/06/18 08:00 05/06/18 12:00 Temperature 97.7 F 97.4 F L Pulse Rate 64 60 Respiratory Rate 18 16 Blood Pressure 138/65 139/65 Pulse Oximetry 95 97 Intake & Output 05/05/18 05/06/18 05/06/18 18:59 06:59 18:59 Intake Total 1070 / 1070 100 / 100 Output Total Balance 1060 / 1060 100 / 100 Weight 99.2 kg Intake: IV 100 / 100 100 / 100 Maxipime Inj 2,000 MG In NS Inj 100 / 100 100 / 100 100 ML @ 200 mls/hr IV.SIG Q12H [facility] Rx#:[id number] Oral 220 / 220 Other 750 / 750 Output: Estimated Blood Loss 10 10 Other: Mode Setting Right Posterior Foot Continuous Continuous Other Intake Source Saline Solution # Voids 1 2 # Incontinent Voids 1 Date of Last Bowel Movement 05/04/18 # Bowel Movements 1 Narrative: Gen.: Well-nourished well-developed white male no acute distress Musculoskeletal: Bilateral lower extremities with pretibial edema, right leg greater than left. Right foot with wound VAC Results - Labs CBC & Chem 7: 05/06/18 05:00 05/06/18 05:00 Laboratory Results - last 24 hr 05/05/18 05/05/18 05/06/18 17:33 21:26 05:00 WBC 5.8 RBC 2.89 L Hgb 8.3 L Hct 24.5 L MCV 84.7 MCH 28.6 MCHC 33.7 RDW 16.8 Plt Count 147 L MPV 8.4 Sodium Potassium Chloride Carbon Dioxide Anion Gap BUN Creatinine Estimated GFR POC Glucose 110 207 H Random Glucose Calcium 05/06/18 05/06/18 05/06/18 05:00 08:25 13:00 WBC RBC Hgb Hct MCV MCH MCHC RDW Plt Count MPV Sodium 139 Potassium 5.0 Chloride 107 Carbon Dioxide 24.9 Anion Gap 7 BUN 37 H Creatinine 2.10 H Estimated GFR 32 L POC Glucose 186 H 128 H Random Glucose 156 H Calcium 8.3 L Assessment and Plan - Assessment (1) Adjustment disorder Code(s): F43.20 - Adjustment disorder, unspecified Status: Acute (2) Osteomyelitis of right foot Code(s): M86.9 - Osteomyelitis, unspecified Status: Acute (3) Diabetes 1.5, managed as type 2 Code(s): E10.9 - Type 1 diabetes mellitus without complications Status: Chronic (4) CKD stage 3 due to type 2 diabetes mellitus Code(s): E11.22 - Type 2 diabetes mellitus with diabetic chronic kidney disease ; N18.3 - Chronic kidney disease, stage 3 (moderate) Status: Acute - Plan 63-year-old male with past medical history significant for hypertension, diabetes mellitus, coronary artery disease and hyperlipidemia presents to the emergency department for a scheduled bone biopsy of his right foot with Dr. Layne. History of Right foot osteomyelitis Hx of incision and drainage of right foot 02/16/2018 and right foot redebridement 02/19 Patient with known MRSA osteomyelitis, admitted at the recommendation of his paving and surfacing labourer for bone biopsy Foot x-ray significant for bony erosive changes at the distal medial aspect of the first metatarsal most characteristic of osteomyelitis Patient's ID provider Dr. Betancur has stopped his Zyvox 5 days ago prior to admission and requested a bone biopsy. Final cultures from bone biopsy show Pseudomonas, E. coli, enterococcus faecalis VRE, infectious disease Dr. Lei consulted and recommending Zyvox and cefepime IV twice daily for 2 more weeks, path from the bone biopsy showed chronic osteomyelitis. MRI of the right foot also reviewed which showed interval development of bone marrow edema characteristic of osteomyelitis involving the distal first metatarsal No further surgical intervention from podiatry and recommended continue antibiotics and wound VAC changes. Case management working on obtaining wound VAC for home health. -Wound VAC change Sunday, Sunday, Sunday. Discussed with patient that the floor RN is qualified and trained to change the wound VAC. -Podiatry will follow up today and provide clarification for the patient as well. Awaiting for arrangement for wound vac at home. -Clinically the patient is stable for discharge home once wound VAC and antibiotics can be arranged. - ID will follow up Nausea and vomiting: Resolved. May have gastroparesis. Symptoms significantly improved. -Nominal x-ray unremarkable except for some stool in the colon. Antiemetics and stool softener as needed. Coronary artery disease Status post CABG -Continue aspirin, continue BB Diabetes mellitus, type II, insulin dependent with nephropathy Blood glucose better controlled. -Sliding-scale insulin -Continue Levemir to 30 units SQ daily Preprandial NovoLog 4 units p.o. 3 times daily Hemoglobin A1c is pending. Hypertension/hyperlipidemiablood pressure better controlled -Continue Prinivil, Lopressor, Lasix, Norvasc, and hydralazine -continue Lipitor CKD (stage III) -Monitor renal function, stable -avoid nephrotoxic agents History of prosthetic valve replacement -Had recent echo -stable, continue medical management, continue with Lopressor, Lasix Hx of urinary retention -continue Flomax. Anemia, chronic Likely due to CKD -monitor HH which has remained stable. Diarrhea, resolved. DVT prophylaxis with heparin subcu twice daily Discharge Planning: Need to set up wound VAC and home antibiotics with home health. Case management assisting.
--- NOTE | 2018-05-06 18:26 | P.PNPOD ---
Physical Exam Vital signs: Vital Signs 05/05/18 20:00 05/05/18 22:30 05/06/18 00:00 Temperature 97.3 F L 97.5 F L Pulse Rate 57 L 63 Respiratory Rate 18 18 20 Blood Pressure 127/62 144/66 H Pulse Oximetry 98 98 05/06/18 01:30 05/06/18 03:30 05/06/18 04:00 Temperature 97.8 F Pulse Rate 62 Respiratory Rate 18 18 18 Blood Pressure 134/62 Pulse Oximetry 98 05/06/18 08:00 05/06/18 12:00 Temperature 97.7 F 97.4 F L Pulse Rate 64 60 Respiratory Rate 18 16 Blood Pressure 138/65 139/65 Pulse Oximetry 95 97 Intake & Output 05/05/18 05/06/18 05/06/18 18:59 06:59 18:59 Intake Total 1070 / 1070 100 / 100 Output Total 10 / 10 Balance 1060 / 1060 100 / 100 Weight 99.2 kg Intake: IV 100 / 100 100 / 100 Maxipime Inj 2,000 MG In NS Inj 100 / 100 100 / 100 100 ML @ 200 mls/hr IV.SIG Q12H [facility] Rx#:[id number] Oral 220 / 220 Other 750 / 750 Output: Estimated Blood Loss Other: Mode Setting Right Posterior Foot Continuous Continuous Other Intake Source Saline Solution # Voids 1 2 # Incontinent Voids 1 Date of Last Bowel Movement 05/04/18 # Bowel Movements 1 Narrative: right medial foot 1st metatarsal head area with granulation tissue present throughout. No signs of acute infection. see 04/26 procedure note for measurements. Medications and Allergies Active Medications: Active Medications Acetaminophen (Tylenol) 650 mg PO Q4H PRN PRN Reason: Temp > 100.4 Acyclovir (Zovirax 5% Oint) 1 applicatio TOPICAL 5 TIMES A DAY [facility] Stop: 05/08/18 14:36 Last Admin: 05/06/18 05:08 Dose: 1 applicatio Amlodipine Besylate (Norvasc) 5 mg PO BID [facility] Last Admin: 05/06/18 09:10 Dose: 5 mg Aspirin (Aspirin Chew) 81 mg PO DAILY [facility] Last Admin: 05/06/18 09:10 Dose: 81 mg Atorvastatin Calcium (Lipitor) 40 mg PO DAILY [facility] Last Admin: 05/06/18 09:11 Dose: 40 mg Bisacodyl (Dulcolax Supp) 10 mg RECTAL DAILY PRN PRN Reason: SEVERE CONSITIPATION Dextrose (D50w Vial) 50 ml IV.PUSH UNSCH PRN PRN Reason: PER HYPOGLYCEMIA PROTOCOL Enalaprilat (Vasotec Inj) 1.25 mg IV.PUSH Q6H PRN PRN Reason: SBP> 165 or DBP> 90 Last Admin: 04/27/18 23:53 Dose: 1.25 mg Finasteride (Proscar) 5 mg PO DAILY [facility] Last Admin: 05/06/18 09:17 Dose: 5 mg Furosemide (Lasix) 20 mg PO DAILY [facility] Last Admin: 05/06/18 09:10 Dose: 20 mg Glucagon (Glucagon Inj) 1 mg OTHER PRN PRN PRN Reason: for Hypoglycemia Protocol Heparin Sodium (Porcine) (Heparin Inj) 5,000 units SQ Q12H [facility] Last Admin: 05/06/18 05:04 Dose: 5,000 units Hydralazine HCl (Apresoline) 10 mg PO TID [facility] Last Admin: 05/06/18 09:10 Dose: 10 mg Cefepime HCl 2,000 mg/ Sodium (Chloride) 100 mls @ 200 mls/hr IV.SIG Q12H [facility] Last Infusion: 05/06/18 06:20 Dose: Infused Sodium Chloride (Ns Inj) 500 mls @ 30 mls/hr IV.SIG .Q10H [facility] Last Admin: 05/01/18 10:36 Dose: Not Given Insulin Aspart (Novolog Insulin Correctional Sugar Inj) 0 unit SQ ACHS [facility]; Protocol Last Admin: 05/06/18 09:06 Dose: 1 unit Insulin Aspart (Novolog Insulin Correctional Sugar Inj) 4 unit SQ TIDAC [facility]; Protocol Last Admin: 05/06/18 09:08 Dose: 4 unit Insulin Detemir (Levemir Inj) 30 unit SQ DAILY [facility] Last Admin: 05/06/18 09:08 Dose: 30 unit Lactobacillus Acidophilus (Lactinex) 1 tab PO TID [facility] Last Admin: 05/06/18 09:10 Dose: 1 tab Linezolid (Zyvox) 600 mg PO Q12HR [facility] Last Admin: 05/05/18 21:27 Dose: 600 mg Lisinopril (Prinivil) 20 mg PO DAILY [facility] Last Admin: 05/06/18 09:10 Dose: 20 mg Metoprolol Tartrate (Lopressor) 25 mg PO BID [facility] Last Admin: 05/06/18 09:10 Dose: 25 mg Oxycodone/Acetaminophen (Percocet 10/325 Mg) 1 tab PO Q4H PRN PRN Reason: PAIN SCALE 6 TO 10 Last Admin: 05/06/18 02:43 Dose: 1 tab Pantoprazole Sodium (Protonix) 40 mg PO DAILY [facility] Last Admin: 05/05/18 08:47 Dose: 40 mg Promethazine HCl (Phenergan) 25 mg PO Q6H PRN PRN Reason: Nausea Last Admin: 05/05/18 21:27 Dose: 25 mg Sennosides (Senokot) 17.2 mg PO Q12H PRN PRN Reason: Moderate Constipation Sodium Chloride (Ns Flush) 2 ml IV.FLUSH BID [facility] Last Admin: 05/06/18 09:11 Dose: 2 ml Sodium Chloride (Ns Flush) 2 ml IV.FLUSH PRN PRN PRN Reason: FLUSH AFTER USING IV ACCESS Tamsulosin HCl (Flomax) 0.4 mg PO DAILY [facility] Last Admin: 05/06/18 09:10 Dose: 0.4 mg Zolpidem Tartrate (Ambien) 5 mg PO HS PRN PRN Reason: INSOMNIA Allergies Allergy/AdvReac Type Severity Reaction Status Date / Time bee venom protein (honey bee) Allergy Anaphylaxis Verified 04/25/18 16:15 Home Medications Medication Instructions Recorded Confirmed Type amlodipine 5 mg PO DAILY 04/25/18 04/25/18 History aspirin 81 mg PO DAILY 04/25/18 04/25/18 History atorvastatin 40 mg PO DAILY 04/25/18 04/25/18 History baclofen 10 mg PO TID 04/25/18 04/25/18 History finasteride 5 mg PO DAILY 04/25/18 04/25/18 History furosemide 20 mg PO DAILY 04/25/18 04/25/18 History hydrocodone-acetaminophen 1 tab PO Q4H 04/25/18 04/25/18 History insulin degludec [Tresiba 12 unit SUBCUT DAILY 04/25/18 04/25/18 History FlexTouch U-100] linezolid [Zyvox] 600 mg PO BID 04/25/18 04/25/18 History lisinopril 20 mg PO DAILY 04/25/18 04/25/18 History metoprolol tartrate 25 mg PO BID 04/25/18 04/25/18 History pantoprazole 40 mg PO DAILY 04/25/18 04/25/18 History promethazine 25 mg PO Q6H PRN 04/25/18 04/25/18 History tamsulosin 0.4 mg PO DAILY 04/25/18 04/25/18 History Results - Labs CBC & Chem 7: 05/06/18 05:00 05/06/18 05:00 Laboratory Results - last 24 hr 05/05/18 05/05/18 05/06/18 14:20 21:26 05:00 WBC 5.8 RBC 2.89 L Hgb 8.3 L Hct 24.5 L MCV 84.7 MCH 28.6 MCHC 33.7 RDW 16.8 Plt Count 147 L MPV 8.4 Sodium Potassium Chloride Carbon Dioxide Anion Gap BUN Creatinine Estimated GFR POC Glucose 207 H Random Glucose Hemoglobin A1c 7.5 H Calcium 05/06/18 05/06/18 05/06/18 05:00 08:25 13:00 WBC RBC Hgb Hct MCV MCH MCHC RDW Plt Count MPV Sodium 139 Potassium 5.0 Chloride 107 Carbon Dioxide 24.9 Anion Gap 7 BUN 37 H Creatinine 2.10 H Estimated GFR 32 L POC Glucose 186 H 128 H Random Glucose 156 H Hemoglobin A1c Calcium 8.3 L 05/06/18 18:05 WBC RBC Hgb Hct MCV MCH MCHC RDW Plt Count MPV Sodium Potassium Chloride Carbon Dioxide Anion Gap BUN Creatinine Estimated GFR POC Glucose 88 Random Glucose Hemoglobin A1c Calcium Assessment and Plan - Assessment (1) Diabetic infection of right foot Code(s): E11.628 - Type 2 diabetes mellitus with other skin complications; L08.9 - Local infection of the skin and subcutaneous tissue, unspecified Status: Acute (2) Osteomyelitis of right foot Code(s): M86.9 - Osteomyelitis, unspecified Status: Acute - Plan Osteomyelitis, diabetic foot infection right foot. s/p Irrigation and debridement of ulcer/bone right foot and bone biopsy right foot PLAN: Please discharge patient as soon as possible, as he is frustrated with being here and being extremely difficult with both nursing staff, physicians, and aggressive to his spouse in front of staff. Continue M/W/F vac changes while in-house PER NURSING STAFF (wound care nurse NOT required to change this simple vac dressing) Bone biopsy showing chronic osteomyelitis Discussed with patient to continue current new IV antibiotics per new cultures and hyperbaric oxygen with continued wound vac to foot and possible graft in the future. Ok with discharge home with [facility] wound vac M/W/F per home health nursing He will be following up in my clinic in 2-3 weeks to assess wound, but also will be seeing wound care center [facility] for further care regarding hyperbarics. Will discuss case with Dr Recinos
[2018-05-07] MEDS: Heparin - SQ 10,000 UNITS/ML Vial SQ SCH ×2 (04:03→18:37)
[2018-05-07] MEDS: oxyCODONE/Acetaminophen 10/325 Tablet PO PRN ×4 (04:04→22:31)
[2018-05-07 08:15] LABS: Hematocrit 25.9 % (39.0-51.0); Mean Corpuscular HGB Conc 34.7 % (32.0-36.0); Mean Corpuscular Hemoglobin 29.3 pg (27.0-34.0); Mean Corpuscular Volume 84.2 fL (80.0-100.0); Mean Platelet Volume 8.6 fL (7.0-11.0); Platelet Count 165 th/mm3 (150-450); Red Blood Count 3.08 mil/mm3 (4.50-5.90); Red Cell Distribution Width 17.1 % (11.6-17.2); White Blood Count 6.8 th/mm3 (4.0-11.0)
[2018-05-07 08:16] LABS: Calcium 8.7 mg/dL (8.5-10.1); Carbon Dioxide 22.6 meq/L (21.0-32.0); Potassium 5.2 meq/L (3.5-5.1)
[2018-05-07] MEDS: Insulin NovoLOG Aspart Correctional Sugar Inj SQ SCH ×7 (09:21→22:34)
[2018-05-07] MEDS: Furosemide 20 MG Tablet PO SCH (09:21)
[2018-05-07] MEDS: Lactobacillus Acidophilus/L. Spores Tablet PO SCH ×3 (09:21→18:37)
[2018-05-07] MEDS: Metoprolol Tartrate 25 MG Tablet PO SCH ×2 (09:21→22:32)
[2018-05-07] MEDS: amLODIPine 5 MG Tablet PO SCH ×2 (09:21→22:31)
[2018-05-07] MEDS: hydrALAZINE 10 MG Tablet PO SCH ×3 (09:22→18:37)
[2018-05-07] MEDS: Lisinopril 20 MG Tablet PO SCH (09:23)
[2018-05-07] MEDS: Insulin Detemir Inj 1,000 UNIT/10 ML Vial SQ SCH (09:23)
[2018-05-07] MEDS: Finasteride 5 MG Tablet PO SCH (09:23)
[2018-05-07] MEDS: Linezolid 600 MG Tablet PO SCH ×2 (09:23→22:31)
--- NOTE | 2018-05-07 11:36 | P.DCO ---
Post Hospital Infusion Therapy - Infusion Therapy Location of Infusion Therapy: Home Health Care IV Infusion Order - Patient Information Patient Weight: 99.2 kg - Administer Medication Cefepime Dose: 2 grams IV Directions: q 12 hours Stop Treatment: 05/14/18 - Additional Information Venous Access: PICC Line Additional Instructions: [x] Peripheral flush and dressing changes per protocol [x] Implanted port and central milliner helper: * Implanted port: 10 ml Normal Saline followed by 5 ml Heparin 100 units/ml Heparin flush after each use and monthly to maintain. [] May leave port accessed during therapy. [] May leave peripheral site accessed for duration of therapy. [x] If patient has SOB or respiratory distress, check oxygen saturation. If less than 90% or clinical signs of respiratory distress, administer oxygen at 2 L/min. via nasal cannula and notify physician. [x] Anaphylaxis/Reaction orders: * Stop infusion. * Keep IV line open with saline flush. * Notify physician. * Monitor vital signs every 15 minutes until symptoms resolve. * Check Oxygen saturation; Oxygen at 2 L/min. via nasal cannula if less than 90% or clinical signs of respiratory distress. * Administer diphenhydramine (Benadryl) 25 mg IV STAT, (unless patient has received as pre-med). May repeat once, if necessary. * Solu-Cortef 250 mg IVP over 30-60 seconds, use 100 mg vials for each dissolution. * Epinephrine (1mg/1 ml) 0.3 mg subcutaneously or IVP now with any signs of respiratory distress. * Check with physician for new additional pre-med orders if patient is re- challenged or re-treated. [x] May remove PICC line when treatment complete, after confirming with Physician. [x] If the patient is admitted to the hospital, the ED, or transferred via [facility] , complete transfer form including medication reconciliation order sheet. Weekly Labs: CBC w/diff Additional Information: Follow up with Dr. Betancur for infectious disease in 1 week. - Case Management Consult Case Management Consult-IVF: Yes - Patient Information Allergies bee venom protein (honey bee) Allergy (Verified 04/25/18 16:15) Anaphylaxis
--- NOTE | 2018-05-07 11:43 | P.PNID ---
Subjective Remarks: Patient complaining of nausea and vomiting. States that he vomited this morning. Afebrile. 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 Bone tissue culture has no growth. This is a 63-year-old white male who has had a history of right foot infection, which has been treated with antibiotics for some time. The patient was on IV antibiotics for MRSA with vancomycin and then was changed to Zyvox. He was taken off antibiotics a week ago and saw the nonprofit fundraiser and was sent to the hospital for further evaluation. This consultation is requested for infection management. Past Medical History: PAST MEDICAL HISTORY: Diabetes mellitus, hypertension, coronary artery disease, aortic valve replacement 3 years ago. PAST SURGICAL HISTORY: History of foot surgery, coronary artery bypass graft surgery x3. Allergies/Adverse Reactions: Allergies bee venom protein (honey bee) Allergy (Verified 04/25/18 16:15) Anaphylaxis Objective Vital Signs 05/06/18 12:00 05/06/18 16:00 05/06/18 20:00 Temperature 97.4 F L 97.8 F 98.2 F Pulse Rate 60 66 64 Respiratory Rate 16 18 20 Blood Pressure 139/65 156/73 H 185/84 H Pulse Oximetry 97 98 97 05/07/18 00:00 05/07/18 04:00 05/07/18 08:00 Temperature 97.8 F 98.0 F 97.5 F L Pulse Rate 55 L 62 62 Respiratory Rate 20 20 20 Blood Pressure 152/74 H 154/72 H 156/76 H Pulse Oximetry 96 98 97 Intake & Output 05/06/18 05/07/18 05/07/18 18:59 06:59 18:59 Intake Total 1070 / 1070 Output Total Balance 1060 / 1060 Weight 99.2 kg 99.2 kg Intake: IV 100 / 100 Maxipime Inj 2,000 MG In NS Inj 100 / 100 100 ML @ 200 mls/hr IV.SIG Q12H JENNIFER Rx#:[id number] Oral 220 / 220 Other 750 / 750 Output: Estimated Blood Loss Other: Mode Setting Right Posterior Foot Continuous Continuous Other Intake Source Saline Solution # Voids 2 2 # Incontinent Voids 1 Date of Last Bowel Movement 05/04/18 05/06/18 # Bowel Movements 1 Lab - Hematology Results 05/06/18 05/07/18 05:00 07:36 WBC 5.8 6.8 RBC 2.89 L 3.08 L Hgb 8.3 L 9.0 L Hct 24.5 L 25.9 L MCV 84.7 84.2 MCH 28.6 29.3 MCHC 33.7 34.7 RDW 16.8 17.1 Plt Count 147 L 165 MPV 8.4 8.6 Lab - Chemistry Results 05/05/18 05/05/18 05/05/18 12:41 14:20 17:33 Sodium Potassium Chloride Carbon Dioxide Anion Gap BUN Creatinine Estimated GFR POC Glucose 108 110 Random Glucose Hemoglobin A1c 7.5 H Calcium 05/05/18 05/06/18 05/06/18 21:26 05:00 08:25 Sodium 139 Potassium 5.0 Chloride 107 Carbon Dioxide 24.9 Anion Gap 7 BUN 37 H Creatinine 2.10 H Estimated GFR 32 L POC Glucose 207 H 186 H Random Glucose 156 H Hemoglobin A1c Calcium 8.3 L 05/06/18 05/06/18 05/06/18 13:00 18:05 20:13 Sodium Potassium Chloride Carbon Dioxide Anion Gap BUN Creatinine Estimated GFR POC Glucose 128 H 88 91 Random Glucose Hemoglobin A1c Calcium 05/07/18 05/07/18 07:30 07:36 Sodium 140 Potassium 5.2 H Chloride 110 H Carbon Dioxide 22.6 Anion Gap 7 BUN 37 H Creatinine 1.88 H Estimated GFR 36 L POC Glucose 117 H Random Glucose 106 Hemoglobin A1c Calcium 8.7 Imaging: ITS Impressions Chest X-Ray 04/25/18 21:11 CONCLUSION: No infiltrates seen. Foot X-Ray 04/25/18 21:11 CONCLUSION: Bony erosive changes at the distal medial aspect of the first metatarsal and probably the medial sesamoid at the MTP most characteristic of osteomyelitis with overlying soft tissue swelling. There is periarticular osteopenia in the right foot as well. Foot MRI 04/30/18 00:00 CONCLUSION: 1. Interval development of bone marrow edema, cortical erosion and abnormal enhancement involving the distal first metatarsal characteristic of osteomyelitis. 2. Moderate joint effusion of the first metatarsophalangeal joint which may represent septic arthritis. 3. Bone marrow edema at the base of the proximal phalanx of the great toe which may represent reactive changes or early osteomyelitis. 4. Extensive soft tissue swelling throughout the forefoot with possible tract extending from medial forefoot wound to first metatarsophalangeal joint. Abdomen X-Ray 05/02/18 00:00 CONCLUSION: Benign-appearing abdomen. Considerable stool in the colon. Physical Exam: PHYSICAL EXAM: GENERAL: No acute distress. Awake and alert and oriented. HEENT: Head is atraumatic. Extraocular movements are grossly intact. Pupils reactive to light. No icterus. NECK: Supple without adenopathy. LUNGS: Clear to auscultation. HEART: Regular rate and rhythm without murmurs, rubs or gallops. ABDOMEN: Bowel sounds present. Soft. No tenderness. EXTREMITIES: Right foot has a surgical dressing in place with wound VAC, which has serosanguineous drainage at the wound bed. SKIN: No diffuse rash. NEUROLOGIC: No gross focal findings. PSYCHIATRIC: Calm and cooperative. Assessment and Plan - Plan IMPRESSION: 1. Chronic wound infection of the right foot with osteomyelitis of the first metatarsal. Bone tissue culture has no growth. Wound of the right foot. Culture has VRE and Pseudomonas and E. coli. 2. Diabetes mellitus. RECOMMENDATIONS: 1. Continue Zyvox p.o. for the VRE x 2 weeks until 05/14/2018. Monitor platelet count while on Zyvox. 2. Continue cefepime for pseudomonas and E. coli for 2 weeks until 05/14/2018. Orders written for outpatient antibiotics. Give a 2-week course of antibiotic treatment and after that he can start hyperbaric treatments. Approved for hyperbaric treatments already. Follow up with Dr. Betancur for infectious disease management after discharge.
[2018-05-07] MEDS: Sodium Chloride 0.9% 2 ML Flush BID IV.FLUSH SCH ×2 (14:06→22:32)
--- NOTE | 2018-05-07 15:14 | P.PNIM ---
Subjective Interval history: Patient reports he is not feeling well today. He complains of nausea and one episode of vomiting earlier. He could not tolerate lunch. He is having a hard time telling me about his GI history. At one point he states that he never has any GI problem but then later admitted that he believed he had a gastric emptying study at some point. Physical Exam Vital signs: Vital Signs 05/06/18 16:00 05/06/18 20:00 05/07/18 00:00 Temperature 97.8 F 98.2 F 97.8 F Pulse Rate 66 64 55 L Respiratory Rate 18 20 20 Blood Pressure 156/73 H 185/84 H 152/74 H Pulse Oximetry 98 97 96 05/07/18 04:00 05/07/18 08:00 05/07/18 12:00 Temperature 98.0 F 97.5 F L 98.0 F Pulse Rate 62 62 58 L Respiratory Rate 20 20 20 Blood Pressure 154/72 H 156/76 H 179/76 H Pulse Oximetry 98 97 94 L Intake & Output 05/06/18 05/07/18 05/07/18 18:59 06:59 18:59 Intake Total 1070 / 1070 Output Total 10 Balance 1060 / 1060 Weight 99.2 kg 99.2 kg Intake: IV 100 / 100 Maxipime Inj 2,000 MG In NS Inj 100 / 100 100 ML @ 200 mls/hr IV.SIG Q12H JENNIFER Rx#:[id number] Oral 220 / 220 Other 750 / 750 Output: Estimated Blood Loss 10 10 Other: Mode Setting Right Posterior Foot Continuous Continuous Continuous Other Intake Source Saline Solution # Voids 2 2 # Incontinent Voids 1 Date of Last Bowel Movement 05/04/18 05/06/18 05/06/18 # Bowel Movements 1 Narrative: Gen.: Well-nourished well-developed white male no acute distress Musculoskeletal: Bilateral lower extremities with pretibial edema, right leg greater than left. Right foot with wound VAC Abdomen: Soft, non tender, non distended. Results - Labs CBC & Chem 7: 05/07/18 07:36 05/07/18 11:00 Laboratory Results - last 24 hr 05/05/18 05/06/18 05/06/18 14:20 18:05 20:13 WBC RBC Hgb Hct MCV MCH MCHC RDW Plt Count MPV Sodium Potassium Chloride Carbon Dioxide Anion Gap BUN Creatinine Estimated GFR POC Glucose 88 91 Random Glucose Hemoglobin A1c 7.5 H Calcium 05/07/18 05/07/18 05/07/18 07:30 07:36 07:36 WBC 6.8 RBC 3.08 L Hgb 9.0 L Hct 25.9 L MCV 84.2 MCH 29.3 MCHC 34.7 RDW 17.1 Plt Count 165 MPV 8.6 Sodium 140 Potassium 5.2 H Chloride 110 H Carbon Dioxide 22.6 Anion Gap 7 BUN 37 H Creatinine 1.88 H Estimated GFR 36 L POC Glucose 117 H Random Glucose 106 Hemoglobin A1c Calcium 8.7 05/07/18 05/07/18 11:00 12:13 WBC RBC Hgb Hct MCV MCH MCHC RDW Plt Count MPV Sodium Potassium 5.3 H Chloride Carbon Dioxide Anion Gap BUN Creatinine Estimated GFR POC Glucose 128 H Random Glucose Hemoglobin A1c Calcium Assessment and Plan - Assessment (1) Adjustment disorder Code(s): F43.20 - Adjustment disorder, unspecified Status: Acute (2) Osteomyelitis of right foot Code(s): M86.9 - Osteomyelitis, unspecified Status: Acute (3) Diabetes 1.5, managed as type 2 Code(s): E10.9 - Type 1 diabetes mellitus without complications Status: Chronic (4) CKD stage 3 due to type 2 diabetes mellitus Code(s): E11.22 - Type 2 diabetes mellitus with diabetic chronic kidney disease ; N18.3 - Chronic kidney disease, stage 3 (moderate) Status: Acute - Plan 63-year-old male with past medical history significant for hypertension, diabetes mellitus, coronary artery disease and hyperlipidemia presents to the emergency department for a scheduled bone biopsy of his right foot with Dr. Layne. History of Right foot osteomyelitis Hx of incision and drainage of right foot 02/16/2018 and right foot redebridement 02/19 Patient with known MRSA osteomyelitis, admitted at the recommendation of his precision lens grinder for bone biopsy Foot x-ray significant for bony erosive changes at the distal medial aspect of the first metatarsal most characteristic of osteomyelitis Patient's ID provider Dr. Betancur has stopped his Zyvox 5 days ago prior to admission and requested a bone biopsy. Final cultures from bone biopsy show Pseudomonas, E. coli, enterococcus faecalis VRE, infectious disease Dr. Lei consulted and recommending Zyvox and cefepime IV twice daily for 2 more weeks, path from the bone biopsy showed chronic osteomyelitis. MRI of the right foot also reviewed which showed interval development of bone marrow edema characteristic of osteomyelitis involving the distal first metatarsal No further surgical intervention from podiatry and recommended continue antibiotics and wound VAC changes. Case management working on obtaining wound VAC for home health. -Wound VAC change Sunday, Sunday, Sunday. Discussed with patient that the floor RN is qualified and trained to change the wound VAC. -Podiatry will follow up today and provide clarification for the patient as well. Awaiting for arrangement for wound vac at home. -The patient is cleared for discharge from infectious disease and podiatry standpoint. Wound VAC and IV antibiotics has been arranged for home Nausea and vomiting: Patient had an episode a few days ago that resolved but he reports that he had one episode of vomiting again today. He states he did not eat much yesterday and had chicken fingers last night. He could not tolerate lunch per his report. May have gastroparesis. -The patient was not clear about his GI history. He tells me that he never had any GI problems but later indicated that he has had a gastric emptying study in the past. -Consult GI for assistance. - Antiemetics. He states Zofran does not work for him. Continue Phenergan PRN. Coronary artery disease Status post CABG -Continue aspirin, continue BB Diabetes mellitus, type II, insulin dependent with nephropathy Blood glucose better controlled. -Sliding-scale insulin -Continue Levemir to 30 units SQ daily Preprandial NovoLog 4 units p.o. 3 times daily Hemoglobin A1c is pending. Hypertension/hyperlipidemiablood pressure better controlled -Continue Prinivil, Lopressor, Lasix, Norvasc, and hydralazine -continue Lipitor CKD (stage III) -Monitor renal function, stable -Mild hyperkalemia. Given reported vomiting, hold off on Kayexalate, repeat labs in a.m. and consider treating if unchanged. -avoid nephrotoxic agents History of prosthetic valve replacement -Had recent echo -stable, continue medical management, continue with Lopressor, Lasix Hx of urinary retention -continue Flomax. Anemia, chronic Likely due to CKD -monitor H&H which has remained stable. Diarrhea, resolved. DVT prophylaxis with heparin subcu twice daily Discharge Planning: Patient was set up for discharge until he reported nausea and vomiting today. GI has been consulted. He can be discharged to home with home health once cleared by GI.
--- NOTE | 2018-05-07 16:00 | P.DCO ---
- Diagnosis (1) Osteomyelitis Status: Acute (2) Renal insufficiency Status: Acute (3) Anxiety Status: Acute (4) Diabetic infection of right foot Status: Acute (5) Osteomyelitis of right foot Status: Acute - Home Health Nursing Order: Medical education, Medication education-adverse effect, Wound care and dressing changes, Nursing assessment with vital signs - Case Management Consult Case Management Consult-Home Health: Yes - Certification I have seen patient Clarence Hendrix on 05/07/18. My clinical findings support the need for the requested home health care services because: Infection with risk of complications I certify that my clinical findings support that this patient is homebound because: Unsteady gait/balance (1) Osteomyelitis Qualifiers: Osteomyelitis type: unspecified type Osteomyelitis location: foot
--- NOTE | 2018-05-07 18:58 | P.CONGI ---
History of Present Illness Consult date: 05/07/18 Consult reason: Nausea vomiting Chief complaint: Osteomyelitis Right Foot History of Present Illness: This patient is a 63-year-old male with past medical history significant for coronary artery disease post CABG, hypertension, diabetes mellitus and hyperlipidemia. Patient currently admitted and being treated for osteomyelitis of the right foot. Patient presented to [facility] under the instruction of his infectious disease doctor to receive IV antibiotics for osteomyelitis. Patient also endorses history of MRSA and VRE. Wound VAC present to the right foot wound. Upon consultation, Patient endorses nausea and vomiting x1 this morning. States that he was given Phenergan without relief. Patient also endorses having mid abdominal tenderness post nausea and vomiting. Patient states pain is constant and rates same at 4 out of 10. Patient denies any present nausea. Patient denies fever or chills. Denies ever having had EGD or colonoscopy in the past. Patient states he is having formed brown stools without any noted bleeding. Denies change in bowel habits. Denies any known family history for gastrointestinal disorders. Denies use of tobacco or alcohol products. Patient denies heartburn, symptoms of acid reflux. Our service has been consulted to evaluate patient for reported nausea and vomiting <Nicolette Melton - Last Filed: 05/07/18 18:47> Review of Systems All other systems reviewed negative except as stated in HPI <Nicolette Melton - Last Filed: 05/07/18 18:47> PMFSH - History History Provided By: Patient - Medical History Medical History: Medical History (Last Reviewed 05/06/18 @ 08:38 by Leia Winkler) Coronary artery disease Diabetes mellitus Hypertension MDRO (multiple drug resistant organisms) resistance Onset Date: ~04/26/18 - Surgical History Surgical History: Surgical History (Last Reviewed 05/06/18 @ 08:38 by Leia Winkler) Aortic valve replaced History of foot surgery S/P CABG x 3 - Family History Family History: Family History (Last Reviewed 05/06/18 @ 08:38 by Leia Winkler) Other Coronary artery disease Diabetes mellitus - Tobacco History Second Hand Smoke Exposure: No Smoking Status: Never smoker - Alcohol History How Often Do You Have a Drink Containing Alcohol: Never - Substance Use History Substance History: No History of Abuse - Travel History Recent Travel in the [place] Within the Last 8 Weeks: No Recent Travel Out of the Country Within the Last 8 Weeks: No - Immunization History Tetanus Immunization: Unsure <Nicolette Melton - Last Filed: 05/07/18 18:47> - Medical History Medical History: Medical History (Last Reviewed 05/06/18 @ 08:38 by Leia Winkler) Coronary artery disease Diabetes mellitus Hypertension MDRO (multiple drug resistant organisms) resistance Onset Date: ~04/26/18 - Surgical History Surgical History: Surgical History (Last Reviewed 05/06/18 @ 08:38 by Leia Winkler) Aortic valve replaced History of foot surgery S/P CABG x 3 - Family History Family History: Family History (Last Reviewed 05/06/18 @ 08:38 by Leia Winkler) Other Coronary artery disease Diabetes mellitus <Nicolas Dsouza - Last Filed: 05/08/18 14:33> Medications and Allergies Active Medications: Active Medications Acetaminophen (Tylenol) 650 mg PO Q4H PRN PRN Reason: Temp > 100.4 Acyclovir (Zovirax 5% Oint) 1 applicatio TOPICAL 5 TIMES A DAY [facility] Stop: 05/08/18 14:36 Last Admin: 05/07/18 18:38 Dose: 1 applicatio Amlodipine Besylate (Norvasc) 5 mg PO BID [facility] Last Admin: 05/07/18 09:21 Dose: 5 mg Aspirin (Aspirin Chew) 81 mg PO DAILY [facility] Last Admin: 05/07/18 09:21 Dose: 81 mg Atorvastatin Calcium (Lipitor) 40 mg PO DAILY [facility] Last Admin: 05/07/18 09:21 Dose: 40 mg Bisacodyl (Dulcolax Supp) 10 mg RECTAL DAILY PRN PRN Reason: SEVERE CONSITIPATION Clonidine HCl (Catapres) 0.1 mg PO Q6H PRN PRN Reason: SEE LABEL COMMENTS Dextrose (D50w Vial) 50 ml IV.PUSH UNSCH PRN PRN Reason: PER HYPOGLYCEMIA PROTOCOL Enalaprilat (Vasotec Inj) 1.25 mg IV.PUSH Q6H PRN PRN Reason: SBP> 165 or DBP> 90 Last Admin: 04/27/18 23:53 Dose: 1.25 mg Finasteride (Proscar) 5 mg PO DAILY [facility] Last Admin: 05/07/18 09:23 Dose: 5 mg Furosemide (Lasix) 20 mg PO DAILY [facility] Last Admin: 05/07/18 09:21 Dose: 20 mg Glucagon (Glucagon Inj) 1 mg OTHER PRN PRN PRN Reason: for Hypoglycemia Protocol Heparin Sodium (Porcine) (Heparin Inj) 5,000 units SQ Q12H [facility] Last Admin: 05/07/18 18:37 Dose: 5,000 units Hydralazine HCl (Apresoline) 10 mg PO TID [facility] Last Admin: 05/07/18 18:37 Dose: 10 mg Cefepime HCl 2,000 mg/ Sodium (Chloride) 100 mls @ 200 mls/hr IV.SIG Q12H [facility] Last Admin: 05/07/18 18:36 Dose: 200 mls/hr Sodium Chloride (Ns Inj) 500 mls @ 30 mls/hr IV.SIG .Q10H [facility] Last Admin: 05/01/18 10:36 Dose: Not Given Insulin Aspart (Novolog Insulin Correctional Sugar Inj) 0 unit SQ ACHS [facility]; Protocol Last Admin: 05/07/18 13:28 Dose: Not Given Insulin Aspart (Novolog Insulin Correctional Sugar Inj) 4 unit SQ TIDAC [facility]; Protocol Last Admin: 05/07/18 13:27 Dose: Not Given Insulin Detemir (Levemir Inj) 30 unit SQ DAILY [facility] Last Admin: 05/07/18 09:23 Dose: 30 unit Lactobacillus Acidophilus (Lactinex) 1 tab PO TID [facility] Last Admin: 05/07/18 18:37 Dose: 1 tab Linezolid (Zyvox) 600 mg PO Q12HR [facility] Last Admin: 05/07/18 09:23 Dose: 600 mg Lisinopril (Prinivil) 20 mg PO DAILY [facility] Last Admin: 05/07/18 09:23 Dose: 20 mg Metoprolol Tartrate (Lopressor) 25 mg PO BID [facility] Last Admin: 05/07/18 09:21 Dose: 25 mg Oxycodone/Acetaminophen (Percocet 10/325 Mg) 1 tab PO Q4H PRN PRN Reason: PAIN SCALE 6 TO 10 Last Admin: 05/07/18 13:24 Dose: 1 tab Pantoprazole Sodium (Protonix) 40 mg PO DAILY [facility] Last Admin: 05/07/18 09:22 Dose: 40 mg Promethazine HCl (Phenergan) 25 mg PO Q6H PRN PRN Reason: Nausea Last Admin: 05/07/18 09:22 Dose: 25 mg Sennosides (Senokot) 17.2 mg PO Q12H PRN PRN Reason: Moderate Constipation Sodium Chloride (Ns Flush) 2 ml IV.FLUSH BID [facility] Last Admin: 05/07/18 14:06 Dose: 2 ml Sodium Chloride (Ns Flush) 2 ml IV.FLUSH PRN PRN PRN Reason: FLUSH AFTER USING IV ACCESS Tamsulosin HCl (Flomax) 0.4 mg PO DAILY [facility] Last Admin: 05/07/18 09:23 Dose: 0.4 mg Zolpidem Tartrate (Ambien) 5 mg PO HS PRN PRN Reason: INSOMNIA <Melton,Nicolette - Last Filed: 05/07/18 18:47> Active Medications: Active Medications Acetaminophen (Tylenol) 650 mg PO Q4H PRN PRN Reason: Temp > 100.4 Acyclovir (Zovirax 5% Oint) 1 applicatio TOPICAL 5 TIMES A DAY [facility] Stop: 05/08/18 14:36 Last Admin: 05/08/18 09:26 Dose: Not Given Amlodipine Besylate (Norvasc) 5 mg PO BID [facility] Last Admin: 05/08/18 09:21 Dose: 5 mg Aspirin (Aspirin Chew) 81 mg PO DAILY [facility] Last Admin: 05/08/18 09:20 Dose: 81 mg Atorvastatin Calcium (Lipitor) 40 mg PO DAILY [facility] Last Admin: 05/08/18 09:21 Dose: 40 mg Bisacodyl (Dulcolax Supp) 10 mg RECTAL DAILY PRN PRN Reason: SEVERE CONSITIPATION Clonidine HCl (Catapres) 0.1 mg PO Q6H PRN PRN Reason: SEE LABEL COMMENTS Dextrose (D50w Vial) 50 ml IV.PUSH UNSCH PRN PRN Reason: PER HYPOGLYCEMIA PROTOCOL Enalaprilat (Vasotec Inj) 1.25 mg IV.PUSH Q6H PRN PRN Reason: SBP> 165 or DBP> 90 Last Admin: 04/27/18 23:53 Dose: 1.25 mg Finasteride (Proscar) 5 mg PO DAILY [facility] Last Admin: 05/08/18 09:20 Dose: 5 mg Furosemide (Lasix) 20 mg PO DAILY [facility] Last Admin: 05/08/18 09:21 Dose: 20 mg Glucagon (Glucagon Inj) 1 mg OTHER PRN PRN PRN Reason: for Hypoglycemia Protocol Heparin Sodium (Porcine) (Heparin Inj) 5,000 units SQ Q12H [facility] Last Admin: 05/08/18 05:22 Dose: 5,000 units Hydralazine HCl (Apresoline) 10 mg PO TID [facility] Last Admin: 05/08/18 09:20 Dose: 10 mg Cefepime HCl 2,000 mg/ Sodium (Chloride) 100 mls @ 200 mls/hr IV.SIG Q12H [facility] Last Infusion: 05/08/18 05:55 Dose: Infused Sodium Chloride (Ns Inj) 500 mls @ 30 mls/hr IV.SIG .Q10H [facility] Last Admin: 05/01/18 10:36 Dose: Not Given Insulin Aspart (Novolog Insulin Correctional Sugar Inj) 0 unit SQ ACHS [facility]; Protocol Last Admin: 05/08/18 09:31 Dose: Not Given Insulin Aspart (Novolog Insulin Correctional Sugar Inj) 4 unit SQ TIDAC [facility]; Protocol Last Admin: 05/08/18 09:31 Dose: Not Given Insulin Detemir (Levemir Inj) 30 unit SQ DAILY [facility] Last Admin: 05/08/18 09:29 Dose: 30 unit Lactobacillus Acidophilus (Lactinex) 1 tab PO TID [facility] Last Admin: 05/08/18 09:21 Dose: 1 tab Linezolid (Zyvox) 600 mg PO Q12HR [facility] Last Admin: 05/08/18 09:20 Dose: 600 mg Lisinopril (Prinivil) 20 mg PO DAILY [facility] Last Admin: 05/08/18 09:21 Dose: 20 mg Metoprolol Tartrate (Lopressor) 25 mg PO BID [facility] Last Admin: 05/08/18 09:21 Dose: 25 mg Oxycodone/Acetaminophen (Percocet 10/325 Mg) 1 tab PO Q4H PRN PRN Reason: PAIN SCALE 6 TO 10 Last Admin: 05/08/18 09:25 Dose: 1 tab Pantoprazole Sodium (Protonix) 40 mg PO DAILY [facility] Last Admin: 05/08/18 09:21 Dose: 40 mg Pantoprazole Sodium (Protonix Inj) 40 mg IV.PUSH Q12HR [facility] Promethazine HCl (Phenergan) 25 mg PO Q6H PRN PRN Reason: Nausea Last Admin: 05/07/18 09:22 Dose: 25 mg Sennosides (Senokot) 17.2 mg PO Q12H PRN PRN Reason: Moderate Constipation Sodium Chloride (Ns Flush) 2 ml IV.FLUSH BID [facility] Last Admin: 05/08/18 09:32 Dose: 2 ml Sodium Chloride (Ns Flush) 2 ml IV.FLUSH PRN PRN PRN Reason: FLUSH AFTER USING IV ACCESS Tamsulosin HCl (Flomax) 0.4 mg PO DAILY [facility] Last Admin: 05/08/18 09:20 Dose: 0.4 mg Zolpidem Tartrate (Ambien) 5 mg PO HS PRN PRN Reason: INSOMNIA <Kimberley,Mohammad A - Last Filed: 05/08/18 14:33> Allergies Allergy/AdvReac Type Severity Reaction Status Date / Time bee venom protein (honey bee) Allergy Anaphylaxis Verified 04/25/18 16:15 Home Medications Medication Instructions Recorded Confirmed Type amlodipine 5 mg PO DAILY 04/25/18 04/25/18 History aspirin 81 mg PO DAILY 04/25/18 04/25/18 History atorvastatin 40 mg PO DAILY 04/25/18 04/25/18 History baclofen 10 mg PO TID 04/25/18 04/25/18 History finasteride 5 mg PO DAILY 04/25/18 04/25/18 History furosemide 20 mg PO DAILY 04/25/18 04/25/18 History hydrocodone-acetaminophen 1 tab PO Q4H 04/25/18 04/25/18 History insulin degludec [Tresiba 12 unit SUBCUT DAILY 04/25/18 04/25/18 History FlexTouch U-100] lisinopril 20 mg PO DAILY 04/25/18 04/25/18 History metoprolol tartrate 25 mg PO BID 04/25/18 04/25/18 History pantoprazole 40 mg PO DAILY 04/25/18 04/25/18 History promethazine 25 mg PO Q6H PRN 04/25/18 04/25/18 History tamsulosin 0.4 mg PO DAILY 04/25/18 04/25/18 History Exam Vital signs: Vital Signs 05/06/18 20:00 05/07/18 00:00 05/07/18 04:00 Temperature 98.2 F 97.8 F 98.0 F Pulse Rate 64 55 L 62 Respiratory Rate 20 20 20 Blood Pressure 185/84 H 152/74 H 154/72 H Pulse Oximetry 97 96 98 05/07/18 08:00 05/07/18 12:00 05/07/18 16:00 Temperature 97.5 F L 98.0 F 97.8 F Pulse Rate 62 58 L 65 Respiratory Rate 20 20 16 Blood Pressure 156/76 H 179/76 H 179/76 H Pulse Oximetry 97 94 L 94 L Intake & Output 05/06/18 05/07/18 05/07/18 18:59 06:59 18:59 Intake Total 1070 / 1070 100 / 100 Output Total 10 10 Balance 1060 / 1060 100 / 100 Weight 99.2 kg 99.2 kg Intake: IV 100 / 100 100 / 100 Maxipime Inj 2,000 MG In NS Inj 100 / 100 100 / 100 100 ML @ 200 mls/hr IV.SIG Q12H [facility] Rx#:[id number] Oral 220 / 220 Other 750 / 750 Output: Estimated Blood Loss Other: Mode Setting Right Posterior Foot Continuous Continuous Continuous Other Intake Source Saline Solution # Voids 2 2 # Incontinent Voids 1 Date of Last Bowel Movement 05/04/18 05/06/18 05/06/18 # Bowel Movements 1 - Constitutional no acute distress, chronically ill appearing - Routine HEENT Exam Head: Present: normocephalic - Routine Respiratory Exam Present: CTA bilaterally. Absent: accessory muscle use - Routine Cardiovascular Exam Present: RRR - Routine Abdominal Exam Present: soft, normoactive bowel sounds. Absent: tenderness, distended, guarding, firm - Routine Extremities Exam Comments: Right foot and Omar wrap with wound dressing and wound VAC in place - Routine Skin Exam Present: dry, warm - Routine Neurological Exam Present: alert - Routine Psychiatric Exam Present: normal affect, cooperative <Melton,Nicolette - Last Filed: 05/07/18 18:47> Vital signs: Vital Signs 05/07/18 16:00 05/07/18 18:00 05/07/18 20:00 Temperature 97.8 F 97.9 F 97.8 F Pulse Rate 65 59 L 59 L Respiratory Rate 16 16 20 Blood Pressure 179/76 H 144/65 H 135/63 Pulse Oximetry 94 L 92 L 98 05/08/18 00:00 05/08/18 04:00 05/08/18 12:00 Temperature 98.1 F 98.4 F 97.9 F Pulse Rate 60 61 54 L Respiratory Rate 20 20 14 Blood Pressure 127/59 L 139/65 146/69 H Pulse Oximetry 98 96 97 Intake & Output 05/07/18 05/08/18 05/08/18 18:59 06:59 18:59 Intake Total 200 / 200 Balance 200 / 200 Weight 99.2 kg 101.5 kg Intake: IV 200 / 200 Maxipime Inj 2,000 MG In NS Inj 200 / 200 100 ML @ 200 mls/hr IV.SIG Q12H [facility] Rx#:[id number] Other: Mode Setting Right Posterior Foot Continuous Continuous # Voids 2 Date of Last Bowel Movement 05/06/18 <Nicolas Dsouza - Last Filed: 05/08/18 14:33> Results - Labs CBC & Chem 7: 05/07/18 07:36 05/07/18 11:00 Labs: Laboratory Results - last 24 hr 05/06/18 05/07/18 05/07/18 20:13 07:30 07:36 WBC 6.8 RBC 3.08 L Hgb 9.0 L Hct 25.9 L MCV 84.2 MCH 29.3 MCHC 34.7 RDW 17.1 Plt Count 165 MPV 8.6 Sodium Potassium Chloride Carbon Dioxide Anion Gap BUN Creatinine Estimated GFR POC Glucose 91 117 H Random Glucose Calcium 05/07/18 05/07/18 05/07/18 07:36 11:00 12:13 WBC RBC Hgb Hct MCV MCH MCHC RDW Plt Count MPV Sodium 140 Potassium 5.2 H 5.3 H Chloride 110 H Carbon Dioxide 22.6 Anion Gap 7 BUN 37 H Creatinine 1.88 H Estimated GFR 36 L POC Glucose 128 H Random Glucose 106 Calcium 8.7 05/07/18 17:52 WBC RBC Hgb Hct MCV MCH MCHC RDW Plt Count MPV Sodium Potassium Chloride Carbon Dioxide Anion Gap BUN Creatinine Estimated GFR POC Glucose 114 H Random Glucose Calcium <Nicolette Melton - Last Filed: 05/07/18 18:47> - Labs CBC & Chem 7: 05/08/18 06:15 05/08/18 06:15 Labs: Laboratory Results - last 24 hr 05/07/18 05/07/18 05/08/18 17:52 21:52 06:15 WBC 4.4 RBC 2.70 L Hgb 7.8 L Hct 22.8 L MCV 84.2 MCH 28.7 MCHC 34.1 RDW 17.0 Plt Count 116 L MPV 8.2 Retic Count Absolute Retic Sodium Potassium Chloride Carbon Dioxide Anion Gap BUN Creatinine Estimated GFR POC Glucose 114 H 159 H Random Glucose Calcium Iron TIBC % Saturation Ferritin Total Bilirubin Direct Bilirubin Indirect Bilirubin AST ALT Alkaline Phosphatase Total Protein Albumin 05/08/18 05/08/18 05/08/18 06:15 06:15 06:15 WBC RBC Hgb Hct MCV MCH MCHC RDW Plt Count MPV Retic Count 1.1 Absolute Retic 29.4 Sodium 138 Potassium 4.9 Chloride 108 H Carbon Dioxide 25.0 Anion Gap 5 BUN 37 H Creatinine 1.98 H Estimated GFR 34 L POC Glucose Random Glucose 115 H Calcium 8.4 L Iron 109 TIBC 202 L % Saturation 54.1 H Ferritin 97 Total Bilirubin 0.3 Direct Bilirubin 0.1 Indirect Bilirubin 0.2 AST 13 L ALT 17 Alkaline Phosphatase 55 Total Protein 5.9 L Albumin 2.6 L 05/08/18 05/08/18 08:18 12:15 WBC RBC Hgb Hct MCV MCH MCHC RDW Plt Count MPV Retic Count Absolute Retic Sodium Potassium Chloride Carbon Dioxide Anion Gap BUN Creatinine Estimated GFR POC Glucose 139 H 133 H Random Glucose Calcium Iron TIBC % Saturation Ferritin Total Bilirubin Direct Bilirubin Indirect Bilirubin AST ALT Alkaline Phosphatase Total Protein Albumin <Nicolas Dsouza - Last Filed: 05/08/18 14:33> Assessment and Plan (1) Nausea & vomiting Status: Acute Code(s): R11.2 - Nausea with vomiting, unspecified - Plan This patient is a 63-year-old male with past medical history significant for coronary artery disease post CABG, hypertension, diabetes mellitus and hyperlipidemia. Patient currently admitted and being treated for osteomyelitis of the right foot. Patient presented to [facility] under the instruction of his infectious disease doctor to receive IV antibiotics for osteomyelitis. Patient also endorses history of MRSA and VRE. Wound VAC present to the right foot wound. Upon consultation, Patient endorses nausea and vomiting x1 this morning. States that he was given Phenergan without relief. Patient also endorses having mid abdominal tenderness post nausea and vomiting. Patient states pain is constant and rates same at 4 out of 10. Patient denies any present nausea. Patient denies fever or chills. Denies ever having had EGD or colonoscopy in the past. Patient states he is having formed brown stools without any noted bleeding. Denies change in bowel habits. Denies any known family history for gastrointestinal disorders. Denies use of tobacco or alcohol products. Patient denies heartburn, symptoms of acid reflux. Our service has been consulted to evaluate patient for reported nausea and vomiting Nausea vomiting Patient endorses nausea with emesis x2 this a.m. States mid abdominal tenderness that he attributes to vomiting this a.m. Patient denies any noted bleeding. Patient currently being treated with IV antibiotics for osteomyelitis of the right foot. IV cefepime 05/07/2018 hemoglobin 9.0 hematocrit 25.9 WBC 6.8 Plan -Diet as tolerated -Antiemetics as per attending -Analgesics since per attending -Continue PPI-pantoprazole 40 mg p.o. daily -Monitor labs -Supportive care -Further recommendations to follow This patient has been seen by myself and Dr. Dsouza and this note is written on his behalf - Attending Attestation Dr. dsouza <Nicolette Melton - Last Filed: 05/07/18 18:47> (1) Nausea & vomiting Status: Acute Code(s): R11.2 - Nausea with vomiting, unspecified - Attending Attestation Seen and examined with vipul Borrero as above. Will follow up with you. Thank you for the consult. <Nicolas Dsouza - Last Filed: 05/08/18 14:33>
[2018-05-08] MEDS: Heparin - SQ 10,000 UNITS/ML Vial SQ SCH ×2 (05:22→18:42)
[2018-05-08] MEDS: oxyCODONE/Acetaminophen 10/325 Tablet PO PRN ×4 (05:23→22:08)
[2018-05-08 06:59] LABS: Hematocrit 22.8 % (39.0-51.0); Hemoglobin 7.8 gm/dL (13.0-17.0); Mean Corpuscular HGB Conc 34.1 % (32.0-36.0); Mean Corpuscular Hemoglobin 28.7 pg (27.0-34.0); Mean Corpuscular Volume 84.2 fL (80.0-100.0); Mean Platelet Volume 8.2 fL (7.0-11.0); Platelet Count 116 th/mm3 (150-450); White Blood Count 4.4 th/mm3 (4.0-11.0)
[2018-05-08 07:24] LABS: Albumin 2.6 g/dL (3.4-5.0); Calcium 8.4 mg/dL (8.5-10.1); Potassium 4.9 meq/L (3.5-5.1)
[2018-05-08 07:27] LABS: Total Protein 5.9 g/dL (6.4-8.2)
[2018-05-08] MEDS: Linezolid 600 MG Tablet PO SCH ×2 (09:20→22:08)
[2018-05-08] MEDS: Finasteride 5 MG Tablet PO SCH (09:20)
[2018-05-08] MEDS: hydrALAZINE 10 MG Tablet PO SCH ×3 (09:20→18:42)
[2018-05-08] MEDS: amLODIPine 5 MG Tablet PO SCH ×2 (09:21→22:07)
[2018-05-08] MEDS: Metoprolol Tartrate 25 MG Tablet PO SCH ×2 (09:21→22:10)
[2018-05-08] MEDS: Furosemide 20 MG Tablet PO SCH (09:21)
[2018-05-08] MEDS: Lactobacillus Acidophilus/L. Spores Tablet PO SCH ×3 (09:21→18:42)
[2018-05-08] MEDS: Lisinopril 20 MG Tablet PO SCH (09:21)
[2018-05-08] MEDS: Insulin Detemir Inj 1,000 UNIT/10 ML Vial SQ SCH (09:29)
[2018-05-08] MEDS: Insulin NovoLOG Aspart Correctional Sugar Inj SQ SCH ×5 (09:31→22:18)
[2018-05-08] MEDS: Sodium Chloride 0.9% 2 ML Flush BID IV.FLUSH SCH ×2 (09:32→22:10)
--- NOTE | 2018-05-08 13:42 | P.PNIM ---
Subjective Interval history: Patient reports continued nausea. Denies any bleeding. Denies any black tarry stools. Denies any chest pain or shortness of breath. Physical Exam Vital signs: Vital Signs 05/07/18 16:00 05/07/18 18:00 05/07/18 20:00 Temperature 97.8 F 97.9 F 97.8 F Pulse Rate 65 59 L 59 L Respiratory Rate 16 16 20 Blood Pressure 179/76 H 144/65 H 135/63 Pulse Oximetry 94 L 92 L 98 05/08/18 00:00 05/08/18 04:00 05/08/18 12:00 Temperature 98.1 F 98.4 F 97.9 F Pulse Rate 60 61 54 L Respiratory Rate 20 20 14 Blood Pressure 127/59 L 139/65 146/69 H Pulse Oximetry 98 96 97 Intake & Output 05/07/18 05/08/18 05/08/18 18:59 06:59 18:59 Intake Total 200 / 200 Balance 200 / 200 Weight 99.2 kg 101.5 kg Intake: IV 200 / 200 Maxipime Inj 2,000 MG In NS Inj 200 / 200 100 ML @ 200 mls/hr IV.SIG Q12H [facility] Rx#:[id number] Other: Mode Setting Right Posterior Foot Continuous Continuous # Voids 2 Date of Last Bowel Movement 05/06/18 Narrative: GENERAL: Patient lying in bed. Appears comfortable. SKIN: Warm and dry. HEAD: Normocephalic. EYES: No scleral icterus. No injection or drainage. NECK: Supple, trachea midline. No JVD. CARDIOVASCULAR: Regular rate and rhythm without murmurs, gallops, or rubs. RESPIRATORY: Breath sounds equal bilaterally. No accessory muscle use. GASTROINTESTINAL: Abdomen soft, non-tender, nondistended. MUSCULOSKELETAL: No cyanosis. Right lower extremity dressed with dressing clean dry and intact. Wound VAC in place. BACK: Nontender without obvious deformity. No CVA tenderness. Results - Labs CBC & Chem 7: 05/08/18 06:15 05/08/18 06:15 Laboratory Results - last 24 hr 05/07/18 05/07/18 05/08/18 17:52 21:52 06:15 WBC 4.4 RBC 2.70 L Hgb 7.8 L Hct 22.8 L MCV 84.2 MCH 28.7 MCHC 34.1 RDW 17.0 Plt Count 116 L MPV 8.2 Sodium Potassium Chloride Carbon Dioxide Anion Gap BUN Creatinine Estimated GFR POC Glucose 114 H 159 H Random Glucose Calcium Total Bilirubin Direct Bilirubin Indirect Bilirubin AST ALT Alkaline Phosphatase Total Protein Albumin 05/08/18 05/08/18 05/08/18 06:15 08:18 12:15 WBC RBC Hgb Hct MCV MCH MCHC RDW Plt Count MPV Sodium 138 Potassium 4.9 Chloride 108 H Carbon Dioxide 25.0 Anion Gap 5 BUN 37 H Creatinine 1.98 H Estimated GFR 34 L POC Glucose 139 H 133 H Random Glucose 115 H Calcium 8.4 L Total Bilirubin 0.3 Direct Bilirubin 0.1 Indirect Bilirubin 0.2 AST 13 L ALT 17 Alkaline Phosphatase 55 Total Protein 5.9 L Albumin 2.6 L Assessment and Plan - Assessment (1) Osteomyelitis Code(s): M86.9 - Osteomyelitis, unspecified Status: Acute (2) Renal insufficiency Code(s): N28.9 - Disorder of kidney and ureter, unspecified Status: Acute (3) Anxiety Code(s): F41.9 - Anxiety disorder, unspecified Status: Acute (4) Diabetic infection of right foot Code(s): E11.628 - Type 2 diabetes mellitus with other skin complications; L08.9 - Local infection of the skin and subcutaneous tissue, unspecified Status: Acute (5) Osteomyelitis of right foot Code(s): M86.9 - Osteomyelitis, unspecified Status: Acute - Plan 63-year-old male with past medical history significant for hypertension, diabetes mellitus, coronary artery disease and hyperlipidemia presents to the emergency department for a scheduled bone biopsy of his right foot with Dr. Layne. //History of Right foot osteomyelitis Hx of incision and drainage of right foot 02/16/2018 and right foot redebridement 02/19 Patient with known MRSA osteomyelitis, admitted at the recommendation of his technical report writer for bone biopsy Foot x-ray significant for bony erosive changes at the distal medial aspect of the first metatarsal most characteristic of osteomyelitis Patient's ID provider Dr. Betancur has stopped his Zyvox 5 days ago prior to admission and requested a bone biopsy. Final cultures from bone biopsy show Pseudomonas, E. coli, enterococcus faecalis VRE, infectious disease Dr. Lei consulted and recommending Zyvox and cefepime IV twice daily for 2 more weeks, path from the bone biopsy showed chronic osteomyelitis. MRI of the right foot also reviewed which showed interval development of bone marrow edema characteristic of osteomyelitis involving the distal first metatarsal No further surgical intervention from podiatry and recommended continue antibiotics and wound VAC changes. Case management working on obtaining wound VAC for home health. -Wound VAC change Sunday, Sunday, Sunday. Discussed with patient that the floor RN is qualified and trained to change the wound VAC. -Podiatry will follow up today and provide clarification for the patient as well. Awaiting for arrangement for wound vac at home. -The patient is cleared for discharge from infectious disease and podiatry standpoint. Wound VAC and IV antibiotics has been arranged for home //Nausea and vomiting: Patient had an episode a few days ago that resolved but he reports that he had one episode of vomiting again today. He states he did not eat much yesterday and had chicken fingers last night. He could not tolerate lunch per his report. May have gastroparesis. -The patient was not clear about his GI history. He tells me that he never had any GI problems but later indicated that he has had a gastric emptying study in the past. -Consult GI for assistance. - Antiemetics. He states Zofran does not work for him. Continue Phenergan PRN. = 05/08. Nausea continues. GI following. Appreciate assistance //Coronary artery disease Status post CABG -Continue aspirin, continue BB //Diabetes mellitus, type II, insulin dependent with nephropathy Blood glucose better controlled. -Sliding-scale insulin -Continue Levemir to 30 units SQ daily Preprandial NovoLog 4 units p.o. 3 times daily Hemoglobin A1c is pending. //Hypertension/hyperlipidemiablood pressure better controlled -Continue Prinivil, Lopressor, Lasix, Norvasc, and hydralazine -continue Lipitor //CKD (stage III) -Monitor renal function, stable -Mild hyperkalemia. Given reported vomiting, hold off on Kayexalate, repeat labs in a.m. and consider treating if unchanged. -avoid nephrotoxic agents //History of prosthetic valve replacement -Had recent echo -stable, continue medical management, continue with Lopressor, Lasix //Hx of urinary retention -continue Flomax. //Anemia, acute on chronic Likely due to CKD -05/08. Hemoglobin decreased to 7.8 from 9.0 yesterday. Will recheck. Will order ferritin, iron studies, reticulocyte count. Due to nausea and vomiting, will start on IV PPI. GI following. Appreciate assistance. //Diarrhea, resolved. //DVT prophylaxis with heparin subcu twice daily Discharge Planning: Patient was set up for discharge until he reported nausea and vomiting yesterday. GI has been consulted. = We will need by mouth Zyvox, as well as IV cefepime until 06/03 He can be discharged to home with home health IV antibiotics once cleared by GI. (1) Osteomyelitis Qualifiers: Osteomyelitis type: unspecified type Osteomyelitis location: foot
[2018-05-08 13:55] LABS: Reticulocyte Percent 1.1 % (0.4-3.0)
[2018-05-08 14:04] LABS: % Iron Saturation 54.1 % (20-50)
[2018-05-08] MEDS: Pantoprazole Inj 40 MG Vial IV.PUSH SCH ×2 (15:07→22:10)
[2018-05-09] MEDS: Insulin NovoLOG Aspart Correctional Sugar Inj SQ SCH ×5 (00:37→12:19)
[2018-05-09] MEDS: Heparin - SQ 10,000 UNITS/ML Vial SQ SCH (05:30)
[2018-05-09 06:02] LABS: Baso # (Auto) 0.1 th/mm3 (0.0-0.2); Eos # (Auto) 0.3 th/mm3 (0.0-0.4); Eos % (Auto) 5.8 % (0.0-4.0); Hematocrit 23.3 % (39.0-51.0); Lymph % (Auto) 18.2 % (9.0-44.0); Mean Corpuscular HGB Conc 34.1 % (32.0-36.0); Mean Corpuscular Hemoglobin 28.5 pg (27.0-34.0); Mean Corpuscular Volume 83.5 fL (80.0-100.0); Mean Platelet Volume 8.2 fL (7.0-11.0); Mono # (Auto) 0.4 th/mm3 (0.0-0.9); Mono % (Auto) 7.7 % (0.0-8.0); Neut # (Auto) 3.5 th/mm3 (1.8-7.7); Neut % (Auto) 67.3 % (16.0-70.0); Platelet Count 108 th/mm3 (150-450); Red Blood Count 2.79 mil/mm3 (4.50-5.90); Red Cell Distribution Width 16.5 % (11.6-17.2); White Blood Count 5.2 th/mm3 (4.0-11.0)
[2018-05-09 06:19] LABS: Albumin 2.8 g/dL (3.4-5.0); Calcium 8.4 mg/dL (8.5-10.1); Carbon Dioxide 24.9 meq/L (21.0-32.0); Magnesium 2.2 mg/dL (1.5-2.5); Phosphorus 3.8 mg/dL (2.5-4.9)
[2018-05-09 06:22] LABS: Total Protein 6.1 g/dL (6.4-8.2)
[2018-05-09 09:04] VITALS: RESP 20; TEMP 98.6
[2018-05-09] MEDS: Furosemide 20 MG Tablet PO SCH (09:25)
[2018-05-09] MEDS: amLODIPine 5 MG Tablet PO SCH (09:25)
[2018-05-09] MEDS: Metoprolol Tartrate 25 MG Tablet PO SCH (09:25)
[2018-05-09] MEDS: Lisinopril 20 MG Tablet PO SCH (09:26)
[2018-05-09] MEDS: hydrALAZINE 10 MG Tablet PO SCH ×2 (09:26→13:35)
[2018-05-09] MEDS: Pantoprazole Inj 40 MG Vial IV.PUSH SCH (09:26)
[2018-05-09] MEDS: Linezolid 600 MG Tablet PO SCH (09:26)
[2018-05-09] MEDS: Finasteride 5 MG Tablet PO SCH (09:26)
[2018-05-09] MEDS: Sodium Chloride 0.9% 2 ML Flush BID IV.FLUSH SCH (09:26)
[2018-05-09] MEDS: Insulin Detemir Inj 1,000 UNIT/10 ML Vial SQ SCH (09:27)
[2018-05-09] MEDS: Lactobacillus Acidophilus/L. Spores Tablet PO SCH ×2 (09:27→13:35)
--- NOTE | 2018-05-09 11:56 | P.PNIM ---
Subjective Interval history: Patient says he is feeling generally all right. Denies any chest pain or shortness of breath. He reports chronic abdominal discomfort which is made better by a tropical milkshake. He has tolerated his meals. Denies any black tarry bowel movements. Physical Exam Vital signs: Vital Signs 05/08/18 12:00 05/08/18 16:00 05/08/18 20:00 Temperature 97.9 F 97.9 F 98.4 F Pulse Rate 54 L 57 L 60 Respiratory Rate 14 15 15 Blood Pressure 146/69 H 143/68 H 149/69 H Pulse Oximetry 97 96 98 05/09/18 00:00 05/09/18 04:00 05/09/18 08:00 Temperature 97.3 F L 97.9 F 98.6 F Pulse Rate 58 L 56 L 62 Respiratory Rate 20 17 20 Blood Pressure 132/63 118/59 L 161/70 H Pulse Oximetry 96 96 98 Intake & Output 05/08/18 05/09/18 05/09/18 18:59 06:59 18:59 Intake Total 100 / 100 100 / 100 Balance 100 / 100 100 / 100 Weight 100.6 kg Intake: IV 100 / 100 100 / 100 Maxipime Inj 2,000 MG In NS Inj 100 / 100 100 / 100 100 ML @ 200 mls/hr IV.SIG Q12H [facility] Rx#:[id number] Other: Mode Setting Right Posterior Foot Continuous Continuous Continuous # Voids 3 Date of Last Bowel Movement 05/06/18 05/08/18 05/08/18 # Bowel Movements 1 Narrative: GENERAL: Patient sitting up in chair at bedside. Appears comfortable. SKIN: Warm and dry. HEAD: Normocephalic. EYES: No scleral icterus. No injection or drainage. NECK: Supple, trachea midline. No JVD. CARDIOVASCULAR: Regular rate and rhythm without murmurs, gallops, or rubs. RESPIRATORY: Breath sounds equal bilaterally. No accessory muscle use. GASTROINTESTINAL: Abdomen soft, non-tender, nondistended. No rebound or guarding. Positive bowel sounds. MUSCULOSKELETAL: No cyanosis. Right lower extremity dressed with dressing clean dry and intact. Wound VAC in place. BACK: Nontender without obvious deformity. No CVA tenderness. Results - Labs CBC & Chem 7: 05/09/18 05:49 05/09/18 05:49 Laboratory Results - last 24 hr 05/08/18 05/08/18 05/08/18 06:15 06:15 12:15 WBC RBC Hgb Hct MCV MCH MCHC RDW Plt Count MPV Neut % (Auto) Lymph % (Auto) [place] % (Auto) Eos % (Auto) Baso % (Auto) Neut # (Auto) Lymph # (Auto) [place] # (Auto) Eos # (Auto) Baso # (Auto) WBC Differential Differential Comment Retic Count 1.1 Absolute Retic 29.4 Sodium Potassium Chloride Carbon Dioxide Anion Gap BUN Creatinine Estimated GFR POC Glucose 133 H Random Glucose Calcium Phosphorus Magnesium Iron 109 TIBC 202 L % Saturation 54.1 H Ferritin 97 Total Bilirubin Direct Bilirubin Indirect Bilirubin AST ALT Alkaline Phosphatase Total Protein Albumin 05/08/18 05/08/18 05/08/18 15:00 17:48 22:06 WBC RBC Hgb 8.4 L Hct MCV MCH MCHC RDW Plt Count MPV Neut % (Auto) Lymph % (Auto) [place] % (Auto) Eos % (Auto) Baso % (Auto) Neut # (Auto) Lymph # (Auto) [place] # (Auto) Eos # (Auto) Baso # (Auto) WBC Differential Differential Comment Retic Count Absolute Retic Sodium Potassium Chloride Carbon Dioxide Anion Gap BUN Creatinine Estimated GFR POC Glucose 122 H 140 H Random Glucose Calcium Phosphorus Magnesium Iron TIBC % Saturation Ferritin Total Bilirubin Direct Bilirubin Indirect Bilirubin AST ALT Alkaline Phosphatase Total Protein Albumin 05/09/18 05/09/18 05/09/18 05:49 05:49 08:02 WBC 5.2 RBC 2.79 L Hgb 8.0 L Hct 23.3 L MCV 83.5 MCH 28.5 MCHC 34.1 RDW 16.5 Plt Count 108 L MPV 8.2 Neut % (Auto) 67.3 Lymph % (Auto) 18.2 [place] % (Auto) 7.7 Eos % (Auto) 5.8 H Baso % (Auto) 1.0 Neut # (Auto) 3.5 Lymph # (Auto) 1.0 [place] # (Auto) 0.4 Eos # (Auto) 0.3 Baso # (Auto) 0.1 WBC Differential . Differential Comment Auto diff final Retic Count Absolute Retic Sodium 139 Potassium 5.0 Chloride 107 Carbon Dioxide 24.9 Anion Gap 7 BUN 34 H Creatinine 1.84 H Estimated GFR 37 L POC Glucose 107 Random Glucose 94 Calcium 8.4 L Phosphorus 3.8 Magnesium 2.2 Iron TIBC % Saturation Ferritin Total Bilirubin 0.3 Direct Bilirubin 0.1 Indirect Bilirubin 0.2 AST 14 L ALT 19 Alkaline Phosphatase 47 Total Protein 6.1 L Albumin 2.8 L Assessment and Plan - Assessment (1) Osteomyelitis Code(s): M86.9 - Osteomyelitis, unspecified Status: Acute (2) Renal insufficiency Code(s): N28.9 - Disorder of kidney and ureter, unspecified Status: Acute (3) Anxiety Code(s): F41.9 - Anxiety disorder, unspecified Status: Acute (4) Diabetic infection of right foot Code(s): E11.628 - Type 2 diabetes mellitus with other skin complications; L08.9 - Local infection of the skin and subcutaneous tissue, unspecified Status: Acute (5) Osteomyelitis of right foot Code(s): M86.9 - Osteomyelitis, unspecified Status: Acute - Plan 63-year-old male with past medical history significant for hypertension, diabetes mellitus, coronary artery disease and hyperlipidemia presents to the emergency department for a scheduled bone biopsy of his right foot with Dr. Layne. //History of Right foot osteomyelitis Hx of incision and drainage of right foot 02/16/2018 and right foot redebridement 02/19 Patient with known MRSA osteomyelitis, admitted at the recommendation of his radiology receptionist for bone biopsy Foot x-ray significant for bony erosive changes at the distal medial aspect of the first metatarsal most characteristic of osteomyelitis Patient's ID provider Dr. Betancur has stopped his Zyvox 5 days ago prior to admission and requested a bone biopsy. Final cultures from bone biopsy show Pseudomonas, E. coli, enterococcus faecalis VRE, infectious disease Dr. Lei consulted and recommending Zyvox and cefepime IV twice daily for 2 more weeks, path from the bone biopsy showed chronic osteomyelitis. MRI of the right foot also reviewed which showed interval development of bone marrow edema characteristic of osteomyelitis involving the distal first metatarsal No further surgical intervention from podiatry and recommended continue antibiotics and wound VAC changes. Case management working on obtaining wound VAC for home health. -Wound VAC change Sunday, Sunday, Sunday. Discussed with patient that the floor RN is qualified and trained to change the wound VAC. -Podiatry will follow up today and provide clarification for the patient as well. Awaiting for arrangement for wound vac at home. -The patient is cleared for discharge from infectious disease and podiatry standpoint. Wound VAC and IV antibiotics has been arranged for home //Nausea and vomiting: Patient had an episode a few days ago that resolved but he reports that he had one episode of vomiting again today. He states he did not eat much yesterday and had chicken fingers last night. He could not tolerate lunch per his report. May have gastroparesis. -The patient was not clear about his GI history. He tells me that he never had any GI problems but later indicated that he has had a gastric emptying study in the past. -Consult GI for assistance. - Antiemetics. He states Zofran does not work for him. Continue Phenergan PRN. = 05/09. Patient reports that vague abdominal discomfort and mild nausea is chronic. Denies any black tarry stools. Tolerating diet. Had a bowel movement. Discussed with nursing. Patient has been cleared by GI //Coronary artery disease Status post CABG -Continue aspirin, continue BB //Diabetes mellitus, type II, insulin dependent with nephropathy Blood glucose better controlled. -Sliding-scale insulin -Continue Levemir to 30 units SQ daily Preprandial NovoLog 4 units p.o. 3 times daily Hemoglobin A1c is pending. //Hypertension/hyperlipidemiablood pressure better controlled -Continue Prinivil, Lopressor, Lasix, Norvasc, and hydralazine -continue Lipitor //CKD (stage III) -Monitor renal function, stable -Mild hyperkalemia. Given reported vomiting, hold off on Kayexalate, repeat labs in a.m. and consider treating if unchanged. -avoid nephrotoxic agents //History of prosthetic valve replacement -Had recent echo -stable, continue medical management, continue with Lopressor, Lasix //Hx of urinary retention -continue Flomax. //Anemia, acute on chronic Likely due to CKD -05/08. Hemoglobin decreased to 7.8 from 9.0 yesterday. Will recheck. Will order ferritin, iron studies, reticulocyte count. Due to nausea and vomiting, will start on IV PPI. GI following. Appreciate assistance. = 05/09. Anemia is likely multifactorial. TIBC is low, ferritin borderline. Will give IV iron here. Will avoid chronic supplementation with iron as patient will need endoscopy prior to starting by mouth iron. //Diarrhea, resolved. //DVT prophylaxis with heparin subcu twice daily Discharge Planning: Patient was set up for discharge until he reported nausea and vomiting yesterday. GI has been consulted. = We will need by mouth Zyvox, as well as IV cefepime until 06/03 = Cleared by GI. Follow with GI, podiatry, ID as outpatient. (1) Osteomyelitis Qualifiers: Osteomyelitis type: unspecified type Osteomyelitis location: foot
--- NOTE | 2018-05-09 12:00 | P.DS ---
Date of admission: 04/26/18 02:05 Primary care physician: PROVIDER NON STAFF Brief History from admission: 63-year-old male with past medical history significant for hypertension, diabetes mellitus, coronary artery disease and hyperlipidemia presents to the emergency department for a scheduled bone biopsy of his right foot with Dr. Layne. The patient reports that he was told he would be a direct admission however on his arrival he was instructed to come to the emergency department. Per the patient, he is being treated for osteomyelitis of the right foot. He was previously on Zyvox through a PICC line for the past 3 weeks that was stopped on Sunday at the instruction of his infectious disease doctor, Dr. Zuniga and his engineering writer. 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 He also had a wound VAC present until 3 days ago. The patient denies any recent fevers/chills. No chest pain or shortness of breath. No abdominal pain. No nausea/vomiting/ diarrhea. No focal neurologic symptoms. DS: Diagnosis - Discharge Diagnosis (1) Osteomyelitis Status: Acute (2) Renal insufficiency Status: Acute (3) Anxiety Status: Acute (4) Diabetic infection of right foot Status: Acute (5) Osteomyelitis of right foot Status: Acute DS: Medications - Discharge Medications Prescriptions: linezolid [Zyvox] 600 mg PO BID 7 Days #14 tab DS: Summary Hospital Course: 63-year-old male with past medical history significant for hypertension, diabetes mellitus, coronary artery disease and hyperlipidemia presents to the emergency department for a scheduled bone biopsy of his right foot with Dr. Layne. //History of Right foot osteomyelitis Hx of incision and drainage of right foot 02/16/2018 and right foot redebridement 02/19 Patient with known MRSA osteomyelitis, admitted at the recommendation of his engineering writer for bone biopsy Foot x-ray significant for bony erosive changes at the distal medial aspect of the first metatarsal most characteristic of osteomyelitis Patient's ID provider Dr. Betancur has stopped his Zyvox 5 days ago prior to admission and requested a bone biopsy. Final cultures from bone biopsy show Pseudomonas, E. coli, enterococcus faecalis VRE, infectious disease Dr. Lei consulted and recommending Zyvox and cefepime IV twice daily for 2 more weeks, path from the bone biopsy showed chronic osteomyelitis. MRI of the right foot also reviewed which showed interval development of bone marrow edema characteristic of osteomyelitis involving the distal first metatarsal No further surgical intervention from podiatry and recommended continue antibiotics and wound VAC changes. Case management working on obtaining wound VAC for home health. -Wound VAC change Sunday, Sunday, Sunday. Discussed with patient that the floor RN is qualified and trained to change the wound VAC. -Podiatry will follow up today and provide clarification for the patient as well. Awaiting for arrangement for wound vac at home. -The patient is cleared for discharge from infectious disease and podiatry standpoint. Wound VAC and IV antibiotics has been arranged for home //Nausea and vomiting: Patient had an episode a few days ago that resolved but he reports that he had one episode of vomiting again today. He states he did not eat much yesterday and had chicken fingers last night. He could not tolerate lunch per his report. May have gastroparesis. -The patient was not clear about his GI history. He tells me that he never had any GI problems but later indicated that he has had a gastric emptying study in the past. -Consult GI for assistance. - Antiemetics. He states Zofran does not work for him. Continue Phenergan PRN. = 05/09. Patient reports that vague abdominal discomfort and mild nausea is chronic. Denies any black tarry stools. Tolerating diet. Had a bowel movement. Discussed with nursing. Patient has been cleared by GI //Coronary artery disease Status post CABG -Continue aspirin, continue BB //Diabetes mellitus, type II, insulin dependent with nephropathy Blood glucose better controlled. -Sliding-scale insulin -Continue Levemir to 30 units SQ daily Preprandial NovoLog 4 units p.o. 3 times daily Hemoglobin A1c is pending. //Hypertension/hyperlipidemiablood pressure better controlled -Continue Prinivil, Lopressor, Lasix, Norvasc, and hydralazine -continue Lipitor //CKD (stage III) -Monitor renal function, stable -Mild hyperkalemia. Given reported vomiting, hold off on Kayexalate, repeat labs in a.m. and consider treating if unchanged. -avoid nephrotoxic agents //History of prosthetic valve replacement -Had recent echo -stable, continue medical management, continue with Lopressor, Lasix //Hx of urinary retention -continue Flomax. //Anemia, acute on chronic Likely due to CKD -05/08. Hemoglobin decreased to 7.8 from 9.0 yesterday. Will recheck. Will order ferritin, iron studies, reticulocyte count. Due to nausea and vomiting, will start on IV PPI. GI following. Appreciate assistance. = 05/09. Anemia is likely multifactorial. TIBC is low, ferritin borderline. Will give IV iron here. Will avoid chronic supplementation with iron as patient will need endoscopy prior to starting by mouth iron. //Diarrhea, resolved. //DVT prophylaxis with heparin subcu twice daily Discharge Planning: Patient was set up for discharge until he reported nausea and vomiting yesterday. GI has been consulted. = We will need by mouth Zyvox, as well as IV cefepime until 06/03 = Cleared by GI. Follow with GI, podiatry, ID as outpatient. - Time Spent with Patient Total time spent providing and/or coordinating discharge services: - Quality: VTE Deep Vein Thrombosis/Pulmonary Embolism Present on Admission: No Exam Vital signs: Vital Signs 05/08/18 12:00 05/08/18 16:00 05/08/18 20:00 Temperature 97.9 F 97.9 F 98.4 F Pulse Rate 54 L 57 L 60 Respiratory Rate 14 15 15 Blood Pressure 146/69 H 143/68 H 149/69 H Pulse Oximetry 97 96 98 05/09/18 00:00 05/09/18 04:00 05/09/18 08:00 Temperature 97.3 F L 97.9 F 98.6 F Pulse Rate 58 L 56 L 62 Respiratory Rate 20 17 20 Blood Pressure 132/63 118/59 L 161/70 H Pulse Oximetry 96 96 98 Intake & Output 05/08/18 05/09/18 05/09/18 18:59 06:59 18:59 Intake Total 100 / 100 100 / 100 Balance 100 / 100 100 / 100 Weight 100.6 kg Intake: IV 100 / 100 100 / 100 Maxipime Inj 2,000 MG In NS Inj 100 / 100 100 / 100 100 ML @ 200 mls/hr IV.SIG Q12H JENNIFER Rx#:[id number] Other: Mode Setting Right Posterior Foot Continuous Continuous Continuous # Voids 3 Date of Last Bowel Movement 05/06/18 05/08/18 05/08/18 # Bowel Movements 1 Results Procedures completed during hospitalization: Incision and debridement, with wound VAC placement of right foot. Labs on day of discharge: Labs from last 24 hours 05/09/18 05/09/18 05/09/18 08:02 05:49 05:49 WBC 5.2 RBC 2.79 L Hgb 8.0 L Hct 23.3 L MCV 83.5 MCH 28.5 MCHC 34.1 RDW 16.5 Plt Count 108 L MPV 8.2 Neut % (Auto) 67.3 Lymph % (Auto) 18.2 [place] % (Auto) 7.7 Eos % (Auto) 5.8 H Baso % (Auto) 1.0 Neut # (Auto) 3.5 Lymph # (Auto) 1.0 [place] # (Auto) 0.4 Eos # (Auto) 0.3 Baso # (Auto) 0.1 WBC Differential . Differential Comment Auto diff final Retic Count Absolute Retic Sodium 139 Potassium 5.0 Chloride 107 Carbon Dioxide 24.9 Anion Gap 7 BUN 34 H Creatinine 1.84 H Estimated GFR 37 L POC Glucose 107 Random Glucose 94 Calcium 8.4 L Phosphorus 3.8 Magnesium 2.2 Iron TIBC % Saturation Ferritin Total Bilirubin 0.3 Direct Bilirubin 0.1 Indirect Bilirubin 0.2 AST 14 L ALT 19 Alkaline Phosphatase 47 Total Protein 6.1 L Albumin 2.8 L 05/08/18 05/08/18 05/08/18 22:06 17:48 15:00 WBC RBC Hgb 8.4 L Hct MCV MCH MCHC RDW Plt Count MPV Neut % (Auto) Lymph % (Auto) [place] % (Auto) Eos % (Auto) Baso % (Auto) Neut # (Auto) Lymph # (Auto) [place] # (Auto) Eos # (Auto) Baso # (Auto) WBC Differential Differential Comment Retic Count Absolute Retic Sodium Potassium Chloride Carbon Dioxide Anion Gap BUN Creatinine Estimated GFR POC Glucose 140 H 122 H Random Glucose Calcium Phosphorus Magnesium Iron TIBC % Saturation Ferritin Total Bilirubin Direct Bilirubin Indirect Bilirubin AST ALT Alkaline Phosphatase Total Protein Albumin 05/08/18 05/08/18 05/08/18 12:15 06:15 06:15 WBC RBC Hgb Hct MCV MCH MCHC RDW Plt Count MPV Neut % (Auto) Lymph % (Auto) [place] % (Auto) Eos % (Auto) Baso % (Auto) Neut # (Auto) Lymph # (Auto) [place] # (Auto) Eos # (Auto) Baso # (Auto) WBC Differential Differential Comment Retic Count 1.1 Absolute Retic 29.4 Sodium Potassium Chloride Carbon Dioxide Anion Gap BUN Creatinine Estimated GFR POC Glucose 133 H Random Glucose Calcium Phosphorus Magnesium Iron 109 TIBC 202 L % Saturation 54.1 H Ferritin 97 Total Bilirubin Direct Bilirubin Indirect Bilirubin AST ALT Alkaline Phosphatase Total Protein Albumin Preliminary micro results at discharge 04/26/18 16:15 Fungal Culture - Preliminary Tissue - Foot No growth in 1 week 04/26/18 16:15 Mycobacterial Culture - Preliminary Tissue - Foot No growth in 1 week 04/26/18 16:15 Fungal Culture - Preliminary Other No growth in 1 week 04/26/18 16:15 Mycobacterial Culture - Preliminary Other No growth in 1 week - Impressions ITS Impressions Chest X-Ray 04/25/18 21:11 CONCLUSION: No infiltrates seen. Foot X-Ray 04/25/18 21:11 CONCLUSION: Bony erosive changes at the distal medial aspect of the first metatarsal and probably the medial sesamoid at the MTP most characteristic of osteomyelitis with overlying soft tissue swelling. There is periarticular osteopenia in the right foot as well. Foot MRI 04/30/18 00:00 CONCLUSION: 1. Interval development of bone marrow edema, cortical erosion and abnormal enhancement involving the distal first metatarsal characteristic of osteomyelitis. 2. Moderate joint effusion of the first metatarsophalangeal joint which may represent septic arthritis. 3. Bone marrow edema at the base of the proximal phalanx of the great toe which may represent reactive changes or early osteomyelitis. 4. Extensive soft tissue swelling throughout the forefoot with possible tract extending from medial forefoot wound to first metatarsophalangeal joint. Abdomen X-Ray 05/02/18 00:00 CONCLUSION: Benign-appearing abdomen. Considerable stool in the colon. Discharge Plan - Discharge Order Discharge Orders: Discharge Order (Routine); Ordered 05/09/18 Ordered By: Govind Owusu - Discharge Details Anticipated Discharge Date: 05/09/18 - Physicians Team Primary Care Provider: NON STAFF,PROVIDER Attending Provider: Govind Owusu Other Providers: Andrew Morales ; Silvia Will DPM ; Jermain Hilton MD ; Ramo Lei MD ; Laura [facility],[place] ; Nicolas Chu MD
[2018-05-09] MEDS ORDERED: Iron Sucrose Inj 100 MG/5 ML Vial IV.PUSH ONE (13:00)
[2018-05-09 13:09] VITALS: BP 110/58; PULSE 54; O2SAT 100
[2018-05-09] MEDS: oxyCODONE/Acetaminophen 10/325 Tablet PO PRN (15:30)
== END 2018-05-09 16:07 | disposition home health service (06) ==
LOC: NEDA 15:46 → NEPE 15:46 → NEPGCP 04-26 03:06 → N05 04-26 08:03
PROVIDERS: ADMIT Internal Medicine; ATTEND Internal Medicine
DX: Z95.1 Presence of aortocoronary bypass graft; M86.671 Other chronic osteomyelitis, right ankle and foot; R33.9 Retention of urine, unspecified; B96.20 Unspecified Escherichia coli [E. coli] as the cause of diseases classified elsewhere; L97.519 Non-pressure chronic ulcer of other part of right foot with unspecified severity; B95.2 Enterococcus as the cause of diseases classified elsewhere; N18.3 Chronic kidney disease, stage 3 (moderate); F43.22 Adjustment disorder with anxiety; B96.5 Pseudomonas (aeruginosa) (mallei) (pseudomallei) as the cause of diseases classified elsewhere; Z83.3 Family history of diabetes mellitus; I12.9 Hypertensive chronic kidney disease with stage 1 through stage 4 chronic kidney disease, or unspecified chronic kidney disease; R19.7 Diarrhea, unspecified; Z79.4 Long term (current) use of insulin; N40.0 Benign prostatic hyperplasia without lower urinary tract symptoms; Z79.82 Long term (current) use of aspirin; E13.621 Other specified diabetes mellitus with foot ulcer; E78.5 Hyperlipidemia, unspecified; Z86.14 Personal history of Methicillin resistant Staphylococcus aureus infection; E13.69 Other specified diabetes mellitus with other specified complication; I25.10 Atherosclerotic heart disease of native coronary artery without angina pectoris; Z16.21 Resistance to vancomycin; E13.42 Other specified diabetes mellitus with diabetic polyneuropathy; E13.22 Other specified diabetes mellitus with diabetic chronic kidney disease; R11.2 Nausea with vomiting, unspecified; E87.5 Hyperkalemia; D63.1 Anemia in chronic kidney disease; E13.65 Other specified diabetes mellitus with hyperglycemia; R26.81 Unsteadiness on feet; Z95.3 Presence of xenogenic heart valve